=== PATIENT | male | born 1950 | race Two or more races ===

== ENCOUNTER 2023-09-03 10:27 | Emergency (ER) | payer OTHER, MEDICAID ==
[~2023-09-03] VITALS: Ht 180.3 cm; Wt 84.0 kg
[2023-09-03 16:27] VITALS: BP 162/88; PULSE 66; RESP 18; TEMP 98.1; O2SAT 99
== END 2023-09-03 19:03 | disposition home or self-care (01) ==
LOC: EDBD 10:27 → ER 10:27
DX: S30.0XXA Contusion of lower back and pelvis, initial encounter (principal); I10 Essential (primary) hypertension; I25.2 Old myocardial infarction; Z88.0 Allergy status to penicillin; W18.09XA Striking against other object with subsequent fall, initial encounter; Y93.01 Activity, walking, marching and hiking; Y92.090 Kitchen in other non-institutional residence as the place of occurrence of the external cause; Y99.8 Other external cause status
CPT/HCPCS: 72100; 73502; 93005

== ENCOUNTER 2024-10-03 11:15 | Inpatient (IN) | payer OTHER, MEDICAID ==
[~2024-10-03] VITALS: Ht 180.3 cm; Wt 65.8 kg
[~2024-10-03 11:15] MED LIST: AMLO1TAB22 PO; ASPI-325 PO; ATOR40TA52 PO; CHOL20007 PO; CLOP75TA70 PO; FURO20TA3 PO; ISOS10TA5 PO; LUBI24CA7 PO; MET25T PO; SPIR25TA8 PO
--- NOTE | 2024-10-03 11:51 | ED.PDOC ---
General HPI Comments 73Y M with PMHx HTN and CVA presents to ED via EMS for chief complaint hematuria and penile bleeding [id number]. Additional symptoms include confusion, weakness, and decreased mentation. Pt was seen at [facility] 6weeks ago and was placed on indwelling catheter. Pt has been bed bound after the hospitalization. Time Seen by MD: 11:25 Primary Care Provider: UNKNOWN Reviewed notes: Assistant Floor Covering Printer Notes, Medications, Allergies Allergies: Coded Allergies: Penicillins (Verified Allergy, Severe, 09/03/23) Aspirin (Verified Allergy, Mild, 10/11/23) Lisinopril (Verified Allergy, Mild, 10/15/23) Ibuprofen (Verified Allergy, Unknown, 10/11/23) Home Meds Active Scripts Metoprolol Tartrate (Lopressor) 25 Mg Tb, 12.5 MG PO BID for 90 Days, #90 TAB Prov:RAMESH MENDIOLA MD 10/12/23 Clopidogrel Bisulfate (CLOPIDOGREL) 75 Mg Tab, 75 MG PO DAILY for 90 Days, #90 TAB Prov:RAMESH MENDIOLA MD 10/12/23 Aspirin (Aspirin Low Dose) 81 Mg Tab, 81 MG PO DAILY for 90 Days, #90 TAB 3 Refills Prov:RAMESH MENDIOLA MD 10/12/23 Reported Medications Cholecalciferol (VITAMIN D3) 2,000 Unit Tab, 1000 TAB PO DAILY, TAB 10/10/23 Spironolactone (Spironolactone) 25 Mg Tab, 0.5 TAB PO DAILY, #90 TAB 1 Refill 10/10/23 Lubiprostone (Amitiza) 24 Mcg Cap, 1 CAP PO BIDWM, #60 CAP 5 Refills 10/10/23 Isosorbide Mononitrate (Isosorbide Mononitrate) 10 Mg Tab, 20 MG PO DAILY for 30 Days, MG 10/10/23 Furosemide (Furosemide) 20 Mg Tab, 20 MG PO DAILY for 30 Days, MG 10/10/23 Atorvastatin Calcium (ATORVASTATIN CALCIUM) 40 Mg Tab, 1 TAB PO HS, #30 TAB 5 Refills 10/10/23 Amlodipine Besylate (Amlodipine Besylate) 5 Mg Tab, 10 MG PO DAILY for 30 Days, MG 10/10/23 Information Source: Patient Mode of Arrival: EMS Brought in by: EMS Severity: Moderate Timing: Weeks Duration: Since onset Onset: Spontaneous Symptoms: Hematuria History of: Other Location: None Modifying factors: None associated signs and symptoms: Hematuria, Other Past Medical History PAST MEDICAL HISTORY: CAD, CVA, Dementia, HTN, [place] Surgical History: Denies all surgeries Family History Family History: Unknown Social History Smoker: Non-Smoker Alcohol: Denies ETOH Use Drugs: Denies Drug Use Lives In: Assisted Care Constitutional: reports: fatigue, malaise, weakness; denies: chills, diaphoresis, fever, sweats, others EENTM: denies: blurred vision, double vision, ear bleeding, ear discharge, ear drainage, ear pain, ear ringing, eye pain, eye redness, hearing loss, mouth pain, mouth swelling, nasal discharge, nose bleeding, nose congestion, nose pain, photophobia, tearing, throat pain, throat swelling, voice changes, others Respiratory: denies: cough, hemoptysis, orthopnea, SOB at rest, shortness of breath, SOB with excertion, stridor, wheezing, others Cardiovascular: denies: chest pain, dizzy spells, diaphoresis, Dyspnea on exertion, edema, irregular heart beat, left arm pain, lightheadedness, palpitations, PND, syncope, others Gastrointestinal: denies: abdomen distended, abdominal pain, blood streaked bowels, constipated, diarrhea, dysphagia, difficulty swallowing, hematemesis, melena, nausea, poor appetite, poor fluid intake, rectal bleeding, rectal pain, vomiting, others Genitourinary: reports: hematuria; denies: burning, dysuria, flank pain, janet quency, incontinence, penile discharge, penile sore, pain, testicle pain, testicle swelling, urgency, others Neurological: denies: dizziness, fainting, headache, left sided numbness, left sided weakness, numbness, paresthesia, pre-existing deficit, right sided numbness, right sided weakness, seizure, speech problems, tingling, tremors, weakness, others Musculoskeletal: denies: back pain, gout, joint pain, joint swelling, muscle pain, muscle stiffness, neck pain, others Integumetry: denies: bruises, change in color, change in hair/nails, dryness, laceration, lesions, lumps, rash, wounds, others Allergic/Immunocompromised: denies: Difficulty Healing, Frequent Infections, Hi ves, Itching, others Hematologic/Lymphatic: denies: anemia, blood clots, easy bleeding, easy bruising, swollen glands, others Endocrine: denies: excessive hunger, excessive sweating, excessive thirst, excessive urination, flushing, intolerance to cold, intolerance to heat, unexplained weight gain, unexplained weight loss, others Psychiatric: denies: anxiety, bipolar disorder, depression, hopeless, panic disorder, schizophrenia, sleepless, suicidal, others All Other Systems: Reviewed and Negative Physical Exam General Appearance: Moderate Distress, Normal HEENT: Normal ENT Inspection, Pharynx Normal, TMs Normal Neck: Full Range of Motion, Non-Tender, Normal, Normal Inspection Respiratory: Chest Non-Tender, Lungs Clear, No Accessory Muscle Use, No Respiratory Distress, Normal Breath Sounds Cardiovascular: No Edema, No JVD, No Murmur, No Gallop, Normal Peripheral Pulses, Regular Rate/Rhythm Breast Exam: Deferred Gastrointestinal: No Organomegaly, Non Tender, No Pulsatile Mass, Normal Bowel Sounds, Soft Genitalia: Deferred Pelvic: Deferred Rectal: Deferred Extremities: No calf tenderness, Normal capillary refill, Non-tender, No pedal edema Musculoskeletal : Apperance: Normal Neurologic: Disoriented, Motor Weakness Cerebellar Function: NOT DONE Reflexes: NOT DONE Skin: Dry, Normal Color, Warm Peripheral Pulses: 3+ Radial (R), 3+ Radial (L) Lymphatic: No Adenopathy Was a procedure done? Was a procedure done?: No Differential Diagnosis Kidney stone (Female): Musculoskeletal pain, Urinary obstruction, Urolithiasis Kidney stone (Male): Urolithiasis, Urinary tract infection Urinary Problem (Female): N/A X-Ray, Labs, Meds, VS Vital Signs Date Time Temp Pulse Resp B/P (MAP) Pulse Ox O2 Delivery O2 Flow Rate FiO2 10/03/24 12:18 60 10/03/24 12:12 99.0 20 18 145/87 (106) 99 10/03/24 12:10 61 16 98 Room Air* 0 21 10/03/24 12:10 61 16 146/78 (100) 98 10/03/24 11:22 166 Lab Test 10/03/24 14:25 10/03/24 11:50 Range/Units Urine Color Light-brown Yellow Urine Clarity Turbid H Clear Urine pH 6.0 5.0-9.0 Urine Specific [place] 1.015 1.001-1.035 Urine Protein 3+ H Negative Urine Ketones Negative Negative Urine Blood 3+ H Negative /uL Urine Nitrite 2+ H Negative Urine Bilirubin Negative Negative Urine Urobilinogen Normal Negative mg/dL Urine Leukocyte Esterase 3+ Negative /uL Urine RBC 1017 0 - 3 /hpf Urine WBC 228 0 - 3 /hpf Urine WBC Clumps Present None Seen /hpf Urine Squamous Epithelial Cells Few <5 /hpf Urine Bacteria Many H None Seen /hpf Urine Mucus Few None Seen Urine Glucose Normal Normal mg/dL White Blood Count 5.8 4.4-10.8 10^3/uL Red Blood Count 3.34 L 4.5-5.90 10^6/uL Hemoglobin 10.2 L 13.5-17.5 g/dL Hematocrit 30.7 L 41.0-53.0 % Mean Corpuscular Volume 92.1 80.0-100.0 fL Mean Corpuscular Hemoglobin 30.6 28.0-32.0 pg Mean Corpuscular Hemoglobin Concent 33.2 32.0-36.0 g/dL Red Cell Distribution Width 17.9 H 11.8-14.3 % Platelet Count 341 140-450 10^3/uL Mean Platelet Volume 7.3 6.9-10.8 fL Neutrophils (%) (Auto) 71.1 37.0-80.0 % Lymphocytes (%) (Auto) 18.8 10.0-50.0 % Monocytes (%) (Auto) 6.5 0.0-12.0 % Eosinophils (%) (Auto) 2.7 0.0-7.0 % Basophils (%) (Auto) 0.9 0.0-2.0 % Neutrophils # (Auto) 4.1 1.6-8.6 10 ^3/uL Lymphocytes # (Auto) 1.1 0.4-5.4 10 ^3/uL Monocytes # (Auto) 0.4 0-1.3 10 ^3/uL Eosinophils # (Auto) 0.2 0-0.8 10 ^3/uL Basophils # (Auto) 0.1 0-0.2 10 ^3/uL Nucleated Red Blood Cells 0.1 % Sodium Level 143 136-145 mmol/L Potassium Level 4.8 3.5-5.1 mmol/L Chloride Level 112 H 98-107 mmol/L Carbon Dioxide Level 25 20-31 mmol/L Anion Gap 6 5-15 Blood Urea Nitrogen 36 H 9-23 mg/dL Creatinine 2.44 H 0.700-1.30 mg/dL Glomerular Filtration Rate Calc 27 >90 mL/min BUN/Creatinine Ratio 14.8 10.0-20.0 Serum Glucose 82 74-106 mg/dL Calcium Level 9.1 8.7-10.4 mg/dL Troponin I High Sensitivity 18 </=54 ng/L [place] [id number] Ph: [phone] DIAGNOSTIC IMAGING Diagnostic Imaging Report : [id number] Signed PATIENT: SUMAN GARCIA ACCT: [id number] UNIT: [id number] : 1950 LOC: ER ROOM / BED: / AGE / SEX: 73 / M ADM STATUS: REG ER SERVICE 26 ORDERING PHYSICIAN: DANIEL BUNN MD PROCEDURE(s): CXRP - CHEST PORTABLE REASON: sob ORDER NUMBER(s): [id number], ACCESSION NUMBER(s): [id number] CHEST RADIOGRAPH Indication: sob Technique: Single frontal view of the chest was obtained Comparison: XY CHEST PORTABLE on DOS: 10/12/23 FINDINGS: Lines and Tubes: None Lungs: Pulmonary vascular congestion. Pleura: No effusion. No pneumothorax. Cardiomediastinal contours: Unremarkable Bones: No acute osseous abnormality. IMPRESSION: Pulmonary vascular congestion. ATED BY: JAZMINE CARTER MD DICTATED DATE/TIME: 10/03/241220 SIGNED BY: JAZMINE CARTER MD SIGNED DATE/TIME: 10/03/24 1221 CC: Patient answers to name. States that she he has been disoriented. Family informed the paramedics. Vitals stable. Waiting for family. Chest x-ray reviewed does show congestion. He is bed ridden. History of CVA. Possible sepsis from urine. Kidney function elevated. Establish intravenous access. Was given fluids. Was given Bactrim antibiotic. Reviewed his previous visit. Time of 1ST Reevaluation: 11:55 Reevaluation 1ST: Unchanged Patient Education/Counseling: Diagnosis, Treatment Family Education/Counseling: No Family Present Departure 1 Departure Time of Disposition: 17:24 Impression: Primary Impression: Sepsis due to urinary tract infection Additional Impression: Metabolic encephalopathy Disposition: ADMITTED INPATIENT Admit to: Med Surg Condition: Guarded Critical Care Note Critical Care Time?: Yes (45 min-critical care time only) Stability Stability form required: No Heart Score Heart Score: Heart Score Response (Comments) Value History Slightly Suspicious 0 EKG Normal 0 Age >65 2 Risk Factors >3 or Hx ASHD 2 Troponin Normal limit 0 Total 4 I personally scribed for DANIEL BUNN MD ([email or web address]) on 10/03/24 at 11:51. Electronically submitted by Rae Hall ([email or web address]). I personally scribed for DANIEL BNUN MD ([email or web address]) on 10/03/24 at 14:30. Electronically submitted by Rae Hall ([email or web address]). I personally scribed for DANIEL BUNN MD ([email or web address]) on 10/03/24 at 17:20. Electronically submitted by Alice Meadows ([email or web address]). DANIEL BUNN MD Oct 03, 2024 11:51
[2024-10-03 12:03] LABS: Basophils # (auto) 0.1 10 ^3/uL (0-0.2); Basophils % (auto) 0.9 % (0.0-2.0); Eosinophils # (auto) 0.2 10 ^3/uL (0-0.8); Eosinophils % (auto) 2.7 % (0.0-7.0); Hematocrit 30.7 % (41.0-53.0); Hemoglobin 10.2 g/dL (13.5-17.5); Lymphocytes # (auto) 1.1 10 ^3/uL (0.4-5.4); Lymphocytes % (auto) 18.8 % (10.0-50.0); Mean Corpuscular Hemoglobin 30.6 pg (28.0-32.0); Mean Corpuscular Hgb Conc. 33.2 g/dL (32.0-36.0); Mean Corpuscular Volume 92.1 fL (80.0-100.0); Monocytes # (auto) 0.4 10 ^3/uL (0-1.3); Monocytes % (auto) 6.5 % (0.0-12.0); Neutrophils # (auto) 4.1 10 ^3/uL (1.6-8.6); Neutrophils % (auto) 71.1 % (37.0-80.0); Nucleated Red Blood Cells % 0.1 %; Platelet Count (auto) 341 10^3/uL (140-450); Red Blood Cells 3.34 10^6/uL (4.5-5.90); Red Cell Distribution Width 17.9 % (11.8-14.3); White Blood Cell 5.8 10^3/uL (4.4-10.8)
[2024-10-03 12:10] VITALS: PULSE 61; RESP 16; O2SAT 98
[2024-10-03 12:13] LABS: Anion Gap 6 (5-15); Carbon Dioxide 25 mmol/L (20-31); Potassium 4.8 mmol/L (3.5-5.1); Sodium 143 mmol/L (136-145)
[2024-10-03 12:14] LABS: Calcium 9.1 mg/dL (8.7-10.4)
[2024-10-03 12:19] LABS: BUN/Creatinine Ratio 14.8 (10.0-20.0); Glucose 82 mg/dL (74-106)
[2024-10-03 12:22] LABS: Blood Urea Nitrogen 36 mg/dL (9-23); Chloride 112 mmol/L (98-107)
--- NOTE | 2024-10-03 12:23 | DVH ---
CHEST RADIOGRAPH Indication: sob Technique: Single frontal view of the chest was obtained Comparison: XY CHEST PORTABLE on DOS: 10/12/23 FINDINGS: Lines and Tubes: None Lungs: Pulmonary vascular congestion. Pleura: No effusion. No pneumothorax. Cardiomediastinal contours: Unremarkable Bones: No acute osseous abnormality. IMPRESSION: Pulmonary vascular congestion.
[2024-10-03 14:50] LABS: Urine Bacteria MANY /hpf (None Seen); Urine Blood 3+ /uL (Negative); Urine Clarity Turbid (Clear); Urine Color Light-Brown (Yellow); Urine Mucus FEW (None Seen); Urine Protein, UAD 3+ (Negative); Urine Specific Gravity 1.015 (1.001-1.035); Urine Squamous Epithelial Cell FEW /hpf (<5); Urine Urobilinogen Normal (Negative); Urine WBC 228 /hpf (0 - 3); Urine WBC Clumps PRESENT /hpf (None Seen)
[2024-10-03] MEDS: SODIUM CHLORIDE 0.9% 1,000 ML IV ONE (19:13)
--- NOTE | 2024-10-03 19:13 | ECG ---
[facility] Test Date: 2024-10-03 Test Time: 11:19:36 Pat Name: SUMAN GARCIA Department: ED Room: [address] [place] [address] Gender: M Medicine Man: BOBBY : 1950 Requested By: DANIEL BUNN Order Number: [id number] Reading MD: Dionicio Saha Measurements Intervals [place] Rate: 76 P: 0 SC: 0 QRS: 104 QRSD: 164 T: 0 QT: 367 QTc: 413 Interpretive Statements Atrial fibrillation Paired ventricular premature complexes Right bundle branch block Consider left ventricular hypertrophy Repol abnrm, global ischemia, diffuse leads Artifact in lead(s) II,III,aVR,aVL,aVF,V1,V3,V4,V5,V6 Electronically Signed On 10-04-2024 14:14:29 PST by Dionicio Saha Please click the below link to view image of tracing.
[2024-10-03 19:30] VITALS: PULSE 60; RESP 17; O2SAT 97
[2024-10-03] MEDS: SULFAMETH-TRIMETH 80/16MG-ML 15 ML in D5W 5% 500 ML IV ONE (20:42)
--- NOTE | 2024-10-03 21:12 | DVH ---
EXAM: CT HEAD WITHOUT CONTRAST INDICATION: ALOC TECHNIQUE: CT of the head without intravenous contrast. Radiation Dose Information: CT Dose: CTDI volume is 66.65 mGy. Dose-length product is 1313.25 mGy*cm The dose indicators for CT are the volume Computed Tomography (CT) Dose Index (CTDIvol) and the Dose Length Product (DLP), and are measured in units of mGy and mGy-cm, respectively. These indicators are not patient dose, but values generated from the CT scanner acquisition factors. The report includes radiation exposure data for exposures received during this examination. COMPARISON: None FINDINGS: There is no evidence of acute intracranial hemorrhage, extra-axial collection, mass effect, midline s hift, herniation or hydrocephalus. Cortical atrophy with mild periventricular microvascular angiopathy. The ventricles, sulci and cisterns are age appropriate. The crocker-white differentiation is intact. Patchy periventricular and subcortical white matter hypoattenuation is nonspecific but may be related to small vessel ischemic disease. The visualized paranasal sinuses and mastoid air cells are clear. The surrounding soft tissues and osseous structures are unremarkable. IMPRESSION: No acute intracranial hemorrhage. 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 No CT findings of territorial ischemia.
[2024-10-04 04:16] LABS: COVID19 ANTIGEN SOFIA FIA NEGATIVE (NEGATIVE)
[2024-10-04 07:30] VITALS: PULSE 60; RESP 18; O2SAT 95
--- NOTE | 2024-10-04 08:33 | DVHHP2 ---
History of Present Illness Reason for Visit: Hematuria History of Present Illness This 73-year-old male presents in the ED via EMS with a chief complaint of hematuria. The patient is currently alert and oriented, denies chest pain, shortness of breath, abdominal pain, or other acute symptoms. In the emergency department the patient is mildly confused, and is found to have UTI, possible sepsis for which warrant admission. Past medical history of hypertension, CVA, CAD, BPH, IBS, and bed-bound. Past Medical History As stated in HPI Past Surgical History PCI Family History Reviewed, non-contributory to the management of this case. Past Social History The patient lives at home, denies smoking, alcohol or illicit drugs abuse. Review of Systems Constitutional: Yes: Malaise; No: Fever, Chills, Sweats, Weakness, Other Eyes: No: Pain, Vision change, Conjunctivae inflammation, Eyelid inflammation, Other, Redness ENT: No: Ear pain, Ear discharge, Nose pain, Nose discharge, Nose congestion, Mouth pain, Mouth swelling, Throat pain, Throat swelling, Other Respiratory: No: Cough, Dry, Shortness of breath, SOB with excertion, Wheezing, Hemoptysis, Pleuritic Pain, Sputum, Wheezing, Other Cardiovascular: No: Chest Pain, Palpitations, Orthopnea, Paroxysmal Noc. Dyspnea, Edema, Lt Headedness, Other Gastrointestinal: No: Nausea, Vomiting, Abdominal Pain, Diarrhea, Constipation, Melena, Hematochezia, Other Genitourinary: No Dysuria, No Frequency, No Incontinence; Hematuria; No Retention, No Other Musculoskeletal: No: other, neck pain, shoulder pain, arm pain, back pain, hand pain, leg pain, foot pain Skin: No: Rash, Lesions, Jaundice, Bruising, Other Neurological: No: Weakness, Numbness, Incoordination, Change in speech, Confusion, Seizures, Other Allergies: Coded Allergies: Penicillins (Verified Allergy, Severe, 09/03/23) Aspirin (Verified Allergy, Mild, 10/11/23) Lisinopril (Verified Allergy, Mild, 10/15/23) Ibuprofen (Verified Allergy, Unknown, 10/11/23) Exam Vital Signs Vital Signs Date Time Temp Pulse Resp B/P (MAP) Pulse Ox O2 Delivery O2 Flow Rate FiO2 10/04/24 08:00 60 10/04/24 02:00 16 167/82 (110) 99 10/03/24 19:30 97.9 97.9 10/03/24 19:30 Room Air* 0 21 General Appearance: Alert, Cooperative, mild distress HEENT: Atraumatic, PERRLA, EOMI, Mucous membr. moist/pink Respiratory: Clear to auscultation, Normal air movement Cardiovascular: Regular rate, Normal S1, Normal S2 Abdominal: Normal bowel sounds, Soft, No tenderness, No hepatospenomegaly Extremities: No clubbing, No cyanosis, No edema, Normal pulses, No tenderness/swelling Skin: No rashes, No breakdown, No significant lesion Neuro: Other (Right-sided weakness s/p CVA) Psych/Mental Status: Mental status NL Labs/Xrays Labs Test 10/04/24 02:52 10/03/24 21:25 10/03/24 19:35 10/03/24 14:25 Range/Units SARS-CoV-2 Antigen (Rapid) Negative NEGATIVE Troponin I High Sensitivity 23 </=54 ng/L Lactic Acid Level 0.8 0.4-2.0 mmol/L Urine Color Light-brown Yellow Urine Clarity Turbid H Clear Urine pH 6.0 5.0-9.0 Urine Specific [place] 1.015 1.001-1.035 Urine Protein 3+ H Negative Urine Ketones Negative Negative Urine Blood 3+ H Negative /uL Urine Nitrite 2+ H Negative Urine Bilirubin Negative Negative Urine Urobilinogen Normal Negative mg/dL Urine Leukocyte Esterase 3+ Negative /uL Urine RBC 1017 0 - 3 /hpf Urine WBC 228 0 - 3 /hpf Urine WBC Clumps Present None Seen /hpf Urine Squamous Epithelial Cells Few <5 /hpf Urine Bacteria Many H None Seen /hpf Urine Mucus Few None Seen Urine Glucose Normal Normal mg/dL Test 10/03/24 11:50 Range/Units White Blood Count 5.8 4.4-10.8 10^3/uL Red Blood Count 3.34 L 4.5-5.90 10^6/uL Hemoglobin 10.2 L 13.5-17.5 g/dL Hematocrit 30.7 L 41.0-53.0 % Mean Corpuscular Volume 92.1 80.0-100.0 fL Mean Corpuscular Hemoglobin 30.6 28.0-32.0 pg Mean Corpuscular Hemoglobin Concent 33.2 32.0-36.0 g/dL Red Cell Distribution Width 17.9 H 11.8-14.3 % Platelet Count 341 140-450 10^3/uL Mean Platelet Volume 7.3 6.9-10.8 fL Neutrophils (%) (Auto) 71.1 37.0-80.0 % Lymphocytes (%) (Auto) 18.8 10.0-50.0 % Monocytes (%) (Auto) 6.5 0.0-12.0 % Eosinophils (%) (Auto) 2.7 0.0-7.0 % Basophils (%) (Auto) 0.9 0.0-2.0 % Neutrophils # (Auto) 4.1 1.6-8.6 10 ^3/uL Lymphocytes # (Auto) 1.1 0.4-5.4 10 ^3/uL Monocytes # (Auto) 0.4 0-1.3 10 ^3/uL Eosinophils # (Auto) 0.2 0-0.8 10 ^3/uL Basophils # (Auto) 0.1 0-0.2 10 ^3/uL Nucleated Red Blood Cells 0.1 % Sodium Level 143 136-145 mmol/L Potassium Level 4.8 3.5-5.1 mmol/L Chloride Level 112 H 98-107 mmol/L Carbon Dioxide Level 25 20-31 mmol/L Anion Gap 6 5-15 Blood Urea Nitrogen 36 H 9-23 mg/dL Creatinine 2.44 H 0.700-1.30 mg/dL Glomerular Filtration Rate Calc 27 >90 mL/min BUN/Creatinine Ratio 14.8 10.0-20.0 Serum Glucose 82 74-106 mg/dL Calcium Level 9.1 8.7-10.4 mg/dL PROCEDURE(s): HWOCT - HEAD WITHOUT CONTRAST REASON: ALOC ORDER NUMBER(s): [id number], ACCESSION NUMBER(s): [id number] EXAM: CT HEAD WITHOUT CONTRAST INDICATION: ALOC TECHNIQUE: CT of the head without intravenous contrast. Radiation Dose Information: CT Dose: CTDI volume is 66.65 mGy. Dose-length product is 1313.25 mGy*cm The dose indicators for CT are the volume Computed Tomography (CT) Dose Index (CTDIvol) and the Dose Length Product (DLP), and are measured in units of mGy and mGy-cm, respectively. These indicators are not patient dose, but values generated from the CT scanner acquisition factors. The report includes radiation exposure data for exposures received during this examination. COMPARISON: None FINDINGS: There is no evidence of acute intracranial hemorrhage, extra-axial collection, mass effect, midline shift, herniation or hydrocephalus. Cortical atrophy with mild periventricular microvascular angiopathy. The ventricles, sulci and cisterns are age appropriate. The crocker-white differentiation is intact. Patchy periventricular and subcortical white matter hypoattenuation is nonspecific but may be related to small vessel ischemic disease. The visualized paranasal sinuses and mastoid air cells are clear. The surrounding soft tissues and osseous structures are unremarkable. IMPRESSION: No acute intracranial hemorrhage. 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 No CT findings of territorial ischemia. Assessment/Plan Assessment/Plan # rule out sepsis # acute cystitis # hematuria Admit telemetry unit Vanco per pharmacy Blood in urine culture IV fluid Indwelling urinary catheter Tamsulosin # ANALILIA on CKD IV fluid Consider Nephrology consult if does not improve # pulmonary congestion Continue with Lasix # CAD s/p PCI # HFrEF cont with Plavix, statins, BB # hypertension Continue with the spironolactone, Lasix, isosorbide Hydralazine as needed Monitor # right hemiparesis s/p CVA # bed-bound Continue with statins, Plavix # IBS Amitiza # BPH Tamsulosin, finasteride # Vit D deficiency Vitamin-D DVT prophylaxis Medical plan discussed with patient and RN Plan discussed with: Patient Date of Service: Oct 04, 2024 Billing Provider: ESTELA HOWE Common Visit Codes: [id number] INP/OBS CARE (HIGH) ESTELA HOWE Oct 04, 2024 08:33
[2024-10-04] MEDS ORDERED: SODIUM CHLORIDE 0.9% 1,000 ML IV SCH (08:45)
[2024-10-04] MEDS ORDERED: ONDANSETRON HCL 4 MG/2 ML VIAL IV PRN ×2 (08:45→10:00)
[2024-10-04] MEDS: SODIUM CHLORIDE 0.9% 1,000 ML IV SCH (10:00)
[2024-10-04] MEDS ORDERED: ENOXAPARIN SOD 30 MG/0.3 ML SYRINGE SC SCH (10:00)
[2024-10-04] MEDS: ENOXAPARIN SOD 30 MG/0.3 ML SYRINGE SC SCH (10:00)
[2024-10-04] MEDS ORDERED: FIN5T PO (10:15)
[2024-10-04] MEDS ORDERED: TAMS0.4C39 PO (10:15)
[2024-10-04] MEDS ORDERED: VANCOMYCIN PER PHARMACY 0 MG IV SCH (10:15)
[2024-10-04] MEDS: VANCOMYCIN 1GM/250ML KIT 250 ML IV ONE (11:30)
[2024-10-04 21:30] VITALS: PULSE 97; RESP 18; O2SAT 100
[2024-10-04 22:16] VITALS: BP 168/97; PULSE 65; RESP 20; TEMP 97.8; O2SAT 97
[2024-10-04 22:40] VITALS: BP 168/97; PULSE 63; RESP 20; TEMP 97.8; O2SAT 97
[2024-10-04] MEDS: ATORVASTATIN 20 MG TAB PO SCH (23:09)
[2024-10-04] MEDS: METOPROLOL TARTRATE 25 MG TAB PO SCH (23:09)
[2024-10-05 01:00] VITALS: BP 175/80; PULSE 48; RESP 20; TEMP 97.8; O2SAT 99
[2024-10-05] MEDS: hydrALAZINE HCL 20 MG/ML VL IV ONE ×2 (03:04→12:11)
[2024-10-05 05:00] VITALS: BP 143/77; PULSE 54; RESP 20; TEMP 98; O2SAT 99
[2024-10-05 08:00] VITALS: PULSE 64
[2024-10-05 08:24] LABS: Anion Gap 7 (5-15); BUN/Creatinine Ratio 13.9 (10.0-20.0); Bilirubin, Total 0.6 mg/dL (0.2-1.0); Calcium 9.2 mg/dL (8.7-10.4); Carbon Dioxide 23 mmol/L (20-31); Potassium 4.5 mmol/L (3.5-5.1)
[2024-10-05 08:31] LABS: Basophils # (auto) 0.1 10 ^3/uL (0-0.2); Basophils % (auto) 1.5 % (0.0-2.0); Eosinophils # (auto) 0.3 10 ^3/uL (0-0.8); Eosinophils % (auto) 5.6 % (0.0-7.0); Hematocrit 30.6 % (41.0-53.0); Hemoglobin 10.4 g/dL (13.5-17.5); Lymphocytes % (auto) 20.1 % (10.0-50.0); Mean Corpuscular Hemoglobin 31.6 pg (28.0-32.0); Mean Corpuscular Volume 92.8 fL (80.0-100.0); Monocytes # (auto) 0.4 10 ^3/uL (0-1.3); Monocytes % (auto) 7.8 % (0.0-12.0); Neutrophils # (auto) 3.2 10 ^3/uL (1.6-8.6); Nucleated Red Blood Cells % 0.1 %; Platelet Count (auto) 362 10^3/uL (140-450); Red Cell Distribution Width 17.9 % (11.8-14.3); White Blood Cell 4.9 10^3/uL (4.4-10.8)
[2024-10-05 08:35] LABS: Alanine Aminotransferase < 9 U/L (7-40); Albumin 2.8 g/dL (3.2-4.8); Alkaline Phosphatase 133 U/L (46-116); Aspartate Aminotransferase 11 U/L (13-40); Blood Urea Nitrogen 29 mg/dL (9-23); Chloride 115 mmol/L (98-107); Glucose 69 mg/dL (74-106); Sodium 145 mmol/L (136-145); Total Protein 5.5 g/dL (5.7-8.2)
[2024-10-05 09:00] VITALS: BP_SYST 185; BP_SYST 194; BP_DIAS 85; BP_DIAS 88; PULSE 59; RESP 23; O2SAT 99
[2024-10-05] MEDS: FINASTERIDE 5 MG TAB PO SCH (09:58)
[2024-10-05] MEDS: TAMSULOSIN HYDROCHLORIDE 0.4 MG CAP PO SCH (09:59)
[2024-10-05] MEDS: CHOLECALCIFEROL (VITD3) 1,000UNIT=25mCg TAB PO SCH (09:59)
[2024-10-05] MEDS: ASPirin-EC 81 mg tab PO SCH (09:59)
[2024-10-05] MEDS: SPIRONOLACTONE 25 MG TAB PO SCH (10:04)
[2024-10-05] MEDS: FUROSEMIDE 20 MG TAB PO SCH (10:04)
[2024-10-05] MEDS: amLODIPine BESYLATE 5 MG TAB PO SCH (10:05)
[2024-10-05] MEDS: CLOPIDOGREL BISULFATE 75 MG TAB PO SCH (10:05)
[2024-10-05] MEDS: ISOSORBIDE MONONITRATE 20 MG TAB PO SCH (10:06)
--- NOTE | 2024-10-05 11:28 | MEDREC ---
[facility] Intervention Section I [facility] Intervention: Review courses of therapy (PLEASE CONSIDER ADDING COVERAGE FOR GRAM NEGATIVE SEE PRELIMINARY URINE CULTURE) KENRICK MENDIOLA PHARMACIST Oct 05, 2024 11:28
--- NOTE | 2024-10-05 13:07 | DVHPN2 ---
Reviewed: Care Plan, H&P, Labs, Medications, Previous Orders, Radiology Changes from previous H/P or p: No Changes Eyes: No Pain, No Vision change, No Conjunctivae inflammation, No Eyelid inflammation, No Other, No Redness ENT: No Ear pain, No Ear discharge, No Nose pain, No Nose discharge, No Nose congestion, No Mouth pain, No Mouth swelling, No Throat pain, No Throat swelling, No Other Cardiovascular: No Chest Pain, No Palpitations, No Orthopnea, No Paroxysmal Noc. Dyspnea, No Edema, No Lt Headedness, No Other Respiratory: No Cough, No Dry, No Shortness of breath, No SOB with excertion, No Wheezing, No Hemoptysis, No Pleuritic Pain, No Sputum, No Other Gastrointestinal: No Nausea, No Vomiting, No Abdominal Pain, No Diarrhea, No Constipation, No Melena, No Hematochezia, No Other Genitourinary: No Dysuria, No Frequency, No Incontinence; Hematuria; No Retention, No Other Musculoskeletal: No other, No neck pain, No shoulder pain, No arm pain, No back pain, No hand pain, No leg pain, No foot pain Skin: No Rash, No Lesions, No Jaundice, No Bruising, No Other Objective Vitals Vital Signs Date Time Temp Pulse Resp B/P (MAP) Pulse Ox O2 Delivery O2 Flow Rate FiO2 10/05/24 12:11 172/86 10/05/24 10:00 56 10/05/24 09:00 23 99 10/05/24 05:00 98.0 98.0 10/04/24 22:16 Room Air* 0 21 Intake/Output Intake and Output 10/05/24 07:00 Intake Total 300 ml Output Total 3150 ml Balance -2850 ml Intake Oral 200 ml IV Total 100 ml Output Urine Total 3150 ml # Bowel Movements 1 Medications Current Medications Medications Dose Ordered Sig/Yue Route Start Time Stop Time Status Last Admin Dose Admin Sodium Chloride 1,000 ml @ 100 mls/hr Q10H IV 10/04/24 10:00 10/04/24 20:27 100 MLS/HR Ondansetron HCl 4 mg Q4HP PRN IV 10/04/24 10:00 Enoxaparin Sodium 30 mg DAILY SC 10/04/24 10:00 10/04/24 10:00 30 MG Vancomycin HCl 0 ml @ 0 mls/hr UD IV 10/04/24 10:15 Amlodipine Besylate 10 mg DAILY PO 10/05/24 10:00 Aspirin 81 mg DAILY PO 10/05/24 10:00 Clopidogrel Bisulfate 75 mg DAILY PO 10/05/24 10:00 Furosemide 20 mg DAILY PO 10/05/24 10:00 Metoprolol Tartrate 12.5 mg BID PO 10/04/24 22:00 10/04/24 23:09 12.5 MG Spironolactone 12.5 mg DAILY PO 10/05/24 10:00 Atorvastatin Calcium 40 mg HS PO 10/04/24 22:00 10/04/24 23:09 40 MG Cholecalciferol 1,000 unit DAILY PO 10/05/24 10:00 Isosorbide Mononitrate 20 mg DAILY PO 10/05/24 10:00 Patient Own Medication 1 cap BIDWM PO 10/04/24 18:00 Finasteride 5 mg DAILY PO 10/05/24 10:00 Tamsulosin HCl 0.4 mg DAILY PO 10/05/24 10:00 Laboratory Results Laboratory Tests 10/05/24 07:35 Chemistry Test 10/05/24 07:35 Albumin 2.8 g/dL (3.2-4.8) L Calcium Level 9.2 mg/dL (8.7-10.4) Total Protein 5.5 g/dL (5.7-8.2) L LFT Test 10/05/24 07:35 Alanine Aminotransferase (ALT) < 9 U/L (7-40) Alkaline Phosphatase 133 U/L (46-116) H Aspartate Amino Transferase (AST) 11 U/L (13-40) L Total Bilirubin 0.6 mg/dL (0.2-1.0) Urinalysis Test 10/03/24 14:25 Urine Color Light-brown (Yellow) Urine Clarity Turbid (Clear) H Urine pH 6.0 (5.0-9.0) Urine Specific [place] 1.015 (1.001-1.035) Urine Protein 3+ (Negative) H Urine Ketones Negative (Negative) Urine Blood 3+ /uL (Negative) H Urine Nitrite 2+ (Negative) H Urine Bilirubin Negative (Negative) Urine Urobilinogen Normal mg/dL (Negative) Urine Leukocyte Esterase 3+ /uL (Negative) Urine RBC 1017 /hpf (0 - 3) Urine WBC 228 /hpf (0 - 3) Urine WBC Clumps Present /hpf (None Seen) Urine Squamous Epithelial Cells Few /hpf (<5) Urine Bacteria Many /hpf (None Seen) H Urine Mucus Few (None Seen) Urine Glucose Normal mg/dL (Normal) Microbiology Microbiology Date/Time Source Procedure Growth Status 10/03/24 19:35 Blood Blood Culture - Preliminary Resulted 10/03/24 14:35 Urine - [place] Urine Culture - Preliminary Resulted Labs and/or images reviewed: Labs reviewed by me, Image(s) reviewed by me Assessment/Plan Assessment/Plan Sepsis Secondary to urinary tract infection Acute urinary tract infection: Urine cultures growing Gram-negative rods: Start ocephin Bacteremia with Gram-positive cocci in clusters: Start vanco COVID test negative BPH History of coronary artery disease Acute dehydration: IV fluids new line Acute kidney injury BUN 36 creatinine 2.44 improving Moderate Malnutrition Hospice revoked Time Spent 65 minutes Patient is full code Advanced care planning time 20 minutes Condition guarded [facility] Plan discussed with: Patient Date of Service: Oct 05, 2024 Billing Provider: SHUKRI ROCHA MD Common Visit Codes: [id number] CARE 30-74 MIN SHUKRI ROCHA MD Oct 05, 2024 13:07
[2024-10-05] MEDS ORDERED: HYDR25TA88 PO (13:25)
[2024-10-05] MEDS ORDERED: CYAN1TAB11 PO (13:26)
[2024-10-05] MEDS ORDERED: LEVO88TA4 PO (13:26)
[2024-10-05] MEDS: cefTRIAXone 1GM/50ML D5W 50 ML IV ONE (14:37)
[2024-10-05] MEDS: D5W/SOD CHLO 0.9% 1,000 ML IV SCH (14:37)
[2024-10-05] MEDS: VANCOMYCIN 750MG KIT 100 ML IV ONE (15:46)
[2024-10-05 20:00] VITALS: PULSE 75
[2024-10-06] VITALS (11 sets, daily range): BP systolic 133–158; BP diastolic 69–82; PULSE 56–77; RESP 16–18; TEMP 97.4–97.6; O2SAT 97–100
[2024-10-06 07:08] LABS: Basophils # (auto) 0.1 10 ^3/uL (0-0.2); Basophils % (auto) 1.3 % (0.0-2.0); Eosinophils # (auto) 0.3 10 ^3/uL (0-0.8); Eosinophils % (auto) 5.5 % (0.0-7.0); Hematocrit 28.2 % (41.0-53.0); Hemoglobin 9.5 g/dL (13.5-17.5); Lymphocytes # (auto) 1.3 10 ^3/uL (0.4-5.4); Lymphocytes % (auto) 26.7 % (10.0-50.0); Mean Corpuscular Hgb Conc. 33.8 g/dL (32.0-36.0); Mean Corpuscular Volume 94.6 fL (80.0-100.0); Monocytes # (auto) 0.5 10 ^3/uL (0-1.3); Monocytes % (auto) 9.4 % (0.0-12.0); Neutrophils # (auto) 2.8 10 ^3/uL (1.6-8.6); Neutrophils % (auto) 57.1 % (37.0-80.0); Nucleated Red Blood Cells % 0.2 %; Platelet Count (auto) 364 10^3/uL (140-450); Red Blood Cells 2.98 10^6/uL (4.5-5.90); Red Cell Distribution Width 18.1 % (11.8-14.3); White Blood Cell 4.9 10^3/uL (4.4-10.8)
[2024-10-06] MEDS: VANCOMYCIN 500mg/100mL 100 ML IV ONE (11:00)
[2024-10-06] MEDS: cefTRIAXone 1GM/50ML D5W 50 ML IV SCH (11:19)
--- NOTE | 2024-10-06 11:36 | CONS ---
Pharmacy Clinical Information: From Heart Failure Fallout Report on CQM Application, Joshua Valdivia is a 73 year old male with PMH of HTN, CVA, CAD, BPH, IBS, DM, VA, CKD, HFrEF (LVEF 30%). His home medications for heart failure include furosemide, hydralazine, and isosorbide mononitrate. His inpatient medications include furosemide, hydralazine, isosorbide mon onitrate, spironolactone, and metoprolol tartrate. Consider switching to metoprolol succinate since the 2021 HF guidelines cherie mmended sustained-release metoprolol to reduce mortality and hospitalizations. SGLT2i not currently recommended due to UTI. ARB/ARNi not currently recommended due to ANALILIA. ACEi not recommended due to allergy. ORACIO BIANCHI PHARMACIST Oct 06, 2024 11:36
[2024-10-06] MEDS: hydrALAZINE HCL 20 MG/ML VL IV PRN (11:56)
--- NOTE | 2024-10-06 11:58 | DVHPN2 ---
Reviewed: Care Plan, H&P, Labs, Medications, Previous Orders, Radiology Changes from previous H/P or p: No Changes Eyes: No Pain, No Vision change, No Conjunctivae inflammation, No Eyelid inflammation, No Other, No Redness ENT: No Ear pain, No Ear discharge, No Nose pain, No Nose discharge, No Nose congestion, No Mouth pain, No Mouth swelling, No Throat pain, No Throat swelling, No Other Cardiovascular: No Chest Pain, No Palpitations, No Orthopnea, No Paroxysmal Noc. Dyspnea, No Edema, No Lt Headedness, No Other Respiratory: No Cough, No Dry, No Shortness of breath, No SOB with excertion, No Wheezing, No Hemoptysis, No Pleuritic Pain, No Sputum, No Other Gastrointestinal: No Nausea, No Vomiting, No Abdominal Pain, No Diarrhea, No Constipation, No Melena, No Hematochezia, No Other Genitourinary: No Dysuria, No Frequency, No Incontinence; Hematuria; No Retention, No Other Musculoskeletal: No other, No neck pain, No shoulder pain, No arm pain, No back pain, No hand pain, No leg pain, No foot pain Skin: No Rash, No Lesions, No Jaundice, No Bruising, No Other Objective Vitals Vital Signs Date Time Temp Pulse Resp B/P (MAP) Pulse Ox O2 Delivery O2 Flow Rate FiO2 10/06/24 09:00 97.6 64 18 158/69 (98) 100 97.6 10/05/24 20:00 Room Air* 0 21 Intake/Output Intake and Output 10/06/24 07:00 Intake Total 1400 ml Output Total 2000 ml Balance -600 ml Intake Oral 550 ml IV Total 850 ml Output Urine Total 2000 ml Medications Current Medications Medications Dose Ordered Sig/Yue Route Start Time Stop Time Status Last Admin Dose Admin Ondansetron HCl 4 mg Q4HP PRN IV 10/04/24 10:00 Enoxaparin Sodium 30 mg DAILY SC 10/04/24 10:00 10/06/24 11:18 30 MG Vancomycin HCl 0 ml @ 0 mls/hr UD IV 10/04/24 10:15 Amlodipine Besylate 10 mg DAILY PO 10/05/24 10:00 10/05/24 14:39 10 MG Aspirin 81 mg DAILY PO 10/05/24 10:00 10/05/24 14:40 81 MG Clopidogrel Bisulfate 75 mg DAILY PO 10/05/24 10:00 10/05/24 14:40 75 MG Furosemide 20 mg DAILY PO 10/05/24 10:00 10/05/24 14:39 20 MG Metoprolol Tartrate 12.5 mg BID PO 10/04/24 22:00 10/05/24 22:58 12.5 MG Spironolactone 12.5 mg DAILY PO 10/05/24 10:00 10/05/24 14:41 12.5 MG Atorvastatin Calcium 40 mg HS PO 10/04/24 22:00 10/05/24 22:56 40 MG Cholecalciferol 1,000 unit DAILY PO 10/05/24 10:00 10/05/24 14:40 1,000 UNIT Isosorbide Mononitrate 20 mg DAILY PO 10/05/24 10:00 10/05/24 14:39 20 MG Patient Own Medication 1 cap BIDWM PO 10/04/24 18:00 Finasteride 5 mg DAILY PO 10/05/24 10:00 10/05/24 14:40 5 MG Tamsulosin HCl 0.4 mg DAILY PO 10/05/24 10:00 10/05/24 14:40 0.4 MG Ceftriaxone Sodium 50 ml @ 100 mls/hr DAILY@09 IV 10/06/24 09:00 10/06/24 11:19 100 MLS/HR Dextrose/Sodium Chloride 1,000 ml @ 125 mls/hr Q8H IV 10/05/24 13:30 10/06/24 05:32 125 MLS/HR Hydralazine HCl 10 mg Q6HP PRN IV 10/05/24 13:30 Laboratory Results Laboratory Tests 10/05/24 07:35 10/06/24 05:32 Urinalysis Test 10/03/24 14:25 Urine Color Light-brown (Yellow) Urine Clarity Turbid (Clear) H Urine pH 6.0 (5.0-9.0) Urine Specific [place] 1.015 (1.001-1.035) Urine Protein 3+ (Negative) H Urine Ketones Negative (Negative) Urine Blood 3+ /uL (Negative) H Urine Nitrite 2+ (Negative) H Urine Bilirubin Negative (Negative) Urine Urobilinogen Normal mg/dL (Negative) Urine Leukocyte Esterase 3+ /uL (Negative) Urine RBC 1017 /hpf (0 - 3) Urine WBC 228 /hpf (0 - 3) Urine WBC Clumps Present /hpf (None Seen) Urine Squamous Epithelial Cells Few /hpf (<5) Urine Bacteria Many /hpf (None Seen) H Urine Mucus Few (None Seen) Urine Glucose Normal mg/dL (Normal) Microbiology Microbiology Date/Time Source Procedure Growth Status 10/05/24 03:15 Nose MRSA Screen - Final Complete 10/03/24 19:35 Blood Blood Culture - Final Staphylococcus epidermidis Complete 10/03/24 14:35 Urine - [place] Urine Culture - Preliminary Resulted Labs and/or images reviewed: Labs reviewed by me, Image(s) reviewed by me Assessment/Plan Assessment/Plan Sepsis Secondary to acute urinary tract infection Acute urinary tract infection: Urine cultures growing Gram-negative rods: Start rocephin Blood cultures contaminated, stop vancomycin COVID test negative BPH History of coronary artery disease Acute dehydration: IV fluids new line Acute kidney injury BUN 36 creatinine 2.44 improving Moderate Malnutrition Hospice revoked Time Spent 65 minutes Patient is full code Advanced care planning time 20 minutes Condition guarded Patient came from [facility] Patient belongs to [place] Plan discussed with: Patient My Orders Orders - SHUKRI ROCHA MD Procedure Category Date Status Time Ceftriaxone 1gm/50ml PHA 10/06/24 In Process D5w (Rocephin) 09:00 * Lead Simulation Modeling Engineer CONS 10/05/24 Transmitted Consult D5w/Sod Chlo 0.9% PHA 10/05/24 In Process (D5w Ns 0.9%) 13:30 Hydralazine Injection PHA 10/05/24 In Process (Apresoline Inject 13:30 Date of Service: Oct 06, 2024 Billing Provider: SHUKRI ROCHA MD Common Visit Codes: [id number] INP/OBS CARE(HIGH) SHUKRI ROCHA MD Oct 06, 2024 11:58
--- NOTE | 2024-10-06 12:32 | MEDREC ---
[facility] Intervention Section I [facility] Intervention: Review courses of therapy (PLEASE CONSIDER DE-ESCALATION BASED ON CULTURE RESULTS (D/C VANCOMYCIN) ) KENRICK MENDIOLA PHARMACIST Oct 06, 2024 12:32
[2024-10-07] VITALS (8 sets, daily range): BP systolic 142–176; BP diastolic 48–91; PULSE 50–85; RESP 16–19; TEMP 97.3–98.3; O2SAT 96–100
--- NOTE | 2024-10-07 11:11 | DVHPN2 ---
Subjective Seen and examined at bedside. I tried calling the daughter, no answer left a VM. Patient is confused, baseline unknown. Reviewed: Care Plan, H&P, Labs, Medications, Previous Orders, Radiology Changes from previous H/P or p: No Changes Eyes: No Pain, No Vision change, No Conjunctivae inflammation, No Eyelid inflammation, No Other, No Redness ENT: No Ear pain, No Ear discharge, No Nose pain, No Nose discharge, No Nose congestion, No Mouth pain, No Mouth swelling, No Throat pain, No Throat swelling, No Other Cardiovascular: No Chest Pain, No Palpitations, No Orthopnea, No Paroxysmal Noc. Dyspnea, No Edema, No Lt Headedness, No Other Respiratory: No Cough, No Dry, No Shortness of breath, No SOB with excertion, No Wheezing, No Hemoptysis, No Pleuritic Pain, No Sputum, No Other Gastrointestinal: No Nausea, No Vomiting, No Abdominal Pain, No Diarrhea, No Constipation, No Melena, No Hematochezia, No Other Genitourinary: No Dysuria, No Frequency, No Incontinence; Hematuria; No Retention, No Other Musculoskeletal: No other, No neck pain, No shoulder pain, No arm pain, No back pain, No hand pain, No leg pain, No foot pain Skin: No Rash, No Lesions, No Jaundice, No Bruising, No Other Objective Vitals Vital Signs Date Time Temp Pulse Resp B/P (MAP) Pulse Ox O2 Delivery O2 Flow Rate FiO2 10/07/24 09:44 66 176/72 10/07/24 08:54 97.7 16 100 97.7 10/06/24 20:00 Room Air* 0 21 Intake/Output Intake and Output 10/07/24 07:00 Intake Total 2030.0 ml Output Total 1725 ml Balance 305.0 ml Intake Oral 480 ml IV Total 1550.0 ml Output Urine Total 1725 ml Exam Gen: in bed confused Cvs: N S1.S2, RRR Resp: Diminished Abd: Soft Msk: Contracture lower extremity Hand Rug Cleaner: AAO x 2 Medications Current Medications Medications Dose Ordered Sig/Yue Route Start Time Stop Time Status Last Admin Dose Admin Ondansetron HCl 4 mg Q4HP PRN IV 10/04/24 10:00 Enoxaparin Sodium 30 mg DAILY SC 10/04/24 10:00 10/07/24 09:41 30 MG Vancomycin HCl 0 ml @ 0 mls/hr UD IV 10/04/24 10:15 Amlodipine Besylate 10 mg DAILY PO 10/05/24 10:00 10/07/24 09:43 10 MG Aspirin 81 mg DAILY PO 10/05/24 10:00 10/07/24 09:41 81 MG Clopidogrel Bisulfate 75 mg DAILY PO 10/05/24 10:00 10/07/24 09:42 75 MG Furosemide 20 mg DAILY PO 10/05/24 10:00 10/07/24 09:44 20 MG Metoprolol Tartrate 12.5 mg BID PO 10/04/24 22:00 10/07/24 09:44 12.5 MG Spironolactone 12.5 mg DAILY PO 10/05/24 10:00 10/07/24 09:41 12.5 MG Atorvastatin Calcium 40 mg HS PO 10/04/24 22:00 10/06/24 21:11 40 MG Cholecalciferol 1,000 unit DAILY PO 10/05/24 10:00 10/07/24 09:41 1,000 UNIT Isosorbide Mononitrate 20 mg DAILY PO 10/05/24 10:00 10/06/24 16:06 20 MG Patient Own Medication 1 cap BIDWM PO 10/04/24 18:00 10/07/24 08:00 1 CAP Finasteride 5 mg DAILY PO 10/05/24 10:00 10/07/24 09:42 5 MG Tamsulosin HCl 0.4 mg DAILY PO 10/05/24 10:00 10/07/24 09:41 0.4 MG Ceftriaxone Sodium 50 ml @ 100 mls/hr DAILY@09 IV 10/06/24 09:00 10/07/24 09:26 100 MLS/HR Dextrose/Sodium Chloride 1,000 ml @ 125 mls/hr Q8H IV 10/05/24 13:30 10/07/24 04:34 125 MLS/HR Hydralazine HCl 10 mg Q6HP PRN IV 10/05/24 13:30 10/06/24 11:56 10 MG Laboratory Results Laboratory Tests 10/05/24 07:35 10/06/24 05:32 10/07/24 06:26 Urinalysis Test 10/03/24 14:25 Urine Color Light-brown (Yellow) Urine Clarity Turbid (Clear) H Urine pH 6.0 (5.0-9.0) Urine Specific [place] 1.015 (1.001-1.035) Urine Protein 3+ (Negative) H Urine Ketones Negative (Negative) Urine Blood 3+ /uL (Negative) H Urine Nitrite 2+ (Negative) H Urine Bilirubin Negative (Negative) Urine Urobilinogen Normal mg/dL (Negative) Urine Leukocyte Esterase 3+ /uL (Negative) Urine RBC 1017 /hpf (0 - 3) Urine WBC 228 /hpf (0 - 3) Urine WBC Clumps Present /hpf (None Seen) Urine Squamous Epithelial Cells Few /hpf (<5) Urine Bacteria Many /hpf (None Seen) H Urine Mucus Few (None Seen) Urine Glucose Normal mg/dL (Normal) Microbiology Microbiology Date/Time Source Procedure Growth Status 10/05/24 03:15 Nose MRSA Screen - Final Complete 10/03/24 19:35 Blood Blood Culture - Final Staphylococcus epidermidis Complete 10/03/24 14:35 Urine - [place] Urine Culture - Final Escherichia coli Complete Assessment/Plan Assessment/Plan # Bacteremia - Repeat Blood Cultures - Vanco # Sepsis ruled out # Metabolic Encephalopathy - UA - Cont Rocephin # Possible Dementia??? - Baseline unknown # Wheelchair / bed bound? - Was on hospice # Severe protein calorie malnutrition - Dietary Cx # DVT Prop- Lovenox Subq Plan discussed with: Patient My Orders Orders - LYN CORDERO MD Procedure Category Date Status Time Dietary Cons For NOURISH 10/07/24 Transmitted Malnutrition 11:03 Complete Blood Count LAB 10/08/24 Verified 04:00 Comprehensive LAB 10/08/24 Verified Metabolic Panel 04:00 Magnesium LAB 10/08/24 Verified 04:00 Pt Request For Service PT 10/07/24 Transmitted 11:04 Blood Culture LEONID 10/07/24 Transmitted 11:04 Discontinue Tele IGLESIA 10/07/24 Transmitted 11:04 Date of Service: Oct 07, 2024 Billing Provider: LYN CORDERO MD Common Visit Codes: [id number] INP/OBS CARE(HIGH) LYN CORDERO MD Oct 07, 2024 11:11
[2024-10-07 13:17] LABS: Folate (Folic Acid) 7.45 ng/mL (>5.38)
--- NOTE | 2024-10-07 15:22 | ECG ---
[facility] Test Date: 2024-10-06 Test Time: 13:17:55 Pat Name: SUMAN GARCIA Department: Room: 0286T Gender: M Ob Tech: michael yang : 1950 Requested By: ESTELA HOWE Order Number: [id number] Reading MD: Karis Hussein Measurements Intervals [place] Rate: 130 P: 0 OR: 0 QRS: 16 QRSD: 144 T: 66 QT: 493 QTc: 725 Interpretive Statements Likely ectopic atrial rhythm Ventricular premature complexes Aberrant conduction of SV complex(es) Consider LVH Artifact in lead(s) III,aVL,aVF,V1,V2,V3,V4,V5,V6 Electronically Signed On 10-07-2024 21:14:59 PST by Karis Hussein Please click the below link to view image of tracing.
--- NOTE | 2024-10-07 15:22 | ECG ---
[facility] Test Date: 2024-10-06 Test Time: 13:13:47 Pat Name: SUMAN GARCIA Department: Room: 0286T Gender: M Wire Transfer Clerk: michael yang : 1950 Requested By: ESTELA HOWE Order Number: [id number] Reading MD: Karis Hussein Measurements Intervals [place] Rate: 59 P: 254 AR: 165 QRS: 57 QRSD: 116 T: 80 QT: 477 QTc: 473 Interpretive Statements Sinus or ectopic atrial rhythm Ventricular trigeminy Probable left ventricular hypertrophy Artifact in lead(s) I,III,aVR,aVL,aVF,V1,V2,V6 Electronically Signed On 10-07-2024 21:13:58 PST by Karis Hussein Please click the below link to view image of tracing.
[2024-10-07] MEDS: VANCOMYCIN 750MG KIT 100 ML IV ONE (16:42)
[2024-10-08] VITALS (8 sets, daily range): BP systolic 112–154; BP diastolic 49–83; PULSE 56–85; RESP 16–20; TEMP 97.3–97.9; O2SAT 67–100
[2024-10-08 07:18] LABS: Basophils # (auto) 0.1 10 ^3/uL (0-0.2); Basophils % (auto) 2.6 % (0.0-2.0); Eosinophils # (auto) 0.2 10 ^3/uL (0-0.8); Eosinophils % (auto) 5.7 % (0.0-7.0); Hematocrit 27.2 % (41.0-53.0); Hemoglobin 9.2 g/dL (13.5-17.5); Lymphocytes # (auto) 1.2 10 ^3/uL (0.4-5.4); Lymphocytes % (auto) 30.7 % (10.0-50.0); Mean Corpuscular Hemoglobin 31.2 pg (28.0-32.0); Mean Corpuscular Hgb Conc. 33.8 g/dL (32.0-36.0); Mean Corpuscular Volume 92.3 fL (80.0-100.0); Monocytes # (auto) 0.3 10 ^3/uL (0-1.3); Monocytes % (auto) 7.7 % (0.0-12.0); Neutrophils # (auto) 2.2 10 ^3/uL (1.6-8.6); Neutrophils % (auto) 53.3 % (37.0-80.0); Platelet Count (auto) 348 10^3/uL (140-450); Red Blood Cells 2.95 10^6/uL (4.5-5.90); Red Cell Distribution Width 17.2 % (11.8-14.3); White Blood Cell 4.1 10^3/uL (4.4-10.8)
[2024-10-08 07:38] LABS: Anion Gap 8 (5-15); BUN/Creatinine Ratio 11.9 (10.0-20.0); Calcium 8.8 mg/dL (8.7-10.4); Carbon Dioxide 21 mmol/L (20-31); Magnesium 1.8 mg/dL (1.6-2.6); Potassium 4.3 mmol/L (3.5-5.1); Sodium 141 mmol/L (136-145)
[2024-10-08 07:39] LABS: Bilirubin, Total 0.4 mg/dL (0.2-1.0)
[2024-10-08 07:41] LABS: Alanine Aminotransferase 9 U/L (7-40); Albumin 2.8 g/dL (3.2-4.8); Alkaline Phosphatase 121 U/L (46-116); Aspartate Aminotransferase 10 U/L (13-40); Blood Urea Nitrogen 24 mg/dL (9-23); Chloride 112 mmol/L (98-107); Glucose 72 mg/dL (74-106); Total Protein 5.5 g/dL (5.7-8.2)
--- NOTE | 2024-10-08 16:28 | DVHPN2 ---
Subjective Seen and examined at bedside. Repeat cultures POSITIVE. Will need BRYAN. Reviewed: Care Plan, H&P, Labs, Medications, Previous Orders, Radiology Changes from previous H/P or p: No Changes Eyes: No Pain, No Vision change, No Conjunctivae inflammation, No Eyelid inflammation, No Other, No Redness ENT: No Ear pain, No Ear discharge, No Nose pain, No Nose discharge, No Nose congestion, No Mouth pain, No Mouth swelling, No Throat pain, No Throat swelling, No Other Cardiovascular: No Chest Pain, No Palpitations, No Orthopnea, No Paroxysmal Noc. Dyspnea, No Edema, No Lt Headedness, No Other Respiratory: No Cough, No Dry, No Shortness of breath, No SOB with excertion, No Wheezing, No Hemoptysis, No Pleuritic Pain, No Sputum, No Other Gastrointestinal: No Nausea, No Vomiting, No Abdominal Pain, No Diarrhea, No Constipation, No Melena, No Hematochezia, No Other Genitourinary: No Dysuria, No Frequency, No Incontinence; Hematuria; No Retention, No Other Musculoskeletal: No other, No neck pain, No shoulder pain, No arm pain, No back pain, No hand pain, No leg pain, No foot pain Skin: No Rash, No Lesions, No Jaundice, No Bruising, No Other Objective Vitals Vital Signs Date Time Temp Pulse Resp B/P (MAP) Pulse Ox O2 Delivery O2 Flow Rate FiO2 10/08/24 13:00 97.4 73 16 147/83 (104) 98 97.4 10/07/24 20:00 Room Air* 0 21 Intake/Output Intake and Output 10/08/24 07:00 Intake Total 1400 ml Output Total 2075 ml Balance -675 ml Intake Oral 1400 ml Output Urine Total 2075 ml Exam Gen: in bed confused Cvs: N S1.S2, RRR Resp: Diminished Abd: Soft Msk: Contracture lower extremity Scrap Bunch Maker: AAO x 2 Medications Current Medications Medications Dose Ordered Sig/Yue Route Start Time Stop Time Status Last Admin Dose Admin Ondansetron HCl 4 mg Q4HP PRN IV 10/04/24 10:00 Enoxaparin Sodium 30 mg DAILY SC 10/04/24 10:00 10/08/24 09:50 30 MG Vancomycin HCl 0 ml @ 0 mls/hr UD IV 10/04/24 10:15 Amlodipine Besylate 10 mg DAILY PO 10/05/24 10:00 10/08/24 09:53 10 MG Aspirin 81 mg DAILY PO 10/05/24 10:00 10/08/24 09:53 81 MG Clopidogrel Bisulfate 75 mg DAILY PO 10/05/24 10:00 10/08/24 09:51 75 MG Furosemide 20 mg DAILY PO 10/05/24 10:00 10/07/24 09:44 20 MG Metoprolol Tartrate 12.5 mg BID PO 10/04/24 22:00 10/07/24 21:06 12.5 MG Spironolactone 12.5 mg DAILY PO 10/05/24 10:00 10/08/24 09:52 12.5 MG Atorvastatin Calcium 40 mg HS PO 10/04/24 22:00 10/07/24 21:06 40 MG Cholecalciferol 1,000 unit DAILY PO 10/05/24 10:00 10/08/24 09:50 1,000 UNIT Isosorbide Mononitrate 20 mg DAILY PO 10/05/24 10:00 10/08/24 09:51 20 MG Patient Own Medication 1 cap BIDWM PO 10/04/24 18:00 10/08/24 08:11 1 CAP Finasteride 5 mg DAILY PO 10/05/24 10:00 10/08/24 09:50 5 MG Tamsulosin HCl 0.4 mg DAILY PO 10/05/24 10:00 10/08/24 09:53 0.4 MG Ceftriaxone Sodium 50 ml @ 100 mls/hr DAILY@09 IV 10/06/24 09:00 10/08/24 08:10 100 MLS/HR Hydralazine HCl 10 mg Q6HP PRN IV 10/05/24 13:30 10/07/24 17:27 10 MG Laboratory Results Laboratory Tests 10/08/24 06:29 Chemistry Test 10/08/24 06:29 Albumin 2.8 g/dL (3.2-4.8) L Calcium Level 8.8 mg/dL (8.7-10.4) Magnesium Level 1.8 mg/dL (1.6-2.6) Total Protein 5.5 g/dL (5.7-8.2) L LFT Test 10/08/24 06:29 Alanine Aminotransferase (ALT) 9 U/L (7-40) Alkaline Phosphatase 121 U/L (46-116) H Aspartate Amino Transferase (AST) 10 U/L (13-40) L Total Bilirubin 0.4 mg/dL (0.2-1.0) Urinalysis Test 10/03/24 14:25 Urine Color Light-brown (Yellow) Urine Clarity Turbid (Clear) H Urine pH 6.0 (5.0-9.0) Urine Specific [place] 1.015 (1.001-1.035) Urine Protein 3+ (Negative) H Urine Ketones Negative (Negative) Urine Blood 3+ /uL (Negative) H Urine Nitrite 2+ (Negative) H Urine Bilirubin Negative (Negative) Urine Urobilinogen Normal mg/dL (Negative) Urine Leukocyte Esterase 3+ /uL (Negative) Urine RBC 1017 /hpf (0 - 3) Urine WBC 228 /hpf (0 - 3) Urine WBC Clumps Present /hpf (None Seen) Urine Squamous Epithelial Cells Few /hpf (<5) Urine Bacteria Many /hpf (None Seen) H Urine Mucus Few (None Seen) Urine Glucose Normal mg/dL (Normal) Microbiology Microbiology Date/Time Source Procedure Growth Status 10/07/24 11:32 Blood Blood Culture - Preliminary Resulted 10/05/24 03:15 Nose MRSA Screen - Final Complete 10/03/24 14:35 Urine - [place] Urine Culture - Final Escherichia coli Complete Assessment/Plan Assessment/Plan # Bacteremia - Repeat Blood Cultures - Vanco - BRYAN # Sepsis ruled out # Metabolic Encephalopathy - UA - Cont Rocephin # Possible Dementia??? - Baseline unknown # Wheelchair / bed bound? - Was on hospice # Severe protein calorie malnutrition - Dietary Cx # DVT Prop- Lovenox Subq Plan discussed with: Patient My Orders Orders - LYN CORDERO MD Procedure Category Date Status Time * Cardiology Consult CONS 10/08/24 Transmitted 13:32 Complete Blood Count LAB 10/09/24 Verified 04:00 Comprehensive LAB 10/09/24 Verified Metabolic Panel 04:00 C-Reactive Protein LAB 10/09/24 Verified 04:00 Erythrocyte LAB 10/09/24 Verified Sedimentation Rate 04:00 Blood Culture LEONID 10/09/24 Verified 04:00 Date of Service: Oct 08, 2024 Billing Provider: LYN CORDERO MD Common Visit Codes: [id number] INP/OBS CARE(HIGH) LYN CORDERO MD Oct 08, 2024 16:28
[2024-10-08] MEDS: VANCOMYCIN 500mg/100mL 100 ML IV ONE (16:41)
--- NOTE | 2024-10-08 16:54 | DVHINCON2 ---
Date Seen: Oct 08, 2024 Referring Physician MD Lois Reason for Consultation BRYAN History of Present Illness This is a 73-year-old male patient who presents to the emergency room with chief complaint of hematuria. At the time of assessment the patient is confused and only alert to self. Patient's daughter at bedside able to answer all questions. Per patient's daughter, she became worried when she noted blood in the patient's Bacon catheter. She reports that the patient was hospitalized in August and sent home with a urinary catheter for retention. He now comes to the emergency room for further evaluation of new onset hematuria. Cardiology is being consulted at this time for transesophageal echocardiogram request given positive blood cultures. Initial twelve lead electrocardiogram reveals ectopic rhythm with PVCs (artifact seen in almost every lead, EKG machine reading "extreme tachycardia"). Significant past medical history includes coronary artery disease status post PTCA x 1 ALIYAH to proximal to mid LAD, ischemic cardiomyopathy, history myocardial infarction x2, hypertension, hyperlipidemia, history of CVA x2 with residual left-sided deficit, type 2 diabetes mellitus, BPH with urinary retention and long-term Bacon catheter, and dementia. 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 Of note, the patient was seen at this facility on 10/10/23 for an acute anterolateral massive ST-elevation myocardial infarction in which he underwent emergent coronary angiography with successful PCI to proximal to mid LAD using a single drug-eluting stent. Past Medical History Past medical history reviewed. No other significant than mentioned above. Past Surgical History Denies Family History: Alzheimer's disease G8 FATHER Hypertension G8 MOTHER G8 FATHER Family History Family history reviewed. Social History Patient has a 63 pack-year history, quit smoking approximately one year ago Patient denies any alcohol use Patient denies any drug use Allergies: Coded Allergies: Penicillins (Verified Allergy, Severe, 09/03/23) Aspirin (Verified Allergy, Mild, 10/11/23) Lisinopril (Verified Allergy, Mild, 10/15/23) Ibuprofen (Verified Allergy, Unknown, 10/11/23) Home Meds Active Scripts Metoprolol Tartrate (Lopressor) 25 Mg Tb, 12.5 MG PO BID for 90 Days, #90 TAB Prov:RAMESH MENDIOLA MD 10/12/23 Clopidogrel Bisulfate (CLOPIDOGREL) 75 Mg Tab, 75 MG PO DAILY for 90 Days, #90 TAB Prov:ALHURANI,RAMESH E MD 10/12/23 Aspirin (Aspirin Low Dose) 81 Mg Tab, 81 MG PO DAILY for 90 Days, #90 TAB 3 Refills Prov:RAMESH MENDIOLA MD 10/12/23 Reported Medications Levothyroxine Sodium (Levothyroxine Sodium) 88 Mcg Tab, 75 MCG PO QAM for 30 Days, MCG 10/05/24 Cyanocobalamin (Vitamin B12) 1,000 Mcg Tab, 1000 MCG PO DAILY, TAB 10/05/24 Hydralazine Hcl (Hydralazine Hcl) 25 Mg Tab, 25 MG PO TID for 30 Days, MG 10/05/24 Tamsulosin Hcl (Tamsulosin Hcl) 0.4 Mg Cap, 1 CAP PO DAILY 10/04/24 Finasteride (Finasteride) 5 Mg Tab, 1 TAB PO DAILY 10/04/24 Cholecalciferol (VITAMIN D3) 2,000 Unit Tab, 1000 TAB PO DAILY, TAB 10/10/23 Spironolactone (Spironolactone) 25 Mg Tab, 0.5 TAB PO DAILY, #90 TAB 1 Refill 10/10/23 Lubiprostone (Amitiza) 24 Mcg Cap, 1 CAP PO BIDWM, #60 CAP 5 Refills 10/10/23 Isosorbide Mononitrate (Isosorbide Mononitrate) 10 Mg Tab, 20 MG PO DAILY for 30 Days, MG 10/10/23 Furosemide (Furosemide) 20 Mg Tab, 20 MG PO DAILY for 30 Days, MG 10/10/23 Atorvastatin Calcium (ATORVASTATIN CALCIUM) 40 Mg Tab, 1 TAB PO HS, #30 TAB 5 Refills 10/10/23 Amlodipine Besylate (Amlodipine Besylate) 5 Mg Tab, 10 MG PO DAILY for 30 Days, MG 10/10/23 Home Meds Home medications reviewed. Review of Systems Constitutional: No symptom reported Ears, Nose, & Throat: No symptom reported Eyes: No symptom reported Neurological: No symptoms reported Pulmonary/Respiratory: No symptoms reported Cardiovascular: No symptom reported Gastrointestinal: No symptom reported Genitourinary: Hematuria Musculoskeletal: No symptom reported Skin: No symptom reported Psychiatric: No symptom reported Endocrine: No symptom reported Hematologic/Lymphatic: No symptom reported Vital Signs Vital Signs Date Time Temp Pulse Resp B/P (MAP) Pulse Ox O2 Delivery O2 Flow Rate FiO2 1/2/25 13:00 97.4 73 16 147/83 (104) 98 97.4 10/08/24 08:00 Room Air* 0 21 Physical Exam General Appearance: Calm, relaxed. Frail Pulmonary/Respiratory: Clear, bilateral breaths sounds. Cardiovascular/Chest: Regular rate and rhythm. Peripheral Pulses: 2+ Radial (R). 2+ Radial (L). 2+ Pedal (R). 2+ Pedal (L) Abdominal Exam: Normal bowel sounds. Ankle Exam: Negative ankle edema Lower extremities: Negative lower extremity edema Neuro/Mental Status: A/OX1, confused Thoughts/Psych: Deferred Appearance: No acute distress. Skin Exam: Normal inspection. Normal color. Warm and dry. Labs/Diagnostic Data Labs Test 10/08/24 06:29 10/07/24 11:32 10/04/24 02:52 10/03/24 21:25 Range/Units White Blood Count 4.1 L 4.4-10.8 10^3/uL Red Blood Count 2.95 L 4.5-5.90 10^6/uL Hemoglobin 9.2 L 13.5-17.5 g/dL Hematocrit 27.2 L 41.0-53.0 % Mean Corpuscular Volume 92.3 80.0-100.0 fL Mean Corpuscular Hemoglobin 31.2 28.0-32.0 pg Mean Corpuscular Hemoglobin Concent 33.8 32.0-36.0 g/dL Red Cell Distribution Width 17.2 H 11.8-14.3 % Platelet Count 348 140-450 10^3/uL Mean Platelet Volume 7.2 6.9-10.8 fL Neutrophils (%) (Auto) 53.3 37.0-80.0 % Lymphocytes (%) (Auto) 30.7 10.0-50.0 % Monocytes (%) (Auto) 7.7 0.0-12.0 % Eosinophils (%) (Auto) 5.7 0.0-7.0 % Basophils (%) (Auto) 2.6 H 0.0-2.0 % Neutrophils # (Auto) 2.2 1.6-8.6 10 ^3/uL Lymphocytes # (Auto) 1.2 0.4-5.4 10 ^3/uL Monocytes # (Auto) 0.3 0-1.3 10 ^3/uL Eosinophils # (Auto) 0.2 0-0.8 10 ^3/uL Basophils # (Auto) 0.1 0-0.2 10 ^3/uL Nucleated Red Blood Cells 0.0 % Sodium Level 141 136-145 mmol/L Potassium Level 4.3 3.5-5.1 mmol/L Chloride Level 112 H 98-107 mmol/L Carbon Dioxide Level 21 20-31 mmol/L Anion Gap 8 5-15 Blood Urea Nitrogen 24 H 9-23 mg/dL Creatinine 2.02 H 0.700-1.30 mg/dL Glomerular Filtration Rate Calc 34 >90 mL/min BUN/Creatinine Ratio 11.9 10.0-20.0 Serum Glucose 72 L 74-106 mg/dL Calcium Level 8.8 8.7-10.4 mg/dL Magnesium Level 1.8 1.6-2.6 mg/dL Total Bilirubin 0.4 0.2-1.0 mg/dL Aspartate Amino Transferase (AST) 10 L 13-40 U/L Alanine Aminotransferase (ALT) 9 7-40 U/L Alkaline Phosphatase 121 H 46-116 U/L Total Protein 5.5 L 5.7-8.2 g/dL Albumin 2.8 L 3.2-4.8 g/dL Random Vancomycin Level 14.6 H 5-10 ug/mL Ammonia 25 11-32 umol/L Vitamin B12 Level 1906 H 211-911 pg/mL Folic Acid 7.45 >5.38 ng/mL Thyroid Stimulating Hormone (TSH) 1.31 0.55-4.78 uIU/mL SARS-CoV-2 Antigen (Rapid) Negative NEGATIVE Troponin I High Sensitivity 23 </=54 ng/L Test 10/03/24 19:35 10/03/24 14:25 Range/Units Lactic Acid Level 0.8 0.4-2.0 mmol/L Urine Color Light-brown Yellow Urine Clarity Turbid H Clear Urine pH 6.0 5.0-9.0 Urine Specific [place] 1.015 1.001-1.035 Urine Protein 3+ H Negative Urine Ketones Negative Negative Urine Blood 3+ H Negative /uL Urine Nitrite 2+ H Negative Urine Bilirubin Negative Negative Urine Urobilinogen Normal Negative mg/dL Urine Leukocyte Esterase 3+ Negative /uL Urine RBC 1017 0 - 3 /hpf Urine WBC 228 0 - 3 /hpf Urine WBC Clumps Present None Seen /hpf Urine Squamous Epithelial Cells Few <5 /hpf Urine Bacteria Many H None Seen /hpf Urine Mucus Few None Seen Urine Glucose Normal Normal mg/dL Microbiology Date/Time Source Procedure Growth Status 10/07/24 11:32 Blood Blood Culture - Preliminary Resulted 10/05/24 03:15 Nose MRSA Screen - Final Complete 10/03/24 14:35 Urine - [place] Urine Culture - Final Escherichia coli Complete Assessment Rule out infective endocarditis Bacteremia CAD with multi vessel disease s/p PTCA x1 ALIYAH to proximal to mid LAD (on Plavix and ASA) Ischemic cardiomyopathy Chronic HFrEF, NYHA class III CVA with residual left-sided deficit Hypertension Hyperlipidemia 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 Srivastava): We will proceed with obtaining a transthoracic echocardiogram to evaluate cardiac function. Previous echocardiogram from 10/11/23 reveals EF 30%, RVSP 60 mmHg and [id number] tricuspid valve regurgitation. We will recommend initiation of guideline directed medical therapy for CHF (avoid GANGA/ARB/ARNI given ANALILIA/CKD, hold SGLT2i given UTI). Continue dual antiplatelet therapy and lipid-lowering agent. Primary care team requesting transesophageal e chocardiogram to rule out infective endocarditis given positive blood cultures. Spoke with patient's daughter who is the decision maker given that the patient is confused from his history of dementia. Educated daughter on plans for BRYAN. Informed consent given to patient's daughter. Patient's daughter is agreeable for the patient to undergo procedure. We will schedule the patient for a transesophageal echocardiogram on 10/09/24 at first availability. Thank you for allowing us to care for this patient. Please call with any questions or concerns. Critical care time spent: 40 minutes This medical document was created using an electronic medical record system with voice recognition software and computerized dictation system. Although this document has been carefully reviewed, there might still be some phonetic and typographical errors. Occasional wrong-word or ``sound-alike substitutions may have occurred due to the inherent limitations of voice recognition software. These areas are purely typographical due to imperfections of the software programs and do not reflect any compromise in the patient's medical care. Ple ase read the chart carefully and recognize, using context, where these substitutions have occurred. Plan discussed with: Patient, Daughter NYHA Physical activity limitations: Class3(Marked) ordinary (activity causes symtoms) Date of Service: Oct 08, 2024 Billing Provider: VANESSA SRIVASTAVA MD Cardiology Common Codes: 94595-KXTXPUG INP/OBS CARE (High) Cardiology Consultation Codes: 25668-[id number] CONSULT <45MIN TED KELLY TIRE ASSEMBLER Oct 08, 2024 16:54
[2024-10-09] VITALS (7 sets, daily range): BP systolic 136–157; BP diastolic 65–76; PULSE 50–91; RESP 16–21; TEMP 97.3–98.6; O2SAT 96–100
[2024-10-09 05:07] LABS: RPR Non Reactive (Non Reactive)
--- NOTE | 2024-10-09 08:13 | DVHSR ---
APPROVED REPORT EXAM: LIMITED Two-dimensional and M-mode echocardiogram with Doppler and color Doppler. Blood Pressure: 112/65 mmHg INDICATION possible endocarditis RISK FACTORS Height: 5'11, Weight: 150 DIMENSIONS LVDd5.0 (3.8-5.7cm)LA (2D)5.1 (1.9-4.0cm)Aortic Root4.3 (2.0-3.7cm) LVDs4.1 (2.5-4.0cm)LA (MM) (1.9-4.0cm)Aortic Cusp Exc1.2 (1.5-2.0cm) EF (%) 35.0 (55-70%)Rt. Atrium5.8 (1.9-4.0cm)Asc. Aorta cm IVSd1.4 (0.7-1.1cm)RV (D) (1.8-2.4cm) PWd1.2 (0.7-1.1cm) Mitral Valve MitralMitral Stenosis E wave0.54m/sMV Mean GR.mmHg A wave0.90m/sMV Peak GR.mmHg E/A ratio0.62D MVAcm2 DECEL [id number] 1/2 Tim[place] Aortic Valve Aortic ValveAortic Stenosis V10.91m/Ponce Mean GR.4mmHg V21.42m/Ponce Peak GR.8mmHg LVOT Diameter2.2 (1.8-2.4cm)Doppler AVA2.43cm2 Pulmonic Valve V20.88m/s Tricuspid Valve TR Velocity2.58m/s [id number] LEFT VENTRICLE Normal left ventricular size. There is zvbz-nn-suyakwxh concentric left ventricular hypertrophy. Ej ection fraction is estimated at 35% based on visual estimate. There is mild global hypokinesis and l ikely akinesis of the inferior and inferolateral appiah. There is impaired relaxation of the left margarette tricle. RIGHT VENTRICLE Right ventricle is mildly dilated in size. Systolic function is preserved. ATRIA There is moderate biatrial enlargement. MITRAL VALVE There is mild mitral annular calcifications. No significant mitral regurgitation. PULMONIC VALVE Not well visualized. TRICUSPID VALVE Normal structure and function. There is trace tricuspid regurgitation. PA systolic pressure is jie mated at 35-40 mm Hg. AORTIC VALVE Trileaflet in morphology. The leaflets appear to be mildly to moderately calcified hemodynamically s ignificant stenosis. No significant regurgitation. GREAT VESSELS The aortic root is moderately dilated and measures 4.3 cm at the sinuses of Valsalva. Proximal ascen ding aorta is not well visualized. PERICARDIAL EFFUSION There is trace pericardial effusion. IVC is of normal size and collapses normally with inspiration. Conclusion Normal left ventricular size with an ejection fraction of 35%. Regional wall motion abnormalities as described above. Uuza-ek-brzysgyl concentric left ventricular hypertrophy with impaired relaxation of the left ventric le. Right ventricle is mildly dilated in size with preserved systolic function. Moderate biatrial enlargement. Calcified aortic valve with no significant stenosis. No hemodynamically significant valvular disease. PA systolic pressure is estimated at 35-40 mmHg. Mildly dilated aortic root.
[2024-10-09 11:31] LABS: Basophils # (auto) 0.1 10 ^3/uL (0-0.2); Basophils % (auto) 1.9 % (0.0-2.0); Eosinophils # (auto) 0.2 10 ^3/uL (0-0.8); Eosinophils % (auto) 6.2 % (0.0-7.0); Hematocrit 27.1 % (41.0-53.0); Hemoglobin 9.3 g/dL (13.5-17.5); Lymphocytes # (auto) 1.4 10 ^3/uL (0.4-5.4); Lymphocytes % (auto) 34.4 % (10.0-50.0); Mean Corpuscular Hemoglobin 32.5 pg (28.0-32.0); Mean Corpuscular Hgb Conc. 34.2 g/dL (32.0-36.0); Mean Corpuscular Volume 95.2 fL (80.0-100.0); Monocytes # (auto) 0.3 10 ^3/uL (0-1.3); Monocytes % (auto) 6.9 % (0.0-12.0); Neutrophils % (auto) 50.6 % (37.0-80.0); Nucleated Red Blood Cells % 0.1 %; Platelet Count (auto) 386 10^3/uL (140-450); Red Blood Cells 2.84 10^6/uL (4.5-5.90); Red Cell Distribution Width 16.9 % (11.8-14.3)
[2024-10-09 11:35] LABS: Alanine Aminotransferase 11 U/L (7-40); Anion Gap 7 (5-15); BUN/Creatinine Ratio 14.5 (10.0-20.0); Calcium 8.9 mg/dL (8.7-10.4); Carbon Dioxide 22 mmol/L (20-31); Potassium 4.8 mmol/L (3.5-5.1); Sodium 139 mmol/L (136-145)
[2024-10-09 11:36] LABS: Aspartate Aminotransferase 14 U/L (13-40)
[2024-10-09 11:37] LABS: Bilirubin, Total 0.5 mg/dL (0.2-1.0); Total Protein 5.7 g/dL (5.7-8.2)
[2024-10-09 11:39] LABS: INR 1.08 (0.9-1.15); Partial Thromboplastin Time 32.4 SEC (24.5-34.5); Prothrombin Time 11.4 sec (9.3-11.8)
[2024-10-09 11:40] LABS: Alkaline Phosphatase 127 U/L (46-116); Blood Urea Nitrogen 33 mg/dL (9-23); Chloride 110 mmol/L (98-107); Glucose 70 mg/dL (74-106)
[2024-10-09 12:00] LABS: CRP High Sensitivity 1.05 mg/dL (<1.0)
[2024-10-09 13:05] LABS: Erythrocyte Sedimentation Rate 35 mm/hr (0-20)
[2024-10-09] MEDS: VANCOMYCIN 500mg/100mL 100 ML IV SCH (17:32)
--- NOTE | 2024-10-09 19:18 | DVHPN2 ---
Subjective Confused; did not share any complaints Reviewed: Care Plan, H&P, Labs, Medications, Previous Orders, Radiology, Other (Consultations) Changes from previous H/P or p: No Changes Genitourinary: Hematuria Objective Vitals Vital Signs Date Time Temp Pulse Resp B/P (MAP) Pulse Ox O2 Delivery O2 Flow Rate FiO2 10/09/24 17:24 97.3 66 21 136/76 (96) 97.3 10/09/24 08:32 97 10/09/24 08:00 Room Air* 0 21 Intake/Output Intake and Output 10/09/24 07:00 Intake Total 650 ml Output Total 1500 ml Balance -850 ml Intake Oral 650 ml Output Urine Total 1500 ml # Bowel Movements 1 General Appearance: Other (Confused) HEENT: Atraumatic Lungs: Clear to auscultation, Normal air movement Cardiovascular: Regular rate, Normal S1, Normal S2 Abdomen: Normal bowel sounds, Soft, No tenderness Genitourinary: Other (Bacon's catheter) Neuro: Normal speech, Cranial nerves 3-12 NL Psych/Mental Status: Other (Confused) Medications Current Medications Medications Dose Ordered Sig/Yue Route Start Time Stop Time Status Last Admin Dose Admin Ondansetron HCl 4 mg Q4HP PRN IV 10/04/24 10:00 Enoxaparin Sodium 30 mg DAILY SC 10/04/24 10:00 10/09/24 10:59 30 MG Vancomycin HCl 0 ml @ 0 mls/hr UD IV 10/04/24 10:15 Amlodipine Besylate 10 mg DAILY PO 10/05/24 10:00 10/09/24 12:29 10 MG Aspirin 81 mg DAILY PO 10/05/24 10:00 10/09/24 12:29 81 MG Clopidogrel Bisulfate 75 mg DAILY PO 10/05/24 10:00 10/09/24 12:30 75 MG Furosemide 20 mg DAILY PO 10/05/24 10:00 10/07/24 09:44 20 MG Metoprolol Tartrate 12.5 mg BID PO 10/04/24 22:00 10/08/24 21:02 12.5 MG Spironolactone 12.5 mg DAILY PO 10/05/24 10:00 10/09/24 12:30 12.5 MG Atorvastatin Calcium 40 mg HS PO 10/04/24 22:00 10/08/24 21:03 40 MG Cholecalciferol 1,000 unit DAILY PO 10/05/24 10:00 10/08/24 09:50 1,000 UNIT Isosorbide Mononitrate 20 mg DAILY PO 10/05/24 10:00 10/09/24 12:28 20 MG Patient Own Medication 1 cap BIDWM PO 10/04/24 18:00 10/09/24 18:24 1 CAP Finasteride 5 mg DAILY PO 10/05/24 10:00 10/08/24 09:50 5 MG Tamsulosin HCl 0.4 mg DAILY PO 10/05/24 10:00 10/09/24 12:29 0.4 MG Ceftriaxone Sodium 50 ml @ 100 mls/hr DAILY@09 IV 10/06/24 09:00 10/09/24 10:51 100 MLS/HR Hydralazine HCl 10 mg Q6HP PRN IV 10/05/24 13:30 10/07/24 17:27 10 MG Vancomycin HCl 100 ml @ 200 mls/hr DAILY@1700 IV 10/09/24 17:00 10/09/24 17:32 200 MLS/HR Laboratory Results Laboratory Tests 10/09/24 10:40 Chemistry Test 10/09/24 10:40 Albumin 3.0 g/dL (3.2-4.8) L Calcium Level 8.9 mg/dL (8.7-10.4) Total Protein 5.7 g/dL (5.7-8.2) Coagulation Test 10/09/24 10:40 Prothrombin Time 11.4 sec (9.3-11.8) Prothrombin Time INR 1.08 (0.9-1.15) Activated Partial Thromboplast Time 32.4 SEC (24.5-34.5) LFT Test 10/09/24 10:40 Alanine Aminotransferase (ALT) 11 U/L (7-40) Alkaline Phosphatase 127 U/L (46-116) H Aspartate Amino Transferase (AST) 14 U/L (13-40) Total Bilirubin 0.5 mg/dL (0.2-1.0) Urinalysis Test 10/03/24 14:25 Urine Color Light-brown (Yellow) Urine Clarity Turbid (Clear) H Urine pH 6.0 (5.0-9.0) Urine Specific [place] 1.015 (1.001-1.035) Urine Protein 3+ (Negative) H Urine Ketones Negative (Negative) Urine Blood 3+ /uL (Negative) H Urine Nitrite 2+ (Negative) H Urine Bilirubin Negative (Negative) Urine Urobilinogen Normal mg/dL (Negative) Urine Leukocyte Esterase 3+ /uL (Negative) Urine RBC 1017 /hpf (0 - 3) Urine WBC 228 /hpf (0 - 3) Urine WBC Clumps Present /hpf (None Seen) Urine Squamous Epithelial Cells Few /hpf (<5) Urine Bacteria Many /hpf (None Seen) H Urine Mucus Few (None Seen) Urine Glucose Normal mg/dL (Normal) Microbiology Microbiology Date/Time Source Procedure Growth Status 10/07/24 11:32 Blood Blood Culture - Preliminary Resulted 10/05/24 03:15 Nose MRSA Screen - Final Complete 10/03/24 14:35 Urine - [place] Urine Culture - Final Escherichia coli Complete Labs and/or images reviewed: Labs reviewed by me, Image(s) reviewed by me Assessment/Plan Assessment/Plan Covering Dr. Abreu: #Sepsis due to suspected infective endocarditis in the setting of Staphylococcus epidermidis bacteremia; the patient could not tolerate BRYAN; continue IV antibiotics; cardiology is following; continue monitoring #Staphylococcus epidermidis bacteremia; continue IV antibiotics; repeat blood cultures are negative so far; continue monitoring #ANALILIA on possible CKD; most likely vasomotor nephropathy in the setting sepsis; avoid nephrotoxic agents; continue monitoring #CAD with multi vessel disease s/p PTCA x1 ALIYAH to proximal to mid LAD; continue aspirin and statin along with clopidogrel; telemetry; cardiology is following (on Plavix and ASA) #Ischemic cardiomyopathy; not in exacerbation; cardiology is following; continue monitoring #Chronic HFrEF, NYHA class III; not in exacerbation; continue medical management; cardiology is following; continue monitoring #CVA with residual left-sided deficit; continue aspirin and statin; no new neurological deficits; continue monitoring #Hypertensive heart disease with systolic heart failure; continue antihypertensive medications as indicated; continue monitoring #Hyperlipidemia; continue statin; continue monitoring #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 Late Entry. This medical document was created using an electronic medical record system with computerized dictation system. Although this document has been carefully reviewed, there might still be some phonetic and typographical errors. These areas are purely typographical due to imperfections of the software programs, and do not reflect any compromise in the patient's medical care. Plan discussed with: Patient (As much as the patient could understand), Other (Nurse) My Orders Orders - RAMESH MENDIOLA MD Procedure Category Date Status Time Mechanical Soft Diet DIET 10/09/24 Transmitted Dinner Date of Service: Oct 09, 2024 Billing Provider: RAMESH MENDIOLA MD Common Visit Codes: [id number] INP/OBS CARE(HIGH) Secondary Visit Codes: [id number] CHNG SMOKING >10MIN (18 minutes), 88659- ADVANCED CARE PLAN 30 MINUTES (20 minutes) RAMESH MENDIOLA MD Oct 09, 2024 19:18
[2024-10-10] VITALS (8 sets, daily range): BP systolic 124–151; BP diastolic 55–75; PULSE 51–60; RESP 17–18; TEMP 97.4–98.9; O2SAT 96–100
[2024-10-10 06:15] LABS: Basophils # (auto) 0.1 10 ^3/uL (0-0.2); Basophils % (auto) 2.2 % (0.0-2.0); Eosinophils # (auto) 0.3 10 ^3/uL (0-0.8); Eosinophils % (auto) 7.5 % (0.0-7.0); Hematocrit 25.5 % (41.0-53.0); Hemoglobin 8.7 g/dL (13.5-17.5); Lymphocytes # (auto) 1.3 10 ^3/uL (0.4-5.4); Lymphocytes % (auto) 34.4 % (10.0-50.0); Mean Corpuscular Hgb Conc. 34.1 g/dL (32.0-36.0); Monocytes # (auto) 0.3 10 ^3/uL (0-1.3); Monocytes % (auto) 7.2 % (0.0-12.0); Neutrophils # (auto) 1.8 10 ^3/uL (1.6-8.6); Neutrophils % (auto) 48.7 % (37.0-80.0); Nucleated Red Blood Cells % 0.2 %; Platelet Count (auto) 371 10^3/uL (140-450); Red Blood Cells 2.81 10^6/uL (4.5-5.90); Red Cell Distribution Width 17.1 % (11.8-14.3); White Blood Cell 3.7 10^3/uL (4.4-10.8)
[2024-10-10 06:31] LABS: Alanine Aminotransferase 11 U/L (7-40); Alkaline Phosphatase 111 U/L (46-116); Anion Gap 6 (5-15); BUN/Creatinine Ratio 14.9 (10.0-20.0); Bilirubin, Total 0.3 mg/dL (0.2-1.0); Carbon Dioxide 23 mmol/L (20-31); Potassium 4.6 mmol/L (3.5-5.1); Sodium 137 mmol/L (136-145)
[2024-10-10 06:33] LABS: Albumin 2.8 g/dL (3.2-4.8); Aspartate Aminotransferase 13 U/L (13-40); Blood Urea Nitrogen 33 mg/dL (9-23); Chloride 108 mmol/L (98-107); Glucose 70 mg/dL (74-106); Total Protein 5.4 g/dL (5.7-8.2)
[2024-10-10] MEDS: MAGNESIUM SULFATE 1GM/100ML 100 ML IV ONE (12:11)
--- NOTE | 2024-10-10 20:48 | DVHPN2 ---
Subjective Confused; did not share any complaints Reviewed: Care Plan, H&P, Labs, Medications, Previous Orders, Radiology, Other (Consultations) Changes from previous H/P or p: No Changes Objective Vitals Vital Signs Date Time Temp Pulse Resp B/P (MAP) Pulse Ox O2 Delivery O2 Flow Rate FiO2 10/10/24 16:55 98.9 54 18 137/64 (88) 96 98.9 10/10/24 08:00 Room Air* 0 21 Intake/Output Intake and Output 10/10/24 07:00 Intake Total 1400 ml Output Total 450 ml Balance 950 ml Intake Oral 1350 ml IV Total 50 ml Output Urine Total 450 ml # Bowel Movements 1 General Appearance: Other (Confused) HEENT: Atraumatic Lungs: Clear to auscultation, Normal air movement Cardiovascular: Regular rate, Normal S1, Normal S2 Abdomen: Normal bowel sounds, Soft, No tenderness Genitourinary: Other (Bacon's catheter) Neuro: Normal speech, Cranial nerves 3-12 NL Psych/Mental Status: Other (Confused) Medications Current Medications Medications Dose Ordered Sig/Yue Route Start Time Stop Time Status Last Admin Dose Admin Ondansetron HCl 4 mg Q4HP PRN IV 10/04/24 10:00 Enoxaparin Sodium 30 mg DAILY SC 10/04/24 10:00 10/10/24 10:19 30 MG Vancomycin HCl 0 ml @ 0 mls/hr UD IV 10/04/24 10:15 Amlodipine Besylate 10 mg DAILY PO 10/05/24 10:00 10/10/24 10:22 10 MG Aspirin 81 mg DAILY PO 10/05/24 10:00 10/10/24 10:21 81 MG Clopidogrel Bisulfate 75 mg DAILY PO 10/05/24 10:00 10/10/24 10:23 75 MG Furosemide 20 mg DAILY PO 10/05/24 10:00 10/10/24 10:23 20 MG Metoprolol Tartrate 12.5 mg BID PO 10/04/24 22:00 10/10/24 12:11 12.5 MG Spironolactone 12.5 mg DAILY PO 10/05/24 10:00 10/10/24 10:21 12.5 MG Atorvastatin Calcium 40 mg HS PO 10/04/24 22:00 10/09/24 21:10 40 MG Cholecalciferol 1,000 unit DAILY PO 10/05/24 10:00 10/10/24 10:22 1,000 UNIT Isosorbide Mononitrate 20 mg DAILY PO 10/05/24 10:00 10/10/24 10:21 20 MG Patient Own Medication 1 cap BIDWM PO 10/04/24 18:00 10/10/24 17:41 1 CAP Finasteride 5 mg DAILY PO 10/05/24 10:00 10/10/24 10:23 5 MG Tamsulosin HCl 0.4 mg DAILY PO 10/05/24 10:00 10/10/24 10:23 0.4 MG Ceftriaxone Sodium 50 ml @ 100 mls/hr DAILY@09 IV 10/06/24 09:00 10/10/24 07:56 100 MLS/HR Hydralazine HCl 10 mg Q6HP PRN IV 10/05/24 13:30 10/07/24 17:27 10 MG Vancomycin HCl 100 ml @ 200 mls/hr DAILY@1700 IV 10/09/24 17:00 10/10/24 17:00 200 MLS/HR Laboratory Results Laboratory Tests 10/10/24 05:39 Chemistry Test 10/10/24 05:39 Albumin 2.8 g/dL (3.2-4.8) L Calcium Level 9.0 mg/dL (8.7-10.4) Total Protein 5.4 g/dL (5.7-8.2) L LFT Test 10/10/24 05:39 Alanine Aminotransferase (ALT) 11 U/L (7-40) Alkaline Phosphatase 111 U/L (46-116) Aspartate Amino Transferase (AST) 13 U/L (13-40) Total Bilirubin 0.3 mg/dL (0.2-1.0) Urinalysis Test 10/03/24 14:25 Urine Color Light-brown (Yellow) Urine Clarity Turbid (Clear) H Urine pH 6.0 (5.0-9.0) Urine Specific [place] 1.015 (1.001-1.035) Urine Protein 3+ (Negative) H Urine Ketones Negative (Negative) Urine Blood 3+ /uL (Negative) H Urine Nitrite 2+ (Negative) H Urine Bilirubin Negative (Negative) Urine Urobilinogen Normal mg/dL (Negative) Urine Leukocyte Esterase 3+ /uL (Negative) Urine RBC 1017 /hpf (0 - 3) Urine WBC 228 /hpf (0 - 3) Urine WBC Clumps Present /hpf (None Seen) Urine Squamous Epithelial Cells Few /hpf (<5) Urine Bacteria Many /hpf (None Seen) H Urine Mucus Few (None Seen) Urine Glucose Normal mg/dL (Normal) Microbiology Microbiology Date/Time Source Procedure Growth Status 10/09/24 07:50 Blood Blood Culture - Preliminary NO GROWTH AFTER 24 HOURS OF INCUBATION. Resulted 10/05/24 03:15 Nose MRSA Screen - Final Complete 10/03/24 14:35 Urine - [place] Urine Culture - Final Escherichia coli Complete Labs and/or images reviewed: Labs reviewed by me, Image(s) reviewed by me Assessment/Plan Assessment/Plan Covering Dr. Abreu: #Sepsis due to suspected infective endocarditis in the setting of Staphylococcus epidermidis bacteremia, and E coli UTI; the patient could not tolerate BRYAN; continue IV antibiotics; elevated ESR; cardiology is following; continue monitoring #Staphylococcus epidermidis bacteremia; continue IV antibiotics; repeat blood cultures are negative so far; continue monitoring #E coli UTI; continue IV ceftriaxone; reviewed urine culture; continue monitoring #ANALILIA on possible CKD; most likely vasomotor nephropathy in the setting sepsis; avoid nephrotoxic agents; continue monitoring #CAD with multi vessel disease s/p PTCA x1 ALIYAH to proximal to mid LAD; continue aspirin and statin along with clopidogrel; telemetry; cardiology is following (on Plavix and ASA) #Ischemic cardiomyopathy; not in exacerbation; cardiology is following; continue monitoring #Chronic HFrEF, NYHA class III; not in exacerbation; continue medical management; cardiology is following; continue monitoring #CVA with residual left-sided deficit; continue aspirin and statin; no new neurological deficits; continue monitoring #Hypertensive heart disease with systolic heart failure; continue antihypertensive medications as indicated; continue monitoring #Hyperlipidemia; continue statin; continue monitoring #Moderate to severe tricuspid valve regurgitation; reviewed echocardiogram; continue monitoring #Type II diabetes mellitus, insulin dependent; continue insulin sliding scale with hypoglycemia protocol; continue monitoring #Acute toxic/metabolic encephalopathy on the setting of dementia; reviewed head CT; active issues; continue monitoring #Tobacco use disorder; counseled on cessation for 18 minutes; continue monitoring #Severe protein calorie malnutrition; dietitian is following; continue monitoring #DVT prophylaxis; continue prophylactic dose of enoxaparin; continue monitoring #Normocytic anemia; most likely inflammatory due to multiple comorbidities; no signs/symptoms of active bleeding; continue monitoring #Leukopenia; unclear etiology; could be related to sepsis; continue monitoring # BPH with urinary retention status post Bacon's catheter; continue finasteride and tamsulosin; continue monitoring Late Entry. This medical document was created using an electronic medical record system with computerized dictation system. Although this document has been carefully reviewed, there might still be some phonetic and typographical errors. These areas are purely typographical due to imperfections of the software programs, and do not reflect any compromise in the patient's medical care. Plan discussed with: Patient (As much as he could understand), Other (Nurse) My Orders Orders - RAMESH MENDIOLA MD Procedure Category Date Status Time Basic Metabolic Panel LAB 10/11/24 Verified 04:00 Date of Service: Oct 10, 2024 Billing Provider: RAMESH MENDIOLA MD Common Visit Codes: [id number] INP/OBS CARE(HIGH) RAMESH MENDIOLA MD Oct 10, 2024 20:48
[2024-10-11] VITALS (8 sets, daily range): BP systolic 85–155; BP diastolic 63–88; PULSE 48–66; RESP 17–18; TEMP 97.4–98.5; O2SAT 94–100
--- NOTE | 2024-10-11 11:06 | DVHPN2 ---
Consult Progress Note Date Seen: Oct 11, 2024 Objective vital signs Vital Sign Date Time Temp Pulse Resp B/P (MAP) Pulse Ox O2 Delivery O2 Flow Rate FiO2 10/11/24 10:08 121/76 10/11/24 10:00 54 10/11/24 09:00 98.0 17 94 98.0 10/11/24 08:00 Room Air* 0 21 Total Intake and Output 10/10/24 10/10/24 10/11/24 15:00 23:00 07:00 Intake Total 50 ml 600 ml 800 ml Output Total 1000 ml 1050 ml Balance 50 ml -400 ml -250 ml medications Current Medications Medications Dose Ordered Sig/Yue Route Start Time Stop Time Status Last Admin Dose Admin Ondansetron HCl 4 mg Q4HP PRN IV 10/04/24 10:00 Enoxaparin Sodium 30 mg DAILY SC 10/04/24 10:00 10/11/24 10:06 30 MG Vancomycin HCl 0 ml @ 0 mls/hr UD IV 10/04/24 10:15 Amlodipine Besylate 10 mg DAILY PO 10/05/24 10:00 10/10/24 10:22 10 MG Aspirin 81 mg DAILY PO 10/05/24 10:00 10/11/24 10:05 81 MG Clopidogrel Bisulfate 75 mg DAILY PO 10/05/24 10:00 10/11/24 10:05 75 MG Furosemide 20 mg DAILY PO 10/05/24 10:00 10/11/24 10:08 20 MG Metoprolol Tartrate 12.5 mg BID PO 10/04/24 22:00 10/10/24 23:00 12.5 MG Spironolactone 12.5 mg DAILY PO 10/05/24 10:00 10/11/24 10:04 12.5 MG Atorvastatin Calcium 40 mg HS PO 10/04/24 22:00 10/09/24 21:10 40 MG Cholecalciferol 1,000 unit DAILY PO 10/05/24 10:00 10/11/24 10:05 1,000 UNIT Isosorbide Mononitrate 20 mg DAILY PO 10/05/24 10:00 10/10/24 10:21 20 MG Patient Own Medication 1 cap BIDWM PO 10/04/24 18:00 10/11/24 09:00 1 CAP Finasteride 5 mg DAILY PO 10/05/24 10:00 10/11/24 10:05 5 MG Tamsulosin HCl 0.4 mg DAILY PO 10/05/24 10:00 10/11/24 10:05 0.4 MG Ceftriaxone Sodium 50 ml @ 100 mls/hr DAILY@09 IV 10/06/24 09:00 10/11/24 09:50 100 MLS/HR Hydralazine HCl 10 mg Q6HP PRN IV 10/05/24 13:30 10/07/24 17:27 10 MG Vancomycin HCl 100 ml @ 200 mls/hr DAILY@1700 IV 10/09/24 17:00 10/10/24 17:00 200 MLS/HR laboratory and microbiology Laboratory Tests 10/10/24 05:39 Test 10/10/24 05:39 Range/Units Serum Glucose 70 L 74-106 mg/dL Problem List/Assessment/Plan Problem List/Assessment/Plan Sepsis rule out infective endocarditis CAD with multi vessel disease s/p PTCA x1 ALIYAH to proximal to mid LAD (on Plavix and ASA) Ischemic cardiomyopathy with LVEF of 30% Chronic compensated HFrEF, NYHA class III CVA with residual left-sided deficit Pulmonary hypertension, severe Tricuspid valve regurgitation, severe Hypertension Hyperlipidemia IDDM Dementia Tobacco use Plan/Recommendation (Dr. Cruz) The patient was initially scheduled for a transthoracic echocardiogram to rule out infective endocarditis was brought down to the Route Service Manager on 10/09/2024, unfortunately BRYAN attempt was unsuccessful given the patient's refusal and uncooperative behavior. Becerra Criteria for Infective Endocarditis is rejected. Given echocardiogram from 10/11/23 revealing an EF 30%, RVSP 60 mmHg, and [id number] tricuspid valve regurgitation we recommend continuation of guideline directed medical therapy for CHF as renal function permits. Continue dual-antiplatelet therapy and lipid-lowering agent. Follow-up with primary library attendant within 1-2 weeks post-discharge. There is no further cardiac work- up indicated at this time. Please call if in need to reconsult. Thank you for allowing us to care for this patient. This medical document was created using an electronic medical record system with voice recognition software and computerized dictation system. Although this document has been carefully reviewed, there might still be some phonetic and typographical errors. Occasional wrong-word or ``sound-alike substitutions may have occurred due to the inherent limitations of voice recognition software. These areas are purely typographical due to imperfections of the software programs and do not reflect any compromise in the patient's medical care. Please read the chart carefully and recognize, using context, where these substitutions have occurred. Plan discussed with: Other Dietary Evaluation Review Comments: Encourage and monitor PO intakes to meet minmium 75% of his needs Expected Outcomes/Goals: avoid weightloss Date of Service: Oct 11, 2024 Billing Provider: JOEY CRUZ MD Cardiology Common Codes: [id number] [facility] Oct 11, 2024 11:06
[2024-10-11 13:28] LABS: Potassium 4.4 mmol/L (3.5-5.1); Sodium 138 mmol/L (136-145)
[2024-10-11 13:29] LABS: Anion Gap 6 (5-15); Carbon Dioxide 24 mmol/L (20-31)
[2024-10-11 13:30] LABS: Calcium 8.8 mg/dL (8.7-10.4)
[2024-10-11 13:34] LABS: BUN/Creatinine Ratio 15.2 (10.0-20.0)
[2024-10-11 13:47] LABS: Basophils # (auto) 0.1 10 ^3/uL (0-0.2); Basophils % (auto) 3.8 % (0.0-2.0); Blood Urea Nitrogen 32 mg/dL (9-23); Chloride 108 mmol/L (98-107); Eosinophils # (auto) 0.2 10 ^3/uL (0-0.8); Eosinophils % (auto) 5.3 % (0.0-7.0); Glucose 107 mg/dL (74-106); Hematocrit 26.5 % (41.0-53.0); Hemoglobin 9.1 g/dL (13.5-17.5); Lymphocytes % (auto) 31.2 % (10.0-50.0); Mean Corpuscular Hemoglobin 32.2 pg (28.0-32.0); Mean Corpuscular Hgb Conc. 34.4 g/dL (32.0-36.0); Mean Corpuscular Volume 93.8 fL (80.0-100.0); Monocytes # (auto) 0.2 10 ^3/uL (0-1.3); Monocytes % (auto) 5.7 % (0.0-12.0); Neutrophils # (auto) 1.7 10 ^3/uL (1.6-8.6); Platelet Count (auto) 420 10^3/uL (140-450); Red Blood Cells 2.82 10^6/uL (4.5-5.90); Red Cell Distribution Width 17.5 % (11.8-14.3); White Blood Cell 3.1 10^3/uL (4.4-10.8)
--- NOTE | 2024-10-11 16:57 | DVHPN2 ---
Subjective Confused; did not share any complaints Reviewed: Care Plan, H&P, Labs, Medications, Previous Orders, Radiology, Other (Consultations) Changes from previous H/P or p: No Changes Objective Vitals Vital Signs Date Time Temp Pulse Resp B/P (MAP) Pulse Ox O2 Delivery O2 Flow Rate FiO2 10/11/24 13:00 98.2 66 17 151/88 (109) 98 98.2 10/11/24 08:00 Room Air* 0 21 Intake/Output Intake and Output 10/11/24 06:59 Intake Total 1450 ml Output Total 2050 ml Balance -600 ml Intake Oral 1400 ml IV Total 50 ml Output Urine Total 2050 ml General Appearance: Other (Confused) HEENT: Atraumatic Lungs: Clear to auscultation, Normal air movement Cardiovascular: Regular rate, Normal S1, Normal S2 Abdomen: Normal bowel sounds, Soft, No tenderness Genitourinary: Other (Bacon's catheter) Neuro: Normal speech, Cranial nerves 3-12 NL Psych/Mental Status: Other (Confused) Medications Current Medications Medications Dose Ordered Sig/Yue Route Start Time Stop Time Status Last Admin Dose Admin Ondansetron HCl 4 mg Q4HP PRN IV 10/04/24 10:00 Enoxaparin Sodium 30 mg DAILY SC 10/04/24 10:00 10/11/24 10:06 30 MG Vancomycin HCl 0 ml @ 0 mls/hr UD IV 10/04/24 10:15 Amlodipine Besylate 10 mg DAILY PO 10/05/24 10:00 10/10/24 10:22 10 MG Aspirin 81 mg DAILY PO 10/05/24 10:00 10/11/24 10:05 81 MG Clopidogrel Bisulfate 75 mg DAILY PO 10/05/24 10:00 10/11/24 10:05 75 MG Furosemide 20 mg DAILY PO 10/05/24 10:00 10/11/24 10:08 20 MG Metoprolol Tartrate 12.5 mg BID PO 10/04/24 22:00 10/10/24 23:00 12.5 MG Spironolactone 12.5 mg DAILY PO 10/05/24 10:00 10/11/24 10:04 12.5 MG Atorvastatin Calcium 40 mg HS PO 10/04/24 22:00 10/09/24 21:10 40 MG Cholecalciferol 1,000 unit DAILY PO 10/05/24 10:00 10/11/24 10:05 1,000 UNIT Isosorbide Mononitrate 20 mg DAILY PO 10/05/24 10:00 10/10/24 10:21 20 MG Patient Own Medication 1 cap BIDWM PO 10/04/24 18:00 10/11/24 09:00 1 CAP Finasteride 5 mg DAILY PO 10/05/24 10:00 10/11/24 10:05 5 MG Tamsulosin HCl 0.4 mg DAILY PO 10/05/24 10:00 10/11/24 10:05 0.4 MG Ceftriaxone Sodium 50 ml @ 100 mls/hr DAILY@09 IV 10/06/24 09:00 10/11/24 09:50 100 MLS/HR Hydralazine HCl 10 mg Q6HP PRN IV 10/05/24 13:30 10/07/24 17:27 10 MG Vancomycin HCl 100 ml @ 200 mls/hr DAILY@1700 IV 10/09/24 17:00 10/10/24 17:00 200 MLS/HR Laboratory Results Laboratory Tests 10/11/24 13:05 Chemistry Test 10/11/24 13:05 Calcium Level 8.8 mg/dL (8.7-10.4) Urinalysis Test 10/03/24 14:25 Urine Color Light-brown (Yellow) Urine Clarity Turbid (Clear) H Urine pH 6.0 (5.0-9.0) Urine Specific [place] 1.015 (1.001-1.035) Urine Protein 3+ (Negative) H Urine Ketones Negative (Negative) Urine Blood 3+ /uL (Negative) H Urine Nitrite 2+ (Negative) H Urine Bilirubin Negative (Negative) Urine Urobilinogen Normal mg/dL (Negative) Urine Leukocyte Esterase 3+ /uL (Negative) Urine RBC 1017 /hpf (0 - 3) Urine WBC 228 /hpf (0 - 3) Urine WBC Clumps Present /hpf (None Seen) Urine Squamous Epithelial Cells Few /hpf (<5) Urine Bacteria Many /hpf (None Seen) H Urine Mucus Few (None Seen) Urine Glucose Normal mg/dL (Normal) Microbiology Microbiology Date/Time Source Procedure Growth Status 10/09/24 07:50 Blood Blood Culture - Preliminary NO GROWTH AFTER 48 HOURS OF INCUBATION. Resulted 10/05/24 03:15 Nose MRSA Screen - Final Complete 10/03/24 14:35 Urine - [place] Urine Culture - Final Escherichia coli Complete Labs and/or images reviewed: Labs reviewed by me, Image(s) reviewed by me Assessment/Plan Assessment/Plan Covering Dr. Abreu: #Sepsis due to suspected infective endocarditis in the setting of Staphylococcus epidermidis and Staphylococcus capitis subspecies urealitycus bacteremia, and E coli UTI; the patient could not tolerate BRYAN (cardiology signed off); continue IV antibiotics; elevated ESR; cardiology is following; continue monitoring #Staphylococcus epidermidis and Staphylococcus capitis subspecies urealitycus bacteremia; continue IV antibiotics; repeat blood cultures are negative so far; continue monitoring #E coli UTI; continue IV ceftriaxone; reviewed urine culture; continue monitoring #ANALILIA on possible CKD; most likely vasomotor nephropathy in the setting sepsis; avoid nephrotoxic agents; continue monitoring #CAD with multi vessel disease s/p PTCA x1 ALIYAH to proximal to mid LAD; continue aspirin and statin along with clopidogrel; telemetry; cardiology is following (on Plavix and ASA) #Ischemic cardiomyopathy; not in exacerbation; cardiology is following; continue monitoring #Chronic HFrEF, NYHA class III; not in exacerbation; continue medical management; cardiology is following; continue monitoring #CVA with residual left-sided deficit; continue aspirin and statin; no new neurological deficits; continue monitoring #Hypertensive heart disease with systolic heart failure; continue antihypertensive medications as indicated; continue monitoring #Hyperlipidemia; continue statin; continue monitoring #Moderate to severe tricuspid valve regurgitation; reviewed echocardiogram; continue monitoring #Type II diabetes mellitus, insulin dependent; continue insulin sliding scale with hypoglycemia protocol; continue monitoring #Acute toxic/metabolic encephalopathy on the setting of dementia; reviewed head CT; active issues; continue monitoring #Tobacco use disorder; counseled on cessation for 18 minutes; continue monitoring #Severe protein calorie malnutrition; dietitian is following; continue monitoring #DVT prophylaxis; continue prophylactic dose of enoxaparin; continue monitoring #Normocytic anemia; most likely inflammatory due to multiple comorbidities; no signs/symptoms of active bleeding; continue monitoring #Leukopenia; unclear etiology; could be related to sepsis; continue monitoring #BPH with urinary retention status post Bacon's catheter; continue finasteride and tamsulosin; continue monitoring Consulted Supervisor Compounding And Finishing for discharge planning. Late Entry. This medical document was created using an electronic medical record system with computerized dictation system. Although this document has been carefully reviewed, there might still be some phonetic and typographical errors. These areas are purely typographical due to imperfections of the software programs, and do not reflect any compromise in the patient's medical care. Plan discussed with: Patient (As much as he could understand), Other (Nurse) Date of Service: Oct 11, 2024 Billing Provider: RAMESH MENDIOLA MD Common Visit Codes: [id number] INP/OBS CARE(HIGH) RAMESH MENDIOLA MD Oct 11, 2024 16:57
[2024-10-12] VITALS (8 sets, daily range): BP systolic 113–161; BP diastolic 52–78; PULSE 49–75; RESP 16–20; TEMP 97.6–98.6; O2SAT 94–100
[2024-10-12 06:59] LABS: Alanine Aminotransferase 13 U/L (7-40); Anion Gap 8 (5-15); BUN/Creatinine Ratio 18.6 (10.0-20.0); Carbon Dioxide 22 mmol/L (20-31); Sodium 139 mmol/L (136-145)
[2024-10-12 07:01] LABS: Aspartate Aminotransferase 18 U/L (13-40)
[2024-10-12 07:05] LABS: Alkaline Phosphatase 117 U/L (46-116); Blood Urea Nitrogen 41 mg/dL (9-23); Calcium 8.6 mg/dL (8.7-10.4); Chloride 109 mmol/L (98-107); Glucose 68 mg/dL (74-106); Potassium 5.2 mmol/L (3.5-5.1)
[2024-10-12 07:06] LABS: Albumin 2.6 g/dL (3.2-4.8); Bilirubin, Total 0.2 mg/dL (0.2-1.0)
[2024-10-12 07:48] LABS: Basophils # (auto) 0.1 10 ^3/uL (0-0.2); Basophils % (auto) 1.2 % (0.0-2.0); Eosinophils # (auto) 0.1 10 ^3/uL (0-0.8); Hematocrit 24.7 % (41.0-53.0); Hemoglobin 8.4 g/dL (13.5-17.5); Lymphocytes # (auto) 1.8 10 ^3/uL (0.4-5.4); Lymphocytes % (auto) 39.6 % (10.0-50.0); Mean Corpuscular Hemoglobin 31.3 pg (28.0-32.0); Mean Corpuscular Hgb Conc. 33.9 g/dL (32.0-36.0); Mean Corpuscular Volume 92.3 fL (80.0-100.0); Monocytes # (auto) 0.4 10 ^3/uL (0-1.3); Monocytes % (auto) 8.5 % (0.0-12.0); Neutrophils # (auto) 2.1 10 ^3/uL (1.6-8.6); Neutrophils % (auto) 47.7 % (37.0-80.0); Nucleated Red Blood Cells % 0.2 %; Platelet Count (auto) 391 10^3/uL (140-450); Red Blood Cells 2.68 10^6/uL (4.5-5.90); White Blood Cell 4.4 10^3/uL (4.4-10.8)
--- NOTE | 2024-10-12 09:35 | DVHPN2 ---
Reviewed: Care Plan, H&P, Labs, Medications, Previous Orders, Radiology, Other (Consultations) Changes from previous H/P or p: No Changes Objective Vitals Vital Signs Date Time Temp Pulse Resp B/P (MAP) Pulse Ox O2 Delivery O2 Flow Rate FiO2 10/12/24 05:00 98.5 53 17 142/71 (94) 100 98.5 10/11/24 20:00 Room Air* 0 21 Intake/Output Intake and Output 10/12/24 07:00 Intake Total 1500 ml Output Total 1950 ml Balance -450 ml Intake Oral 950 ml IV Total 50 ml Tube Feeding 500 ml Output Urine Total 1950 ml # Bowel Movements 1 General Appearance: Other (Confused) HEENT: Atraumatic Lungs: Clear to auscultation, Normal air movement Cardiovascular: Regular rate, Normal S1, Normal S2 Abdomen: Normal bowel sounds, Soft, No tenderness Genitourinary: Other (Bacon's catheter) Neuro: Normal speech, Cranial nerves 3-12 NL Psych/Mental Status: Other (Confused) Medications Current Medications Medications Dose Ordered Sig/Yue Route Start Time Stop Time Status Last Admin Dose Admin Ondansetron HCl 4 mg Q4HP PRN IV 10/04/24 10:00 Enoxaparin Sodium 30 mg DAILY SC 10/04/24 10:00 10/11/24 10:06 30 MG Vancomycin HCl 0 ml @ 0 mls/hr UD IV 10/04/24 10:15 Amlodipine Besylate 10 mg DAILY PO 10/05/24 10:00 10/10/24 10:22 10 MG Aspirin 81 mg DAILY PO 10/05/24 10:00 10/11/24 10:05 81 MG Clopidogrel Bisulfate 75 mg DAILY PO 10/05/24 10:00 10/11/24 10:05 75 MG Furosemide 20 mg DAILY PO 10/05/24 10:00 10/11/24 10:08 20 MG Metoprolol Tartrate 12.5 mg BID PO 10/04/24 22:00 10/10/24 23:00 12.5 MG Spironolactone 12.5 mg DAILY PO 10/05/24 10:00 10/11/24 10:04 12.5 MG Atorvastatin Calcium 40 mg HS PO 10/04/24 22:00 10/09/24 21:10 40 MG Cholecalciferol 1,000 unit DAILY PO 10/05/24 10:00 10/11/24 10:05 1,000 UNIT Isosorbide Mononitrate 20 mg DAILY PO 10/05/24 10:00 10/10/24 10:21 20 MG Patient Own Medication 1 cap BIDWM PO 10/04/24 18:00 10/11/24 18:20 1 CAP Finasteride 5 mg DAILY PO 10/05/24 10:00 10/11/24 10:05 5 MG Tamsulosin HCl 0.4 mg DAILY PO 10/05/24 10:00 10/11/24 10:05 0.4 MG Ceftriaxone Sodium 50 ml @ 100 mls/hr DAILY@09 IV 10/06/24 09:00 10/11/24 09:50 100 MLS/HR Hydralazine HCl 10 mg Q6HP PRN IV 10/05/24 13:30 10/07/24 17:27 10 MG Vancomycin HCl 100 ml @ 200 mls/hr DAILY@1700 IV 10/09/24 17:00 10/11/24 17:00 200 MLS/HR Laboratory Results Laboratory Tests 10/12/24 05:00 Chemistry Test 10/11/24 13:05 10/12/24 05:00 Calcium Level 8.8 mg/dL (8.7-10.4) 8.6 mg/dL (8.7-10.4) L Albumin 2.6 g/dL (3.2-4.8) L Total Protein 5.0 g/dL (5.7-8.2) L LFT Test 10/12/24 05:00 Alanine Aminotransferase (ALT) 13 U/L (7-40) Alkaline Phosphatase 117 U/L (46-116) H Aspartate Amino Transferase (AST) 18 U/L (13-40) Total Bilirubin 0.2 mg/dL (0.2-1.0) Urinalysis Test 10/03/24 14:25 Urine Color Light-brown (Yellow) Urine Clarity Turbid (Clear) H Urine pH 6.0 (5.0-9.0) Urine Specific [place] 1.015 (1.001-1.035) Urine Protein 3+ (Negative) H Urine Ketones Negative (Negative) Urine Blood 3+ /uL (Negative) H Urine Nitrite 2+ (Negative) H Urine Bilirubin Negative (Negative) Urine Urobilinogen Normal mg/dL (Negative) Urine Leukocyte Esterase 3+ /uL (Negative) Urine RBC 1017 /hpf (0 - 3) Urine WBC 228 /hpf (0 - 3) Urine WBC Clumps Present /hpf (None Seen) Urine Squamous Epithelial Cells Few /hpf (<5) Urine Bacteria Many /hpf (None Seen) H Urine Mucus Few (None Seen) Urine Glucose Normal mg/dL (Normal) Microbiology Microbiology Date/Time Source Procedure Growth Status 10/09/24 07:50 Blood Blood Culture - Preliminary NO GROWTH AFTER 72 HOURS OF INCUBATION. Resulted 10/05/24 03:15 Nose MRSA Screen - Final Complete 10/03/24 14:35 Urine - [place] Urine Culture - Final Escherichia coli Complete Labs and/or images reviewed: Labs reviewed by me, Image(s) reviewed by me Assessment/Plan Assessment/Plan #Sepsis due to suspected infective endocarditis in the setting of Staphylococcus epidermidis and Staphylococcus capitis subspecies urealitycus bacteremia, and E coli UTI; the patient could not tolerate BRYAN (cardiology signed off); continue IV antibiotics; elevated ESR; cardiology is following; continue monitoring #Staphylococcus epidermidis and Staphylococcus capitis subspecies urealitycus bacteremia; continue IV antibiotics; repeat blood cultures are negative so far; continue monitoring #E coli UTI; continue IV ceftriaxone; reviewed urine culture; continue monitoring #ANALILIA on possible CKD; most likely vasomotor nephropathy in the setting sepsis; avoid nephrotoxic agents; continue monitoring #CAD with multi vessel disease s/p PTCA x1 ALIYAH to proximal to mid LAD; continue aspirin and statin along with clopidogrel; telemetry; cardiology is following (on Plavix and ASA) #Ischemic cardiomyopathy; not in exacerbation; cardiology is following; continue monitoring #Chronic HFrEF, NYHA class III; not in exacerbation; continue medical management; cardiology is following; continue monitoring #CVA with residual left-sided deficit; continue aspirin and statin; no new neurological deficits; continue monitoring #Hypertensive heart disease with systolic heart failure; continue antihypertensive medications as indicated; continue monitoring #Hyperlipidemia; continue statin; continue monitoring #Moderate to severe tricuspid valve regurgitation; reviewed echocardiogram; continue monitoring #Type II diabetes mellitus, insulin dependent; continue insulin sliding scale with hypoglycemia protocol; continue monitoring #Acute toxic/metabolic encephalopathy on the setting of dementia; reviewed head CT; active issues; continue monitoring #Tobacco use disorder; counseled on cessation for 22 minutes; continue monitoring #Severe protein calorie malnutrition; dietitian is following; continue monitoring #DVT prophylaxis; continue prophylactic dose of enoxaparin; continue monitoring #Normocytic anemia; most likely inflammatory due to multiple comorbidities; no signs/symptoms of active bleeding; continue monitoring #Leukopenia; unclear etiology; could be related to sepsis; continue monitoring #BPH with urinary retention status post Bacon's catheter; continue finasteride and tamsulosin; continue monitoring Patient came from [facility] Patient belongs to [place] Patient was not on hospice since February 2024 per patient's daughter Marcio [phone] Plan discussed with: Patient Date of Service: Oct 12, 2024 Billing Provider: SHUKRI ROCHA MD Common Visit Codes: [id number] INP/OBS CARE(HIGH) SHUKRI ROCHA MD Oct 12, 2024 09:35
--- NOTE | 2024-10-12 10:07 | CONS ---
Pharmacy Clinical Information: CQM HF. Patient is currently on metoprolol tartrate (non-EBBB), however, pat ients HR seems to be on the lower side and there have been several instances where the BB was held due to low HR. Consider switching to succinate once patient's HR is stable. BRETT PEDERSON PHARMACIST Oct 12, 2024 10:07
[2024-10-13] VITALS (7 sets, daily range): BP systolic 143–153; BP diastolic 50–81; PULSE 42–69; RESP 14–19; TEMP 97.5–98.4; O2SAT 95–100
--- NOTE | 2024-10-13 11:08 | DVHPN2 ---
Reviewed: Care Plan, H&P, Labs, Medications, Previous Orders, Radiology, Other (Consultations) Changes from previous H/P or p: No Changes Objective Vitals Vital Signs Date Time Temp Pulse Resp B/P (MAP) Pulse Ox O2 Delivery O2 Flow Rate FiO2 10/13/24 10:22 60 144/81 10/13/24 08:38 98.4 16 97 98.4 10/12/24 20:00 Room Air* 0 21 Intake/Output Intake and Output 10/13/24 07:00 Intake Total 300 ml Output Total 1100 ml Balance -800 ml Intake Oral 150 ml IV Total 150 ml Output Urine Total 1100 ml General Appearance: Other (Confused) HEENT: Atraumatic Lungs: Clear to auscultation, Normal air movement Cardiovascular: Regular rate, Normal S1, Normal S2 Abdomen: Normal bowel sounds, Soft, No tenderness Genitourinary: Other (Bacon's catheter) Neuro: Normal speech, Cranial nerves 3-12 NL Psych/Mental Status: Other (Confused) Medications Current Medications Medications Dose Ordered Sig/Yue Route Start Time Stop Time Status Last Admin Dose Admin Ondansetron HCl 4 mg Q4HP PRN IV 10/04/24 10:00 Enoxaparin Sodium 30 mg DAILY SC 10/04/24 10:00 10/13/24 10:23 30 MG Vancomycin HCl 0 ml @ 0 mls/hr UD IV 10/04/24 10:15 Amlodipine Besylate 10 mg DAILY PO 10/05/24 10:00 10/13/24 10:20 10 MG Aspirin 81 mg DAILY PO 10/05/24 10:00 10/13/24 10:21 81 MG Clopidogrel Bisulfate 75 mg DAILY PO 10/05/24 10:00 10/13/24 10:22 75 MG Furosemide 20 mg DAILY PO 10/05/24 10:00 10/13/24 10:22 20 MG Metoprolol Tartrate 12.5 mg BID PO 10/04/24 22:00 10/13/24 10:22 12.5 MG Spironolactone 12.5 mg DAILY PO 10/05/24 10:00 10/13/24 10:19 12.5 MG Atorvastatin Calcium 40 mg HS PO 10/04/24 22:00 10/12/24 21:43 40 MG Cholecalciferol 1,000 unit DAILY PO 10/05/24 10:00 10/13/24 10:21 1,000 UNIT Isosorbide Mononitrate 20 mg DAILY PO 10/05/24 10:00 10/13/24 10:20 20 MG Patient Own Medication 1 cap BIDWM PO 10/04/24 18:00 10/11/24 18:20 1 CAP Finasteride 5 mg DAILY PO 10/05/24 10:00 10/13/24 10:21 5 MG Tamsulosin HCl 0.4 mg DAILY PO 10/05/24 10:00 10/13/24 10:20 0.4 MG Ceftriaxone Sodium 50 ml @ 100 mls/hr DAILY@09 IV 10/06/24 09:00 10/13/24 07:53 100 MLS/HR Hydralazine HCl 10 mg Q6HP PRN IV 10/05/24 13:30 10/12/24 20:55 10 MG Vancomycin HCl 100 ml @ 200 mls/hr DAILY@1700 IV 10/09/24 17:00 10/12/24 17:29 200 MLS/HR Laboratory Results Laboratory Tests 10/12/24 05:00 Urinalysis Test 10/03/24 14:25 Urine Color Light-brown (Yellow) Urine Clarity Turbid (Clear) H Urine pH 6.0 (5.0-9.0) Urine Specific [place] 1.015 (1.001-1.035) Urine Protein 3+ (Negative) H Urine Ketones Negative (Negative) Urine Blood 3+ /uL (Negative) H Urine Nitrite 2+ (Negative) H Urine Bilirubin Negative (Negative) Urine Urobilinogen Normal mg/dL (Negative) Urine Leukocyte Esterase 3+ /uL (Negative) Urine RBC 1017 /hpf (0 - 3) Urine WBC 228 /hpf (0 - 3) Urine WBC Clumps Present /hpf (None Seen) Urine Squamous Epithelial Cells Few /hpf (<5) Urine Bacteria Many /hpf (None Seen) H Urine Mucus Few (None Seen) Urine Glucose Normal mg/dL (Normal) Microbiology Microbiology Date/Time Source Procedure Growth Status 10/09/24 07:50 Blood Blood Culture - Preliminary NO GROWTH AFTER 72 HOURS OF INCUBATION. Resulted 10/05/24 03:15 Nose MRSA Screen - Final Complete 10/03/24 14:35 Urine - [place] Urine Culture - Final Escherichia coli Complete Labs and/or images reviewed: Labs reviewed by me, Image(s) reviewed by me Assessment/Plan Assessment/Plan #Sepsis due to suspected infective endocarditis in the setting of Staphylococcus epidermidis and Staphylococcus capitis subspecies urealitycus bacteremia, and E coli UTI; the patient could not tolerate BRYAN (cardiology signed off); continue IV antibiotics; elevated ESR; cardiology is following; continue monitoring #Staphylococcus epidermidis and Staphylococcus capitis subspecies urealitycus bacteremia; continue IV antibiotics; repeat blood cultures are negative so far; continue monitoring #E coli UTI; continue IV ceftriaxone; reviewed urine culture; continue monitoring #ANALILIA on possible CKD; most likely vasomotor nephropathy in the setting sepsis; avoid nephrotoxic agents; continue monitoring #CAD with multi vessel disease s/p PTCA x1 ALIYAH to proximal to mid LAD; continue aspirin and statin along with clopidogrel; telemetry; cardiology is following (on Plavix and ASA) #Ischemic cardiomyopathy; not in exacerbation; cardiology is following; continue monitoring #Chronic HFrEF, NYHA class III; not in exacerbation; continue medical management; cardiology is following; continue monitoring #CVA with residual left-sided deficit; continue aspirin and statin; no new neurological deficits; continue monitoring #Hypertensive heart disease with systolic heart failure; continue antihypertensive medications as indicated; continue monitoring #Hyperlipidemia; continue statin; continue monitoring #Moderate to severe tricuspid valve regurgitation; reviewed echocardiogram; continue monitoring #Type II diabetes mellitus, insulin dependent; continue insulin sliding scale with hypoglycemia protocol; continue monitoring #Acute toxic/metabolic encephalopathy on the setting of dementia; reviewed head CT; active issues; continue monitoring #Tobacco use disorder; counseled on cessation for 22 minutes; continue monitoring #Severe protein calorie malnutrition; dietitian is following; continue monitoring #DVT prophylaxis; continue prophylactic dose of enoxaparin; continue monitoring #Normocytic anemia; most likely inflammatory due to multiple comorbidities; no signs/symptoms of active bleeding; continue monitoring #Leukopenia; unclear etiology; could be related to sepsis; continue monitoring #BPH with urinary retention status post Bacon's catheter; continue finasteride and tamsulosin; continue monitoring Patient came from [facility] Patient belongs to [place] Patient was not on hospice since February 2024 per patient's daughter Marcio [phone] Spoke With the patient's daughter Marcio on the phone and she is requesting patient to be discharged on p.o. antibiotics back to [facility] living facility MARCEL corea at bedside Plan discussed with: Patient Date of Service: Oct 13, 2024 Billing Provider: SHUKRI ROCHA MD Common Visit Codes: [id number] INP/OBS CARE(HIGH) SHUKRI ROCHA MD Oct 13, 2024 11:08
--- NOTE | 2024-10-13 11:13 | DVHDS2 ---
Discharge Summary Date of Admission Oct 04, 2024 at 09:55 Date of Discharge: Oct 13, 2024 Admitting Diagnosis Altered mental status and confusion Wounds: None Labs/Diagnostic Data: Laboratory Results Test 10/12/24 05:00 10/10/24 16:26 10/09/24 10:40 10/08/24 06:29 White Blood Count 4.4 10^3/uL (4.4-10.8) Red Blood Count 2.68 10^6/uL (4.5-5.90) Hemoglobin 8.4 g/dL (13.5-17.5) Hematocrit 24.7 % (41.0-53.0) Mean Corpuscular Volume 92.3 fL (80.0-100.0) Mean Corpuscular Hemoglobin 31.3 pg (28.0-32.0) Mean Corpuscular Hemoglobin Concent 33.9 g/dL (32.0-36.0) Red Cell Distribution Width 17.0 % (11.8-14.3) Platelet Count 391 10^3/uL (140-450) Mean Platelet Volume 7.1 fL (6.9-10.8) Neutrophils (%) (Auto) 47.7 % (37.0-80.0) Lymphocytes (%) (Auto) 39.6 % (10.0-50.0) Monocytes (%) (Auto) 8.5 % (0.0-12.0) Eosinophils (%) (Auto) 3.0 % (0.0-7.0) Basophils (%) (Auto) 1.2 % (0.0-2.0) Neutrophils # (Auto) 2.1 10 ^3/uL (1.6-8.6) Lymphocytes # (Auto) 1.8 10 ^3/uL (0.4-5.4) Monocytes # (Auto) 0.4 10 ^3/uL (0-1.3) Eosinophils # (Auto) 0.1 10 ^3/uL (0-0.8) Basophils # (Auto) 0.1 10 ^3/uL (0-0.2) Nucleated Red Blood Cells 0.2 % Sodium Level 139 mmol/L (136-145) Potassium Level 5.2 mmol/L (3.5-5.1) Chloride Level 109 mmol/L (98-107) Carbon Dioxide Level 22 mmol/L (20-31) Anion Gap 8 (5-15) Blood Urea Nitrogen 41 mg/dL (9-23) Creatinine 2.20 mg/dL (0.700-1.30) Glomerular Filtration Rate Calc 30 mL/min (>90) BUN/Creatinine Ratio 18.6 (10.0-20.0) Serum Glucose 68 mg/dL (74-106) Calcium Level 8.6 mg/dL (8.7-10.4) Total Bilirubin 0.2 mg/dL (0.2-1.0) Aspartate Amino Transferase (AST) 18 U/L (13-40) Alanine Aminotransferase (ALT) 13 U/L (7-40) Alkaline Phosphatase 117 U/L (46-116) Total Protein 5.0 g/dL (5.7-8.2) Albumin 2.6 g/dL (3.2-4.8) Vancomycin Level Trough 15.4 ug/mL (5-10) Erythrocyte Sedimentation Rate 35 mm/hr (0-20) Prothrombin Time 11.4 sec (9.3-11.8) Prothrombin Time INR 1.08 (0.9-1.15) Activated Partial Thromboplast Time 32.4 SEC (24.5-34.5) C-Reactive Protein High Sensitivity 1.05 mg/dL (<1.0) Random Vancomycin Level 15.1 ug/mL (5-10) Magnesium Level 1.8 mg/dL (1.6-2.6) Test 10/07/24 11:32 10/04/24 02:52 10/03/24 21:25 10/03/24 19:35 Ammonia 25 umol/L (11-32) Vitamin B12 Level 1906 pg/mL (211-911) Folic Acid 7.45 ng/mL (>5.38) Thyroid Stimulating Hormone (TSH) 1.31 uIU/mL (0.55-4.78) Rapid Plasma Reagin Non reactive (Non Reactive) SARS-CoV-2 Antigen (Rapid) Negative (NEGATIVE) Troponin I High Sensitivity 23 ng/L (</=54) Lactic Acid Level 0.8 mmol/L (0.4-2.0) Test 10/03/24 14:25 Urine Color Light-brown (Yellow) Urine Clarity Turbid (Clear) Urine pH 6.0 (5.0-9.0) Urine Specific [place] 1.015 (1.001-1.035) Urine Protein 3+ (Negative) Urine Ketones Negative (Negative) Urine Blood 3+ /uL (Negative) Urine Nitrite 2+ (Negative) Urine Bilirubin Negative (Negative) Urine Urobilinogen Normal mg/dL (Negative) Urine Leukocyte Esterase 3+ /uL (Negative) Urine RBC 1017 /hpf (0 - 3) Urine WBC 228 /hpf (0 - 3) Urine WBC Clumps Present /hpf (None Seen) Urine Squamous Epithelial Cells Few /hpf (<5) Urine Bacteria Many /hpf (None Seen) Urine Mucus Few (None Seen) Urine Glucose Normal mg/dL (Normal) Other Laboratory Tests 10/12/24 05:00 Brief Hx & Hospital Course: 83-year-old male brought in from assisted living facility for generalized weakness and confusion found to have sepsis secondary to bacteremia due to Staph epidermidis and Staph capitis treated with vancomycin. Patient could not tolerate BRYAN rule out endocarditis and Cardiology signed off patient also had E coli UTI treated with the ceftriaxone. History of coronary artery disease with multivessel disease status post PTCA severe ischemic cardiomyopathy chronic systolic congestive heart failure CVA with left hemiplegia hypertensive heart disease hypercholesterolemia type 2 diabetes dementia chronic BPH with a Bacon catheter. The patient marginally improved is alert and awake at the time of discharge spoke to patient's daughter and patient being discharged back to [facility]. Per patient's daughter he was not on hospice prior to come into the hospital. Medications transmitted to the [place] pharmacy for clindamycin and Levaquin p.o. . he will follow up with the [place] . General condition and prognosis very poor Consults/Reason for consult None Operations or Procedures CT head Condition at Discharge: Poor Final Diagnosis/Problems List #Sepsis due to suspected infective endocarditis in the setting of Staphylococcus epidermidis and Staphylococcus capitis subspecies urealitycus bacteremia, and E coli UTI; the patient could not tolerate BRYAN (cardiology signed off); continue IV antibiotics; elevated ESR; cardiology is following; continue monitoring #Staphylococcus epidermidis and Staphylococcus capitis subspecies urealitycus bacteremia; continue IV antibiotics; repeat blood cultures are negative so far; continue monitoring #E coli UTI; continue IV ceftriaxone; reviewed urine culture; continue monitoring #ANALILIA on possible CKD; most likely vasomotor nephropathy in the setting sepsis; avoid nephrotoxic agents; continue monitoring #CAD with multi vessel disease s/p PTCA x1 ALIYAH to proximal to mid LAD; continue aspirin and statin along with clopidogrel; telemetry; cardiology is following (on Plavix and ASA) #Ischemic cardiomyopathy; not in exacerbation; cardiology is following; continue monitoring #Chronic HFrEF, NYHA class III; not in exacerbation; continue medical management; cardiology is following; continue monitoring #CVA with residual left-sided deficit; continue aspirin and statin; no new neurological deficits; continue monitoring #Hypertensive heart disease with systolic heart failure; continue antihypertensive medications as indicated; continue monitoring #Hyperlipidemia; continue statin; continue monitoring #Moderate to severe tricuspid valve regurgitation; reviewed echocardiogram; continue monitoring #Type II diabetes mellitus, insulin dependent; continue insulin sliding scale with hypoglycemia protocol; continue monitoring #Acute toxic/metabolic encephalopathy on the setting of dementia; reviewed head CT; active issues; continue monitoring #Tobacco use disorder; counseled on cessation for 22 minutes; continue monitoring #Severe protein calorie malnutrition; dietitian is following; continue monitoring #DVT prophylaxis; continue prophylactic dose of enoxaparin; continue monitoring #Normocytic anemia; most likely inflammatory due to multiple comorbidities; no signs/symptoms of active bleeding; continue monitoring #Leukopenia; unclear etiology; could be related to sepsis; continue monitoring #BPH with urinary retention status post Bacon's catheter; continue finasteride and tamsulosin; continue monitoring Discharge Disposition: Assisted Living Facility Discharge Instruct/Medications Diet: Cardiac 2g Na,low cholest Activity: Light activity Follow Up/Referral: Resume all previous home medications Follow up with your [facility] Medications: Levaquin Clindamycin Transmitted to [place] pharmacy Reviewed all previous home medications 39 (Time Taken for discharge summary 39 minutes) Discharge Statement: "Patient was advised to return to the ER or call 911 if any headaches, dizziness, shortness of breath, chest pain, abdominal pain, bleeding, fevers, or worsening of medical condition. Patient was counseled about treatment plan, medications, possible side effects, patientverbalized understanding. All questions were answered to the best of my ability. This discharge took greater then 30 minutes in planning, reviewing documentation, counseling the patient, and discussing with other team members." ASSESSMENT ASSESSMENT Hospital Course Marginal improvement Assessment #Sepsis due to suspected infective endocarditis in the setting of Staphylococcus epidermidis and Staphylococcus capitis subspecies urealitycus bacteremia, and E coli UTI; the patient could not tolerate BRYAN (cardiology signed off); continue IV antibiotics; elevated ESR; cardiology is following; continue monitoring #Staphylococcus epidermidis and Staphylococcus capitis subspecies urealitycus bacteremia; continue IV antibiotics; repeat blood cultures are negative so far; continue monitoring #E coli UTI; continue IV ceftriaxone; reviewed urine culture; continue monitoring #ANALILIA on possible CKD; most likely vasomotor nephropathy in the setting sepsis; avoid nephrotoxic agents; continue monitoring #CAD with multi vessel disease s/p PTCA x1 ALIYAH to proximal to mid LAD; continue aspirin and statin along with clopidogrel; telemetry; cardiology is following (on Plavix and ASA) #Ischemic cardiomyopathy; not in exacerbation; cardiology is following; continue monitoring #Chronic HFrEF, NYHA class III; not in exacerbation; continue medical management; cardiology is following; continue monitoring #CVA with residual left-sided deficit; continue aspirin and statin; no new neurological deficits; continue monitoring #Hypertensive heart disease with systolic heart failure; continue antihypertensive medications as indicated; continue monitoring #Hyperlipidemia; continue statin; continue monitoring #Moderate to severe tricuspid valve regurgitation; reviewed echocardiogram; continue monitoring #Type II diabetes mellitus, insulin dependent; continue insulin sliding scale with hypoglycemia protocol; continue monitoring #Acute toxic/metabolic encephalopathy on the setting of dementia; reviewed head CT; active issues; continue monitoring #Tobacco use disorder; counseled on cessation for 22 minutes; continue monitoring #Severe protein calorie malnutrition; dietitian is following; continue monitoring #DVT prophylaxis; continue prophylactic dose of enoxaparin; continue monitoring #Normocytic anemia; most likely inflammatory due to multiple comorbidities; no signs/symptoms of active bleeding; continue monitoring #Leukopenia; unclear etiology; could be related to sepsis; continue monitoring #BPH with urinary retention status post Bacon's catheter; continue finasteride and tamsulosin; continue monitoring Date of Service: Oct 13, 2024 Billing Provider: SHUKRI ROCHA MD Common Visit Codes: [id number] DISCH DAY >30min SHUKRI ROCHA MD Oct 13, 2024 11:13
[2024-10-13] MEDS ORDERED: CLIN1CAP70 PO (11:16)
[2024-10-13] MEDS ORDERED: LEVO500T91 PO (11:16)
--- NOTE | 2024-10-14 06:59 | ECG ---
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
--- NOTE | 2024-10-14 15:05 | ECG ---
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
== END 2024-10-13 18:20 | disposition home or self-care (01) | DRG 871 ==
LOC: EDBD 11:15 → ER 11:15 → TELE 10-04 08:31 → UNDOADMIN 10-04 08:31 → TELE 10-04 09:55 → TELE-WESTW 10-04 22:22 → WEST WING 10-07 11:16 → TELE-WESTW 10-07 17:01
PROVIDERS: ADMIT Internal Medicine; ATTEND Family Medicine
DX: A41.51 Sepsis due to Escherichia coli [E. coli] (principal); E43 Unspecified severe protein-calorie malnutrition; G92.8 Other toxic encephalopathy; I33.0 Acute and subacute infective endocarditis; N17.0 Acute kidney failure with tubular necrosis; N30.01 Acute cystitis with hematuria; I13.0 Hypertensive heart and chronic kidney disease with heart failure and stage 1 through stage 4 chronic kidney disease, or unspecified chronic kidney disease; I69.354 Hemiplegia and hemiparesis following cerebral infarction affecting left non-dominant side; I50.22 Chronic systolic (congestive) heart failure; E55.9 Vitamin D deficiency, unspecified; E86.0 Dehydration; I25.10 Atherosclerotic heart disease of native coronary artery without angina pectoris; K58.9 Irritable bowel syndrome, unspecified; N18.9 Chronic kidney disease, unspecified; I25.5 Ischemic cardiomyopathy; N40.1 Benign prostatic hyperplasia with lower urinary tract symptoms; R33.8 Other retention of urine; Z20.822 Contact with and (suspected) exposure to COVID-19; I36.1 Nonrheumatic tricuspid (valve) insufficiency; F03.90 Unspecified dementia, unspecified severity, without behavioral disturbance, psychotic disturbance, mood disturbance, and anxiety; E78.00 Pure hypercholesterolemia, unspecified; D64.9 Anemia, unspecified; A41.2 Sepsis due to unspecified staphylococcus; E11.22 Type 2 diabetes mellitus with diabetic chronic kidney disease; Z74.01 Bed confinement status; Z98.61 Coronary angioplasty status; Z88.0 Allergy status to penicillin; Z88.6 Allergy status to analgesic agent; I25.2 Old myocardial infarction; Z82.0 Family history of epilepsy and other diseases of the nervous system; Z82.49 Family history of ischemic heart disease and other diseases of the circulatory system; Z79.4 Long term (current) use of insulin; Z68.20 Body mass index [BMI] 20.0-20.9, adult
CPT/HCPCS: 36415; 70450; 71045; 80048; 80053; 80202; 81001; 82140; 82565; 82607; 82746; 83605; 83735; 84443; 84484; 85025; 85610; 85652; 85730; 86141; 86592; 87040; 87077; 87081; 87086; 87088; 87186; 87426; 93005; 93306; 97110; 97116; 97162; 97530; 99291; G0378; J3490; J7042

== ENCOUNTER 2024-12-07 10:03 | Inpatient (IN) | payer OTHER, MEDICAID ==
[~2024-12-07] VITALS: Ht 190.5 cm; Wt 64.0 kg
[~2024-12-07 10:03] MED LIST changes: +CLIN1CAP70 PO; +CYAN1TAB11 PO; +FIN5T PO; +HYDR25TA88 PO; +LEVO500T91 PO; +LEVO88TA4 PO; +TAMS0.4C39 PO
--- NOTE | 2024-12-07 10:14 | ECG ---
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
--- NOTE | 2024-12-07 10:26 | ED.PDOC ---
Altered Mental Status HPI Comments 74 year old male brought in by EMS presents to the ED with a chief complaint of ALOC onset today (12/07/24). Per EMS, patient is from a boarding care, was eating breakfast when they noticed patient was altered, RT side was shaking. EMS states upon their arrival, BS 115, BP 108 systolic, HR 96. Patient is bedridden due to CVA with LT sided deficits. Patient opens his eyes when name is called. PMHx [place], CVA, HTN, dementia, CAD. No other symptoms or modifying factors present at this time. Chief Complaint: ALOC Time Seen by MD: 10:00 Primary Care Provider: UNKNOWN Reviewed Notes: Medications, Allergies Allergies: Coded Allergies: Penicillins (Verified Allergy, Severe, 09/03/23) Aspirin (Verified Allergy, Mild, 10/11/23) Lisinopril (Verified Allergy, Mild, 10/15/23) Ibuprofen (Verified Allergy, Unknown, 10/11/23) Home Meds Active Scripts Levofloxacin Hemihydrate (LEVAQUIN 500 MG) 500 Mg Tab, 1 TAB PO DAILY, #15 TAB Prov:SHUKRI ROCHA MD 10/13/24 Clindamycin Hcl (Clindamycin Hcl) 300 Mg Cap, 1 CAP PO TID, #45 CAP Prov:SHUKRI ROCHA MD 10/13/24 Metoprolol Tartrate (Lopressor) 25 Mg Tb, 12.5 MG PO BID for 90 Days, #90 TAB Prov:RAMESH MENDIOLA MD 10/12/23 Clopidogrel Bisulfate (CLOPIDOGREL) 75 Mg Tab, 75 MG PO DAILY for 90 Days, #90 TAB Prov:RAMESH MENDIOLA MD 10/12/23 Aspirin (Aspirin Low Dose) 81 Mg Tab, 81 MG PO DAILY for 90 Days, #90 TAB 3 Refills Prov:RAMESH MENDIOLA MD 10/12/23 Reported Medications Levothyroxine Sodium (Levothyroxine Sodium) 88 Mcg Tab, 75 MCG PO QAM for 30 Days, MCG 10/05/24 Cyanocobalamin (Vitamin B12) 1,000 Mcg Tab, 1000 MCG PO DAILY, TAB 10/05/24 Hydralazine Hcl (Hydralazine Hcl) 25 Mg Tab, 25 MG PO TID for 30 Days, MG 10/05/24 Tamsulosin Hcl (Tamsulosin Hcl) 0.4 Mg Cap, 1 CAP PO DAILY 10/04/24 Finasteride (Finasteride) 5 Mg Tab, 1 TAB PO DAILY 10/04/24 Cholecalciferol (VITAMIN D3) 2,000 Unit Tab, 1000 TAB PO DAILY, TAB 10/10/23 Spironolactone (Spironolactone) 25 Mg Tab, 0.5 TAB PO DAILY, #90 TAB 1 Refill 10/10/23 Lubiprostone (Amitiza) 24 Mcg Cap, 1 CAP PO BIDWM, #60 CAP 5 Refills 10/10/23 Isosorbide Mononitrate (Isosorbide Mononitrate) 10 Mg Tab, 20 MG PO DAILY for 30 Days, MG 10/10/23 Furosemide (Furosemide) 20 Mg Tab, 20 MG PO DAILY for 30 Days, MG 10/10/23 Atorvastatin Calcium (ATORVASTATIN CALCIUM) 40 Mg Tab, 1 TAB PO HS, #30 TAB 5 Refills 10/10/23 Amlodipine Besylate (Amlodipine Besylate) 5 Mg Tab, 10 MG PO DAILY for 30 Days, MG 10/10/23 Information Source: Patient, Emergency Med Personnel Mode of Arrival: EMS Severity: Moderate Timing: Hours Duration: Since onset Prehospital treatment: None Quality: Decreased Alertness, Change in Behavior Recent: None History of: CVA, Dementia Associated Signs and Symptoms: None Past Medical History PAST MEDICAL HISTORY: CAD, CVA, Dementia, HTN, [place] Surgical History: Denies all surgeries Family History Family History: Unknown Social History Smoker: Non-Smoker Alcohol: Denies ETOH Use Drugs: Denies Drug Use Lives In: Assisted Care Unable to Obtain due to: Altered Mental Status Physical Exam General Appearance: Moderate Distress HEENT: Normal ENT Inspection, Pharynx Normal, TMs Normal Neck: Full Range of Motion, Non-Tender, Normal, Normal Inspection Respiratory: Chest Non-Tender, Lungs Clear, No Accessory Muscle Use, No Respiratory Distress, Normal Breath Sounds Cardiovascular: No Edema, No JVD, No Murmur, No Gallop, Normal Peripheral Pulses, Regular Rate/Rhythm Breast Exam: Deferred Gastrointestinal: No Organomegaly, Non Tender, No Pulsatile Mass, Normal Bowel Sounds, Soft Genitalia: Deferred Pelvic: Deferred Rectal: Deferred Extremities: No calf tenderness, No pedal edema Musculoskeletal : Apperance: Normal Neurologic: Disoriented, Other (Stroke affecting the left upper lower extremity) Cerebellar Function: NOT DONE Reflexes: NOT DONE Skin: Pallor Peripheral Pulses: 3+ Radial (R), 3+ Radial (L) Lymphatic: No Adenopathy Was a procedure done? Was a procedure done?: No Differential Diagnosis (ALOC) Differential Diagnosis: Encephalopathy, Sepsis X-Ray, Labs, Meds, VS Vital Signs Date Time Temp Pulse Resp B/P (MAP) Pulse Ox O2 Delivery O2 Flow Rate FiO2 12/07/24 12:00 68 11 133/70 (91) 100 12/07/24 12:00 72 12/07/24 11:15 78 22 100 Room Air* 0 21 12/07/24 10:23 98.2 64 24 132/73 (92) 98 98.2 12/07/24 10:09 97.8 71 16 102/63 (76) 96 12/07/24 10:06 86 Lab Test 12/07/24 12:16 12/07/24 11:07 12/07/24 10:44 Range/Units Urine Color Light-yellow Yellow Urine Clarity Clear Clear Urine pH 6.5 5.0-9.0 Urine Specific [place] 1.014 1.001-1.035 Urine Protein 2+ H Negative Urine Ketones Negative Negative Urine Blood Negative Negative /uL Urine Nitrite Negative Negative Urine Bilirubin Negative Negative Urine Urobilinogen Normal Negative mg/dL Urine Leukocyte Esterase Negative Negative /uL Urine RBC 10 0 - 3 /hpf Urine Microscopic WBC 4 H 0-3 /HPF Urine Squamous Epithelial Cells Few <5 /hpf Urine Bacteria Few H None Seen /hpf Urine Mucus Few None Seen Urine Glucose Normal Normal mg/dL POC Glucose 124 H 70-106 mg/dl White Blood Count 4.9 4.4-10.8 10^3/uL Red Blood Count 3.72 L 4.5-5.90 10^6/uL Hemoglobin 11.9 L 13.5-17.5 g/dL Hematocrit 36.2 L 41.0-53.0 % Mean Corpuscular Volume 97.2 80.0-100.0 fL Mean Corpuscular Hemoglobin 32.0 28.0-32.0 pg Mean Corpuscular Hemoglobin Concent 33.0 32.0-36.0 g/dL Red Cell Distribution Width 18.2 H 11.8-14.3 % Platelet Count 402 140-450 10^3/uL Mean Platelet Volume 7.3 6.9-10.8 fL Neutrophils (%) (Auto) 65.7 37.0-80.0 % Lymphocytes (%) (Auto) 26.9 10.0-50.0 % Monocytes (%) (Auto) 4.3 0.0-12.0 % Eosinophils (%) (Auto) 1.9 0.0-7.0 % Basophils (%) (Auto) 1.2 0.0-2.0 % Neutrophils # (Auto) 3.2 1.6-8.6 10 ^3/uL Lymphocytes # (Auto) 1.3 0.4-5.4 10 ^3/uL Monocytes # (Auto) 0.2 0-1.3 10 ^3/uL Eosinophils # (Auto) 0.1 0-0.8 10 ^3/uL Basophils # (Auto) 0.1 0-0.2 10 ^3/uL Nucleated Red Blood Cells 0.2 % Sodium Level 146 H 136-145 mmol/L Potassium Level 4.9 3.5-5.1 mmol/L Chloride Level 111 H 98-107 mmol/L Carbon Dioxide Level 25 20-31 mmol/L Anion Gap 10 5-15 Blood Urea Nitrogen 37 H 9-23 mg/dL Creatinine 2.29 H 0.700-1.30 mg/dL Glomerular Filtration Rate Calc 29 >90 mL/min BUN/Creatinine Ratio 16.2 10.0-20.0 Serum Glucose 126 H 74-106 mg/dL Calcium Level 9.6 8.7-10.4 mg/dL Troponin I High Sensitivity 21 </=54 ng/L Current Medications Medications (Trade) Dose Ordered Sig/Yue Route Start Time Stop Time Status Last Admin Levofloxacin/ Dextrose 100 ml @ 100 mls/hr ONCE ONCE IV 12/07/24 10:45 12/07/24 11:44 DC 12/07/24 10:51 Clindamycin Phosphate 50 ml @ 50 mls/hr ONCE ONCE IV 12/07/24 10:45 12/07/24 11:44 DC 12/07/24 13:07 Patient disoriented. Responds to name. He does not answering any questions pain Vitals stable. Possible sepsis from urine. Possible dementia. Possible aspiration pneumonia. Waiting for family. Continue cardiac monitoring. EKG reviewed does not show any acute changes. [address] [address] Ph: [phone] DIAGNOSTIC IMAGING Diagnostic Imaging Report : [id number] Signed PATIENT: SUMAN GARCIA ACCT: [id number] UNIT: [id number] : 1950 LOC: ER ROOM / BED: / AGE / SEX: 74 / M ADM STATUS: REG ER SERVICE 1007 ORDERING PHYSICIAN: DANIEL BUNN MD PROCEDURE(s): CXRP - CHEST PORTABLE REASON: sob ORDER NUMBER(s): [id number], ACCESSION NUMBER(s): [id number] EXAM: XY CHEST PORTABLE HISTORY: sob COMPARISON: XY CHEST PORTABLE on DOS: 10/03/24, XY CHEST PORTABLE on DOS: 10/12/23, XY CHEST XRAY 1 VIEW on DOS: 10/10/23 TECHNIQUE: Portable AP view of the chest was performed. FINDINGS: No pneumothorax, consolidative infiltrates, or pulmonary edema. There is mild elevation of the right hemidiaphragm, new versus prior chest x-ray. The heart is enlarged. There are multiple old left rib fractures. IMPRESSION: Cardiomegaly without evidence of acute intrathoracic process. ATED BY: NADEEM GOOD MD DICTATED DATE/TIME: 12/07/241043 SIGNED BY: NADEEM GOOD MD SIGNED DATE/TIME: 12/07/241043 CC: Time of 1ST Reevaluation: 10:30 Reevaluation 1ST: Unchanged Patient Education/Counseling: Diagnosis, Treatment, Prognosis Family Education/Counseling: No Family Present Additional Information The following tests were ordered, and results were reviewed by me: TROP, CBC, XY CHES, UA, BMP, URINE BACTERIAL CULTURE, EKG Additional Information was gathered from interviewing the following independent historians: EMS I reviewed and agreed with the following test results read by other providers: NICOLE BAKER I discussed treatment and results with medical personnel and: patient Departure 1 Departure Time of Disposition: 10:38 Impression: Primary Impression: Metabolic encephalopathy Additional Impression: Aspiration pneumonia Qualified Codes: J69.0 - Pneumonitis due to inhalation of food and vomit Disposition: ADMITTED INPATIENT Admit to: Med Surg Condition: Guarded Critical Care Note Critical Care Time?: Yes (45 min-critical care time only) Critical care comment: Altered possible aspiration pneumonia. Stability Stability form required: No Heart Score Heart Score: Heart Score Response (Comments) Value History Slightly Suspicious 0 EKG Normal 0 Age >65 2 Risk Factors >3 or Hx ASHD 2 Troponin Normal limit 0 Total 4 I personally scribed for DANIEL BUNN MD ([email or web address]) on 12/07/24 at 10:26. Electronically submitted by Sonia Lux ([email or web address]). I personally scribed for DANIEL BUNN MD ([email or web address]) on 12/07/24 at 11:04. Electronically submitted by Sonia Lux ([email or web address]). DANIEL BUNN MD Dec 07, 2024 10:26
--- NOTE | 2024-12-07 10:47 | DVH ---
EXAM: XY CHEST PORTABLE HISTORY: sob COMPARISON: XY CHEST PORTABLE on DOS: 10/03/24, XY CHEST PORTABLE on DOS: 10/12/23, XY CHEST XRAY 1 VIE W on DOS: 10/10/23 TECHNIQUE: Portable AP view of the chest was performed. FINDINGS: No pneumothorax, consolidative infiltrates, or pulmonary edema. There is mild elevation of the right hemidiaphragm, new versus prior chest x-ray. The heart is enlarged. There are multiple old left rib fractures. IMPRESSION: Cardiomegaly without evidence of acute intrathoracic process.
[2024-12-07] MEDS: levoFLOXacin 500MG 100 ML IV ONE (10:51)
[2024-12-07 11:07] LABS: Potassium 4.9 mmol/L (3.5-5.1)
[2024-12-07 11:08] LABS: Anion Gap 10 (5-15); Carbon Dioxide 25 mmol/L (20-31)
[2024-12-07 11:09] LABS: Calcium 9.6 mg/dL (8.7-10.4)
[2024-12-07 11:10] LABS: Basophils # (auto) 0.1 10 ^3/uL (0-0.2); Basophils % (auto) 1.2 % (0.0-2.0); Eosinophils # (auto) 0.1 10 ^3/uL (0-0.8); Eosinophils % (auto) 1.9 % (0.0-7.0); Hematocrit 36.2 % (41.0-53.0); Hemoglobin 11.9 g/dL (13.5-17.5); Lymphocytes # (auto) 1.3 10 ^3/uL (0.4-5.4); Lymphocytes % (auto) 26.9 % (10.0-50.0); Mean Corpuscular Volume 97.2 fL (80.0-100.0); Monocytes # (auto) 0.2 10 ^3/uL (0-1.3); Monocytes % (auto) 4.3 % (0.0-12.0); Neutrophils # (auto) 3.2 10 ^3/uL (1.6-8.6); Neutrophils % (auto) 65.7 % (37.0-80.0); Nucleated Red Blood Cells % 0.2 %; Platelet Count (auto) 402 10^3/uL (140-450); Red Blood Cells 3.72 10^6/uL (4.5-5.90); Red Cell Distribution Width 18.2 % (11.8-14.3); White Blood Cell 4.9 10^3/uL (4.4-10.8)
[2024-12-07 11:12] LABS: Chloride 111 mmol/L (98-107); Sodium 146 mmol/L (136-145)
[2024-12-07 11:13] LABS: BUN/Creatinine Ratio 16.2 (10.0-20.0)
[2024-12-07 11:15] VITALS: PULSE 78; RESP 22; O2SAT 100
[2024-12-07 11:22] LABS: Blood Urea Nitrogen 37 mg/dL (9-23); Glucose 126 mg/dL (74-106)
[2024-12-07 12:46] LABS: Urine Bacteria FEW /hpf (None Seen); Urine Blood Negative /uL (Negative); Urine Clarity Clear (Clear); Urine Color Light-Yellow (Yellow); Urine Mucus FEW (None Seen); Urine Protein, UAD 2+ (Negative); Urine Specific Gravity 1.014 (1.001-1.035); Urine Squamous Epithelial Cell FEW /hpf (<5); Urine Urobilinogen Normal (Negative); Urine WBC 4 /HPF (0-3); Urine pH 6.5 (5.0-9.0)
[2024-12-07] MEDS: CLINDAMYCIN 300MG IV 50 ML IV ONE (13:07)
[2024-12-07] MEDS ORDERED: DOCUSATE SOD 100 MG CAP PO PRN (16:00)
[2024-12-07] MEDS ORDERED: HYDROcodone-ACET 5/325MG TAB PO PRN (16:00)
[2024-12-07] MEDS ORDERED: ONDANSETRON HCL 4 MG/2 ML VIAL IV PRN (16:00)
[2024-12-07] MEDS ORDERED: ACETAMINOPHEN 325 MG TAB PO PRN (16:00)
--- NOTE | 2024-12-07 17:49 | DVHHP2 ---
History of Present Illness Reason for Visit: Metabolic encephalopathy History of Present Illness The patient is a 74-year-old male with past medical history of dementia, hypertension, [place], CVA, and Coronary artery disease who presented to [facility] ED for evaluation of altered level of consciousness. As reported by EMS, patient was eating breakfast when the notice change in mental status, became altered, right hand was shaking, generalized weakness, getting worse that prompted this visit. Patient was seen and evaluated in the ED, laboratory data shows WBC 4.9, hemoglobin 11.9, hematocrit 36.2, platelets 402, sodium 146, potassium 4.9, BUN 37, creatinine 2.29, GFR 29, glucose 126, troponin 21, blood pressure 133/70, heart rate 72, temperature 98.2 F, O2 saturation 99% on room air. Chest x-ray revealing cardiomegaly without evidence of acute intrathoracic process. Please see medication orders section in the computer. On my assessment, patient denied chest pain, no headache, no dizziness, no diaphoresis, no abdominal pain, no diarrhea, no nausea, no vomiting, no fever, no chills. Patient was admitted for further evaluation and medical management. Past Medical History CAD, CVA, Dementia, HTN, [place] Past Surgical History Denies all surgeries Family History Reviewed, noncontributory to the management of this case. Past Social History The patient lives at assisted living facility, denies smoking, alcohol or illicit drugs abuse. Review of Systems Constitutional: Yes: Weakness; No: Fever, Chills, Sweats, Malaise, Other Eyes: No: Pain, Vision change, Conjunctivae inflammation, Eyelid inflammation, Other, Redness ENT: No: Ear pain, Ear discharge, Nose pain, Nose discharge, Nose congestion, Mouth pain, Mouth swelling, Throat pain, Throat swelling, Other Respiratory: No: Cough, Dry, Shortness of breath, SOB with excertion, Wheezing, Hemoptysis, Pleuritic Pain, Sputum, Wheezing, Other Cardiovascular: No: Chest Pain, Palpitations, Orthopnea, Paroxysmal Noc. Dyspnea, Edema, Lt Headedness, Other Gastrointestinal: No: Nausea, Vomiting, Abdominal Pain, Diarrhea, Constipation, Melena, Hematochezia, Other Genitourinary: No Dysuria, No Frequency, No Incontinence, No Hematuria, No Retention, No Other Musculoskeletal: No: other, neck pain, shoulder pain, arm pain, back pain, hand pain, leg pain, foot pain Skin: No: Rash, Lesions, Jaundice, Bruising, Other Neurological: Other (Altered level of consciousness); No: Weakness, Numbness, Incoordination, Change in speech, Confusion, Seizures Allergies: Coded Allergies: Penicillins (Verified Allergy, Severe, 09/03/23) Aspirin (Verified Allergy, Mild, 10/11/23) Lisinopril (Verified Allergy, Mild, 10/15/23) Ibuprofen (Verified Allergy, Unknown, 10/11/23) Medications Current Medications Medications Dose Ordered Sig/Yue Route Start Time Stop Time Status Last Admin Dose Admin Atorvastatin Calcium 20 mg HS PO 12/07/24 22:00 Clopidogrel Bisulfate 75 mg DAILY PO 12/08/24 10:00 Levothyroxine Sodium 88 mcg QAM@0600 PO 12/08/24 06:00 Metoprolol Tartrate 25 mg BID PO 12/07/24 22:00 Amlodipine Besylate 5 mg DAILY PO 12/08/24 10:00 Sodium Chloride 10 ml Q8HR IV 12/07/24 22:00 Acetaminophen/ Hydrocodone Bitart 1 tab Q4HP PRN PO 12/07/24 16:00 Ondansetron HCl 4 mg Q4HP PRN IV 12/07/24 16:00 Docusate Sodium 100 mg BIDPRN PRN PO 12/07/24 16:00 Acetaminophen 650 mg Q6HP PRN PO 12/07/24 16:00 Exam Vital Signs Vital Signs Date Time Temp Pulse Resp B/P (MAP) Pulse Ox O2 Delivery O2 Flow Rate FiO2 12/07/24 12:00 68 11 133/70 (91) 100 12/07/24 11:15 Room Air* 0 21 12/07/24 10:23 98.2 98.2 General Appearance: Alert, Oriented X3, Cooperative, No acute distress HEENT: Atraumatic, PERRLA, EOMI, Mucous membr. moist/pink Respiratory: Clear to auscultation, Normal air movement Cardiovascular: Regular rate, Normal S1, Normal S2, No murmurs Abdominal: Normal bowel sounds, Soft, No tenderness, No hepatospenomegaly, No masses Extremities: No clubbing, No cyanosis, No edema, Normal pulses, No tenderness/swelling Skin: No rashes, No breakdown, No significant lesion Neuro: Normal speech, Normal tone, Sensation intact, Cranial nerves 3-12 NL, Reflexes 2+, Other (Generalized weakness) Psych/Mental Status: Mental status NL, Mood NL Labs/Xrays Labs Test 12/07/24 12:16 12/07/24 11:07 12/07/24 10:44 Range/Units Urine Color Light-yellow Yellow Urine Clarity Clear Clear Urine pH 6.5 5.0-9.0 Urine Specific [place] 1.014 1.001-1.035 Urine Protein 2+ H Negative Urine Ketones Negative Negative Urine Blood Negative Negative /uL Urine Nitrite Negative Negative Urine Bilirubin Negative Negative Urine Urobilinogen Normal Negative mg/dL Urine Leukocyte Esterase Negative Negative /uL Urine RBC 10 0 - 3 /hpf Urine Microscopic WBC 4 H 0-3 /HPF Urine Squamous Epithelial Cells Few <5 /hpf Urine Bacteria Few H None Seen /hpf Urine Mucus Few None Seen Urine Glucose Normal Normal mg/dL POC Glucose 124 H 70-106 mg/dl White Blood Count 4.9 4.4-10.8 10^3/uL Red Blood Count 3.72 L 4.5-5.90 10^6/uL Hemoglobin 11.9 L 13.5-17.5 g/dL Hematocrit 36.2 L 41.0-53.0 % Mean Corpuscular Volume 97.2 80.0-100.0 fL Mean Corpuscular Hemoglobin 32.0 28.0-32.0 pg Mean Corpuscular Hemoglobin Concent 33.0 32.0-36.0 g/dL Red Cell Distribution Width 18.2 H 11.8-14.3 % Platelet Count 402 140-450 10^3/uL Mean Platelet Volume 7.3 6.9-10.8 fL Neutrophils (%) (Auto) 65.7 37.0-80.0 % Lymphocytes (%) (Auto) 26.9 10.0-50.0 % Monocytes (%) (Auto) 4.3 0.0-12.0 % Eosinophils (%) (Auto) 1.9 0.0-7.0 % Basophils (%) (Auto) 1.2 0.0-2.0 % Neutrophils # (Auto) 3.2 1.6-8.6 10 ^3/uL Lymphocytes # (Auto) 1.3 0.4-5.4 10 ^3/uL Monocytes # (Auto) 0.2 0-1.3 10 ^3/uL Eosinophils # (Auto) 0.1 0-0.8 10 ^3/uL Basophils # (Auto) 0.1 0-0.2 10 ^3/uL Nucleated Red Blood Cells 0.2 % Sodium Level 146 H 136-145 mmol/L Potassium Level 4.9 3.5-5.1 mmol/L Chloride Level 111 H 98-107 mmol/L Carbon Dioxide Level 25 20-31 mmol/L Anion Gap 10 5-15 Blood Urea Nitrogen 37 H 9-23 mg/dL Creatinine 2.29 H 0.700-1.30 mg/dL Glomerular Filtration Rate Calc 29 >90 mL/min BUN/Creatinine Ratio 16.2 10.0-20.0 Serum Glucose 126 H 74-106 mg/dL Calcium Level 9.6 8.7-10.4 mg/dL Troponin I High Sensitivity 21 </=54 ng/L PATIENT: SUMAN GARCIA ACCT: [id number] UNIT: [id number] : 1950 LOC: ER ROOM / BED: / AGE / SEX: 74 / M ADM STATUS: REG ER SERVICE 1007 ORDERING PHYSICIAN: DANIEL BUNN MD PROCEDURE(s): CXRP - CHEST PORTABLE REASON: sob ORDER NUMBER(s): [id number], ACCESSION NUMBER(s): [id number] EXAM: XY CHEST PORTABLE HISTORY: sob COMPARISON: XY CHEST PORTABLE on DOS: 10/03/24, XY CHEST PORTABLE on DOS: 10/12/23, XY CHEST XRAY 1 VIEW on DOS: 10/10/23 TECHNIQUE: Portable AP view of the chest was performed. FINDINGS: No pneumothorax, consolidative infiltrates, or pulmonary edema. There is mild elevation of the right hemidiaphragm, new versus prior chest x-ray. The heart is enlarged. There are multiple old left rib fractures. IMPRESSION: Cardiomegaly without evidence of acute intrathoracic process. Assessment/Plan Assessment/Plan Metabolic encephalopathy Hypernatremia Generalized weakness Acute on chronic renal failure Plan 1. Admit to telemetry unit 2. Breathing treatment 3. Pain control management 4. Management of fluids and electrolytes 5. Consultation for hospitalist 6. Diagnostic tests chest x-ray 7. DVT prophylaxis-on Plavix 8. Repeat labs CBC, CMP in a.m. 9. Continue with current medical management 10. Treatment plan discussed with patient and RN. Patient verbalized understanding. Plan discussed with: Patient, Other (RN) My Orders Orders - ARIAN MONTERO DNP Procedure Category Date Status Time Atorvastatin (Lipitor) PHA 12/07/24 In Process 22:00 Clopidogrel Bisulfate PHA 12/08/24 In Process (Plavix) 10:00 Levothyroxine Tablet PHA 12/08/24 In Process (Synthroid Tablet) 06:00 Metoprolol Tartrate PHA 12/07/24 In Process Tablet (Lopressor Ta 22:00 Amlodipine Tablet PHA 12/08/24 In Process (Norvasc Tablet) 10:00 *[facility] CONS 12/07/24 Transmitted -[place] 15:50 Allergies IGLESIA 12/07/24 In Process 15:50 Code Status CODE 12/07/24 Transmitted 15:50 Sodium Chloride Lock PHA 12/07/24 In Process (Saline Lock Ns) 22:00 Oxygen Per Hour RT 12/07/24 Transmitted 15:50 Hydrocodone-Acet PHA 12/07/24 In Process 5/325mg Tab ([place] 16:00 Ondansetron Hcl PHA 12/07/24 In Process (Zofran) 16:00 Docusate Sodium PHA 12/07/24 In Process Capsule ([place] 16:00 Complete Blood Count LAB 12/08/24 Verified 04:00 Comprehensive LAB 12/08/24 Verified Metabolic Panel 04:00 Cardiac DIET 12/07/24 Transmitted Diet-2gna,Lofat,Lochol Dinner Condition: Serious IGLESIA 12/07/24 In Process 15:50 Acetaminophen Tablet PHA 12/07/24 In Process (Tylenol Tablet) 16:00 Bedrest With Bathroom IGLESIA 12/07/24 In Process Privileg 15:50 Sequential IGLESIA 12/07/24 In Process Compression Device Problem List: (1) Metabolic encephalopathy (2) Hypernatremia (3) Generalized weakness (4) Acute on chronic renal failure Date of Service: Dec 07, 2024 Billing Provider: ARIAN MONTERO DNP Common Visit Codes: 39792-[id number] INP/OBS CARE (HIGH) ARIAN MONTERO DNP Dec 07, 2024 17:49
[2024-12-07] MEDS ORDERED: NITROGLYCERIN 0.4 MG SL TAB SL PRN (18:00)
[2024-12-07] MEDS ORDERED: MORPHINE SULFATE INJ 2 MG/ml SYRG IV PRN (18:00)
[2024-12-07 21:00] VITALS: BP 163/67; PULSE 61; RESP 16; TEMP 98; O2SAT 100
[2024-12-07] MEDS: SODIUM CHLOR 0.9% PF (SALINE LOCK) 10ML VIAL/SYR IV SCH (21:36)
[2024-12-07] MEDS: METOPROLOL TARTRATE 25 MG TAB PO SCH (21:43)
[2024-12-07] MEDS: ATORVASTATIN 20 MG TAB PO SCH (21:43)
[2024-12-07 22:20] VITALS: BP 163/67; PULSE 61; RESP 16; TEMP 98; O2SAT 100
[2024-12-07 23:00] VITALS: BP 148/68
[2024-12-07 23:07] VITALS: BP 163/67; PULSE 61; RESP 16; TEMP 98; O2SAT 100
[2024-12-08] VITALS (8 sets, daily range): BP systolic 139–188; BP diastolic 64–91; PULSE 49–63; RESP 17–18; TEMP 97.4–98.7; O2SAT 95–100
[2024-12-08] MEDS ORDERED: LIDO1PAD55 (00:29)
[2024-12-08] MEDS: LEVOTHYROXINE SODIUM 88 MCG TAB PO SCH (05:54)
[2024-12-08 05:59] LABS: Basophils # (auto) 0.1 10 ^3/uL (0-0.2); Basophils % (auto) 1.4 % (0.0-2.0); Eosinophils # (auto) 0.2 10 ^3/uL (0-0.8); Eosinophils % (auto) 3.8 % (0.0-7.0); Hematocrit 34.5 % (41.0-53.0); Hemoglobin 10.9 g/dL (13.5-17.5); Lymphocytes # (auto) 1.4 10 ^3/uL (0.4-5.4); Lymphocytes % (auto) 32.5 % (10.0-50.0); Mean Corpuscular Hemoglobin 31.7 pg (28.0-32.0); Mean Corpuscular Hgb Conc. 31.6 g/dL (32.0-36.0); Mean Corpuscular Volume 100.4 fL (80.0-100.0); Monocytes # (auto) 0.3 10 ^3/uL (0-1.3); Monocytes % (auto) 6.4 % (0.0-12.0); Neutrophils # (auto) 2.5 10 ^3/uL (1.6-8.6); Neutrophils % (auto) 55.9 % (37.0-80.0); Nucleated Red Blood Cells % 0.3 %; Platelet Count (auto) 261 10^3/uL (140-450); Red Blood Cells 3.44 10^6/uL (4.5-5.90); Red Cell Distribution Width 18.2 % (11.8-14.3); White Blood Cell 4.4 10^3/uL (4.4-10.8)
[2024-12-08 06:19] LABS: Albumin 3.6 g/dL (3.2-4.8); Alkaline Phosphatase 115 U/L (46-116); Anion Gap 10 (5-15); Aspartate Aminotransferase 21 U/L (13-40); BUN/Creatinine Ratio 14.4 (10.0-20.0); Bilirubin, Total 0.5 mg/dL (0.2-1.0); Calcium 9.6 mg/dL (8.7-10.4); Carbon Dioxide 21 mmol/L (20-31); Potassium 4.5 mmol/L (3.5-5.1); Sodium 143 mmol/L (136-145); Total Protein 6.8 g/dL (5.7-8.2)
[2024-12-08 06:38] LABS: Alanine Aminotransferase < 9 U/L (7-40); Blood Urea Nitrogen 29 mg/dL (9-23); Chloride 112 mmol/L (98-107); Glucose 68 mg/dL (74-106)
[2024-12-08] MEDS: amLODIPine BESYLATE 5 MG TAB PO SCH (08:36)
[2024-12-08] MEDS: CLOPIDOGREL BISULFATE 75 MG TAB PO SCH (08:38)
[2024-12-08] MEDS: cloNIDine HCL 0.1 MG TAB PO PRN (14:21)
--- NOTE | 2024-12-08 14:32 | DVHPN2 ---
Reviewed: Care Plan, H&P, Labs, Medications, Previous Orders, Radiology Changes from previous H/P or p: No Changes Eyes: No Pain, No Vision change, No Conjunctivae inflammation, No Eyelid inflammation, No Other, No Redness ENT: No Ear pain, No Ear discharge, No Nose pain, No Nose discharge, No Nose congestion, No Mouth pain, No Mouth swelling, No Throat pain, No Throat swelling, No Other Cardiovascular: No Chest Pain, No Palpitations, No Orthopnea, No Paroxysmal Noc. Dyspnea, No Edema, No Lt Headedness, No Other Respiratory: No Cough, No Dry, No Shortness of breath, No SOB with excertion, No Wheezing, No Hemoptysis, No Pleuritic Pain, No Sputum, No Other Gastrointestinal: No Nausea, No Vomiting, No Abdominal Pain, No Diarrhea, No Constipation, No Melena, No Hematochezia, No Other Genitourinary: No Dysuria, No Frequency, No Incontinence, No Hematuria, No Retention, No Other Musculoskeletal: No other, No neck pain, No shoulder pain, No arm pain, No back pain, No hand pain, No leg pain, No foot pain Skin: No Rash, No Lesions, No Jaundice, No Bruising, No Other Objective Vitals Vital Signs Date Time Temp Pulse Resp B/P (MAP) Pulse Ox O2 Delivery O2 Flow Rate FiO2 12/08/24 14:21 188/77 12/08/24 08:37 60 12/08/24 08:00 Room Air* 0 21 12/08/24 05:00 98.0 17 96 98.0 Intake/Output Intake and Output 12/08/24 07:00 Intake Total 150 ml Output Total 700 ml Balance -550 ml Intake Oral 0 ml IV Total 150 ml Output Urine Total 700 ml Medications Current Medications Medications Dose Ordered Sig/Yue Route Start Time Stop Time Status Last Admin Dose Admin Atorvastatin Calcium 20 mg HS PO 12/07/24 22:00 12/07/24 21:43 20 MG Clopidogrel Bisulfate 75 mg DAILY PO 12/08/24 10:00 12/08/24 08:38 75 MG Levothyroxine Sodium 88 mcg QAM@0600 PO 12/08/24 06:00 12/08/24 05:54 88 MCG Metoprolol Tartrate 25 mg BID PO 12/07/24 22:00 12/08/24 08:37 25 MG Amlodipine Besylate 5 mg DAILY PO 12/08/24 10:00 12/08/24 08:36 5 MG Sodium Chloride 10 ml Q8HR IV 12/07/24 22:00 12/08/24 14:23 10 ML Acetaminophen/ Hydrocodone Bitart 1 tab Q4HP PRN PO 12/07/24 16:00 Ondansetron HCl 4 mg Q4HP PRN IV 12/07/24 16:00 Docusate Sodium 100 mg BIDPRN PRN PO 12/07/24 16:00 Acetaminophen 650 mg Q6HP PRN PO 12/07/24 16:00 Nitroglycerin 0.4 mg Q5MINP PRN SL 12/07/24 18:00 Morphine Sulfate 2 mg Q30M PRN IV 12/07/24 18:00 Clonidine HCl 0.2 mg Q6HP PRN PO 12/08/24 13:30 12/08/24 14:21 0.2 MG Laboratory Results Laboratory Tests 12/08/24 05:34 Chemistry Test 12/08/24 05:34 Albumin 3.6 g/dL (3.2-4.8) Calcium Level 9.6 mg/dL (8.7-10.4) Total Protein 6.8 g/dL (5.7-8.2) LFT Test 12/08/24 05:34 Alanine Aminotransferase (ALT) < 9 U/L (7-40) Alkaline Phosphatase 115 U/L (46-116) Aspartate Amino Transferase (AST) 21 U/L (13-40) Total Bilirubin 0.5 mg/dL (0.2-1.0) Urinalysis Test 12/07/24 12:16 Urine Color Light-yellow (Yellow) Urine Clarity Clear (Clear) Urine pH 6.5 (5.0-9.0) Urine Specific [place] 1.014 (1.001-1.035) Urine Protein 2+ (Negative) H Urine Ketones Negative (Negative) Urine Blood Negative /uL (Negative) Urine Nitrite Negative (Negative) Urine Bilirubin Negative (Negative) Urine Urobilinogen Normal mg/dL (Negative) Urine Leukocyte Esterase Negative /uL (Negative) Urine RBC 10 /hpf (0 - 3) Urine Microscopic WBC 4 /HPF (0-3) H Urine Squamous Epithelial Cells Few /hpf (<5) Urine Bacteria Few /hpf (None Seen) H Urine Mucus Few (None Seen) Urine Glucose Normal mg/dL (Normal) Microbiology Microbiology Date/Time Source Procedure Growth Status 12/08/24 00:45 Nose MRSA Screen - Final Complete 12/07/24 12:16 Urine - [place] Urine Culture - Preliminary Resulted Labs and/or images reviewed: Labs reviewed by me, Image(s) reviewed by me Assessment/Plan Assessment/Plan Acute metabolic encephalopathy unknown etiology: CT head urine drug screen blood cultures Yu test COVID test D-dimer Hypotension: Metoprolol amlodipine Hypothyroidism: Synthroid Hypercholesterolemia: Lipitor Coronary artery disease: Plavix History of CVA History of [place] Dementia Patient is hospice revoked Lives in [facility] facility Patient is full code Advanced care planning time 20 mts Time spent 65 mts Plan discussed with: Patient My Orders Orders - SHUKRI ROCHA MD Procedure Category Date Status Time Clonidine Hcl Tablet PHA 12/08/24 In Process (Catapres Tablet) 13:30 Drug Screen LAB 12/08/24 Transmitted 14:27 Blood Alcohol LAB 12/08/24 Transmitted 14:27 Blood Culture LEONID 12/08/24 Transmitted 14:27 Date of Service: Dec 08, 2024 Billing Provider: SHUKRI ROCHA MD Common Visit Codes: 81069-[id number] INP/OBS CARE(HIGH) Secondary Visit Codes: [id number] CARE PLAN 30 MINUTES SHUKRI ROCHA MD Dec 08, 2024 14:32
--- NOTE | 2024-12-08 20:11 | DVHINCON2 ---
Date of service: Dec 08, 2024 Reason for Consultation mirela History of Present Illness 74 years old male with past medical history congestive heart failure, coronary artery disease, status post PTCA , Chronic kidney disease, BPH, extensive smoking history, dementia, CVA, congestive heart failure reduced ejection fraction, diabetes, presented with chief complaints of altered mental status patient is a poor historian he does not answer any questions on admission found to have atrial fibrillation Past Medical History As per HPI Allergies: Coded Allergies: Penicillins (Verified Allergy, Severe, 09/03/23) Aspirin (Verified Allergy, Mild, 10/11/23) Lisinopril (Verified Allergy, Mild, 10/15/23) Ibuprofen (Verified Allergy, Unknown, 10/11/23) Home Meds Active Scripts Levofloxacin Hemihydrate (LEVAQUIN 500 MG) 500 Mg Tab, 1 TAB PO DAILY, #15 TAB Prov:SHUKRI ROCHA MD 10/13/24 Clopidogrel Bisulfate (CLOPIDOGREL) 75 Mg Tab, 75 MG PO DAILY for 90 Days, #90 TAB Prov:RAMESH MENDIOLA MD 10/12/23 Reported Medications Lidocaine (Lidocaine) 5 % Pad, 1 DAILY 12/08/24 Levothyroxine Sodium (Levothyroxine Sodium) 88 Mcg Tab, 75 MCG PO QAM for 30 Days, MCG 10/05/24 Cyanocobalamin (Vitamin B12) 1,000 Mcg Tab, 1000 MCG PO DAILY, TAB 10/05/24 Hydralazine Hcl (Hydralazine Hcl) 25 Mg Tab, 25 MG PO TID for 30 Days, MG 10/05/24 Cholecalciferol (VITAMIN D3) 2,000 Unit Tab, 1000 TAB PO DAILY, TAB 10/10/23 Isosorbide Mononitrate (Isosorbide Mononitrate) 10 Mg Tab, 20 MG PO DAILY for 30 Days, MG 10/10/23 Atorvastatin Calcium (ATORVASTATIN CALCIUM) 40 Mg Tab, 1 TAB PO HS, #30 TAB 5 Refills 10/10/23 Amlodipine Besylate (Amlodipine Besylate) 5 Mg Tab, 10 MG PO DAILY for 30 Days, MG 10/10/23 Current Medications Current Medications Medications (Trade) Dose Ordered Sig/Yue Route PRN Reason Start Time Stop Time Status Last Admin Lorazepam (Ativan Inj) 1 mg ONCE PRN IV MRI 12/08/24 21:15 Hydralazine HCl (Apresoline Injection) 10 mg Q6HR IV 12/09/24 12:00 12/09/24 14:29 DC Empaglifozin (Jardiance) 10 mg DAILY PO 12/10/24 10:00 Family History: Alzheimer's disease G8 FATHER Hypertension G8 MOTHER G8 FATHER Review of Systems Unable to obtain H&P Exam Vital Signs/I&O Vital Sign Date Time Temp Pulse Resp B/P (MAP) Pulse Ox O2 Delivery O2 Flow Rate FiO2 12/09/24 16:31 98.0 58 18 145/69 (94) 99 98.0 12/09/24 08:00 Room Air* 0 21 Intake and Output 12/08/24 12/09/24 19:00 07:00 Intake Total 550 ml 230 ml Output Total 850 ml 400 ml Balance -300 ml -170 ml Intake Oral 550 ml 230 ml Output Urine Total 850 ml 400 ml Physical Exam General-not in any distress HEENT-normocephalic, Respiratory-fair air entry bilateral, no rhonchi, no wheeze [id number] heard, +murmur Abdominal-soft, nontender, nondistended Musculoskeletal-no pedal edema, no calf tenderness Labs/Diagnostic Data Labs/Diagnostic Data Laboratory Tests Test 12/08/24 15:08 12/08/24 05:34 12/07/24 12:16 12/07/24 11:07 Range/Units Plasma/Serum Blood Alcohol 4.5 <10 mg/dL White Blood Count 4.4 4.4-10.8 10^3/uL Red Blood Count 3.44 L 4.5-5.90 10^6/uL Hemoglobin 10.9 L 13.5-17.5 g/dL Hematocrit 34.5 L 41.0-53.0 % Mean Corpuscular Volume 100.4 H 80.0-100.0 fL Mean Corpuscular Hemoglobin 31.7 28.0-32.0 pg Mean Corpuscular Hemoglobin Concent 31.6 L 32.0-36.0 g/dL Red Cell Distribution Width 18.2 H 11.8-14.3 % Platelet Count 261 140-450 10^3/uL Mean Platelet Volume 7.1 6.9-10.8 fL Neutrophils (%) (Auto) 55.9 37.0-80.0 % Lymphocytes (%) (Auto) 32.5 10.0-50.0 % Monocytes (%) (Auto) 6.4 0.0-12.0 % Eosinophils (%) (Auto) 3.8 0.0-7.0 % Basophils (%) (Auto) 1.4 0.0-2.0 % Neutrophils # (Auto) 2.5 1.6-8.6 10 ^3/uL Lymphocytes # (Auto) 1.4 0.4-5.4 10 ^3/uL Monocytes # (Auto) 0.3 0-1.3 10 ^3/uL Eosinophils # (Auto) 0.2 0-0.8 10 ^3/uL Basophils # (Auto) 0.1 0-0.2 10 ^3/uL Nucleated Red Blood Cells 0.3 % Sodium Level 143 136-145 mmol/L Potassium Level 4.5 3.5-5.1 mmol/L Chloride Level 112 H 98-107 mmol/L Carbon Dioxide Level 21 20-31 mmol/L Anion Gap 10 5-15 Blood Urea Nitrogen 29 H 9-23 mg/dL Creatinine 2.01 H 0.700-1.30 mg/dL Glomerular Filtration Rate Calc 34 >90 mL/min BUN/Creatinine Ratio 14.4 10.0-20.0 Serum Glucose 68 L 74-106 mg/dL Calcium Level 9.6 8.7-10.4 mg/dL Total Bilirubin 0.5 0.2-1.0 mg/dL Aspartate Amino Transferase (AST) 21 13-40 U/L Alanine Aminotransferase (ALT) < 9 7-40 U/L Alkaline Phosphatase 115 46-116 U/L Total Protein 6.8 5.7-8.2 g/dL Albumin 3.6 3.2-4.8 g/dL Urine Color Light-yellow Yellow Urine Clarity Clear Clear Urine pH 6.5 5.0-9.0 Urine Specific [place] 1.014 1.001-1.035 Urine Protein 2+ H Negative Urine Ketones Negative Negative Urine Blood Negative Negative /uL Urine Nitrite Negative Negative Urine Bilirubin Negative Negative Urine Urobilinogen Normal Negative mg/dL Urine Leukocyte Esterase Negative Negative /uL Urine RBC 10 0 - 3 /hpf Urine Microscopic WBC 4 H 0-3 /HPF Urine Squamous Epithelial Cells Few <5 /hpf Urine Bacteria Few H None Seen /hpf Urine Mucus Few None Seen Urine Glucose Normal Normal mg/dL POC Glucose 124 H 70-106 mg/dl Test 12/07/24 10:44 Range/Units White Blood Count 4.9 4.4-10.8 10^3/uL Red Blood Count 3.72 L 4.5-5.90 10^6/uL Hemoglobin 11.9 L 13.5-17.5 g/dL Hematocrit 36.2 L 41.0-53.0 % Mean Corpuscular Volume 97.2 80.0-100.0 fL Mean Corpuscular Hemoglobin 32.0 28.0-32.0 pg Mean Corpuscular Hemoglobin Concent 33.0 32.0-36.0 g/dL Red Cell Distribution Width 18.2 H 11.8-14.3 % Platelet Count 402 140-450 10^3/uL Mean Platelet Volume 7.3 6.9-10.8 fL Neutrophils (%) (Auto) 65.7 37.0-80.0 % Lymphocytes (%) (Auto) 26.9 10.0-50.0 % Monocytes (%) (Auto) 4.3 0.0-12.0 % Eosinophils (%) (Auto) 1.9 0.0-7.0 % Basophils (%) (Auto) 1.2 0.0-2.0 % Neutrophils # (Auto) 3.2 1.6-8.6 10 ^3/uL Lymphocytes # (Auto) 1.3 0.4-5.4 10 ^3/uL Monocytes # (Auto) 0.2 0-1.3 10 ^3/uL Eosinophils # (Auto) 0.1 0-0.8 10 ^3/uL Basophils # (Auto) 0.1 0-0.2 10 ^3/uL Nucleated Red Blood Cells 0.2 % Sodium Level 146 H 136-145 mmol/L Potassium Level 4.9 3.5-5.1 mmol/L Chloride Level 111 H 98-107 mmol/L Carbon Dioxide Level 25 20-31 mmol/L Anion Gap 10 5-15 Blood Urea Nitrogen 37 H 9-23 mg/dL Creatinine 2.29 H 0.700-1.30 mg/dL Glomerular Filtration Rate Calc 29 >90 mL/min BUN/Creatinine Ratio 16.2 10.0-20.0 Serum Glucose 126 H 74-106 mg/dL Calcium Level 9.6 8.7-10.4 mg/dL Troponin I High Sensitivity 21 </=54 ng/L Microbiology Date/Time Source Procedure Growth Status 12/08/24 00:45 Nose MRSA Screen - Final Complete 12/07/24 12:16 Urine - [place] Urine Culture - Final Complete Assessment Acute kidney injury on Chronic kidney disease IIIb hemodynamic mediated Congestive heart failure reduced ejection fraction Encephalopathy Hypertension Atrial fibrillation DNR Recommendations Kidney ultrasound rule out obstruction Conservative management Plan discussed with: Other EMILIA PINEDA MD Dec 08, 2024 20:11
--- NOTE | 2024-12-08 20:49 | DVHINCON2 ---
Date of service: Dec 08, [address] Rocha Reason for Consultation Altered mental status History of Present Illness Mr. Skip Ruiz is a 74 years old gentleman with a history of hypertension, diabetes, dyslipidemia, hypothyroidism, coronary artery disease, heart attack, congestive heart failure, atrial fibrillation failure, stroke, [facility] 12[facility]24 with a chief company of altered mental status, at this time, he is awake, with reasonable social skills, he follows verbal commands, but is only oriented to himself, no family available for the history, the information is obtained from his nurse and chart review Apparently, the patient becomes mentally altered in the morning on 12/09/2024 in that he was sitting, staring forward, with tremors/shaking in the right extremities He had 2 strokes previously with a detailed history, ER note mentioned in the stroke with left-sided deficit. The patient was was said to be bed-bound after the stroke Home medication, aspirin 81 mg daily, Lipitor 40 mg daily The [facility] documentation mentioned history of AFib, but he was not on anticoagulation treatment [phone], no answer, Plasma alcohol, 12/08/2024: 4.5 Urinalysis, 12/07/2024: Four, urine leukocyte esterase: Negative CBC, 12/08/2024: 4.4/10.9/261/100.4 Na, 12/07/2024: 146, 12/08/2024: 143 BUN/CR, 12/07/2024: 37/2.29, 12/08/2024: 29/2.01 Liver function tests, 12/08/2024: Unremarkable TG/HDL/LDL/HDL, 10/10/2023: 63/101/25/51 Vitamin B12, 10/07/2024: 1906 Folic acid, 10/07/2024: 7.45 TSH, 10/07/24: 1.31 EKG, 10/17/2023: AFib. 10/03/2024: AFib Echocardiogram, 10/09/2024: Normal left ventricular size with an ejection fraction of 35%. Regional wall motion abnormalities as described above. [id number] concentric left ventricular hypertrophy with impaired relaxation of the left ventricle. Right ventricle is mildly dilated in size with preserved systolic function. Moderate biatrial enlargement. Calcified aortic valve with no significant stenosis. No hemodynamically significant valvular disease. PA systolic pressure is estimated at 35-40 mmHg. Mildly dilated aortic root. Chest x-ray, 12/07/2024: Cardiomegaly without evidence of acute intrathoracic process CT head, 10/03/2024: No acute intracranial hemorrhage. 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 No CT findings of territorial ischemia (The ventricles, sulci and cisterns are age appropriate) (I question possible hydrocephalus) Past Medical History Hypertension, diabetes, dyslipidemia, hypothyroidism, coronary artery disease, heart attack, congestive heart failure, atrial fibrillation failure, stroke, chronic low back pain Past Surgical History Back surgeries Family History: Alzheimer's disease G8 FATHER Hypertension G8 MOTHER G8 FATHER Family History Hypertension, Alzheimer's disease Social History He was tobacco smoker, no history of alcohol or recreational substance abuse Allergies: Coded Allergies: Penicillins (Verified Allergy, Severe, 09/03/23) Aspirin (Verified Allergy, Mild, 10/11/23) Lisinopril (Verified Allergy, Mild, 10/15/23) Ibuprofen (Verified Allergy, Unknown, 10/11/23) Home Meds Active Scripts Levofloxacin Hemihydrate (LEVAQUIN 500 MG) 500 Mg Tab, 1 TAB PO DAILY, #15 TAB Prov:SHUKRI ROCHA MD 10/13/24 Clopidogrel Bisulfate (CLOPIDOGREL) 75 Mg Tab, 75 MG PO DAILY for 90 Days, #90 TAB Prov:RAMESH MENDIOLA MD 10/12/23 Reported Medications Lidocaine (Lidocaine) 5 % Pad, 1 DAILY 12/08/24 Levothyroxine Sodium (Levothyroxine Sodium) 88 Mcg Tab, 75 MCG PO QAM for 30 Days, MCG 10/05/24 Cyanocobalamin (Vitamin B12) 1,000 Mcg Tab, 1000 MCG PO DAILY, TAB 10/05/24 Hydralazine Hcl (Hydralazine Hcl) 25 Mg Tab, 25 MG PO TID for 30 Days, MG 10/05/24 Cholecalciferol (VITAMIN D3) 2,000 Unit Tab, 1000 TAB PO DAILY, TAB 10/10/23 Isosorbide Mononitrate (Isosorbide Mononitrate) 10 Mg Tab, 20 MG PO DAILY for 30 Days, MG 10/10/23 Atorvastatin Calcium (ATORVASTATIN CALCIUM) 40 Mg Tab, 1 TAB PO HS, #30 TAB 5 Refills 10/10/23 Amlodipine Besylate (Amlodipine Besylate) 5 Mg Tab, 10 MG PO DAILY for 30 Days, MG 10/10/23 Current Medications Current Medications Medications (Trade) Dose Ordered Sig/Yue Route PRN Reason Start Time Stop Time Status Last Admin Atorvastatin Calcium (Lipitor) 20 mg HS PO 12/07/24 22:00 12/07/24 21:43 Clopidogrel Bisulfate (Plavix) 75 mg DAILY PO 12/08/24 10:00 12/08/24 08:38 Levothyroxine Sodium (Synthroid Tablet) 88 mcg QAM@0600 PO 12/08/24 06:00 12/08/24 05:54 Metoprolol Tartrate (Lopressor Tablet) 25 mg BID PO 12/07/24 22:00 12/08/24 08:37 Amlodipine Besylate (Norvasc Tablet) 5 mg DAILY PO 12/08/24 10:00 12/08/24 08:36 Sodium Chloride (Saline Lock Ns) 10 ml Q8HR IV 12/07/24 22:00 12/08/24 14:23 Clonidine HCl (Catapres Tablet) 0.2 mg Q6HP PRN PO SBP>160 12/08/24 13:30 12/08/24 14:21 Review of Systems Unobtainable Vital Signs Vital Signs Date Time Temp Pulse Resp B/P (MAP) Pulse Ox O2 Delivery O2 Flow Rate FiO2 12/08/24 17:00 97.4 53 18 165/73 (103) 98 97.4 12/08/24 08:00 Room Air* 0 21 Physical Exam GENERAL EXAM: General: the patient is well developed and nourished. No acute distress. HEENT: Normocephalic, neck is supple, no carotid bruits. No mass. RESPIRATORY: Normal respiratory effort with symmetrical lung expansion. Lungs clear to auscultation. CARDIOVASCULAR: Regular rate and rhythm with no murmurs. S1, S2. ABDOMEN: Soft, nontender, normal bowel sound NEUROLOGICAL: MENTAL STATUS: HPI SPEECH, LANGUAGE, HIGHER CORTICAL FUNCTION: no aphasia or dysathria. CRANIAL NERVES: #2: Intact visual brand to confrontation #3,4,6: Pupils are equal, round and reactive. EOMs full and conjugate #5: Facial sensation intact in all three divisions bilaterally. Mandibular stren gth intact. #7: Facial muscles symmetrical and strength intact. #8: Hearing grossly normal to voice. #9,10: Uvula and soft palate rise in the midline. Swallow and voice are normal. #11: Trapezius and sternomastoid strength intact bilaterally. #12: Tongue midline. No fasciculations or atrophy. SENSATION: Sensation to touch and pinprick is normal. MOTOR: Normal tone in the upper and lower extremity. Normal muscle bulk. No fasciculations. No abnormal movements or posturing. Muscle strength of the major groups in the upper extremities is 4/5 with the left side weaker. Muscle strength of the major groups in the lower extremities is 4/5. REFLEXES: Deep tendon reflexes are ymmetrical. No pathological reflexes. Labs/Diagnostic Data Labs Test 12/08/24 15:08 12/08/24 05:34 12/07/24 12:16 12/07/24 11:07 Range/Units Plasma/Serum Blood Alcohol 4.5 <10 mg/dL White Blood Count 4.4 4.4-10.8 10^3/uL Red Blood Count 3.44 L 4.5-5.90 10^6/uL Hemoglobin 10.9 L 13.5-17.5 g/dL Hematocrit 34.5 L 41.0-53.0 % Mean Corpuscular Volume 100.4 H 80.0-100.0 fL Mean Corpuscular Hemoglobin 31.7 28.0-32.0 pg Mean Corpuscular Hemoglobin Concent 31.6 L 32.0-36.0 g/dL Red Cell Distribution Width 18.2 H 11.8-14.3 % Platelet Count 261 140-450 10^3/uL Mean Platelet Volume 7.1 6.9-10.8 fL Neutrophils (%) (Auto) 55.9 37.0-80.0 % Lymphocytes (%) (Auto) 32.5 10.0-50.0 % Monocytes (%) (Auto) 6.4 0.0-12.0 % Eosinophils (%) (Auto) 3.8 0.0-7.0 % Basophils (%) (Auto) 1.4 0.0-2.0 % Neutrophils # (Auto) 2.5 1.6-8.6 10 ^3/uL Lymphocytes # (Auto) 1.4 0.4-5.4 10 ^3/uL Monocytes # (Auto) 0.3 0-1.3 10 ^3/uL Eosinophils # (Auto) 0.2 0-0.8 10 ^3/uL Basophils # (Auto) 0.1 0-0.2 10 ^3/uL Nucleated Red Blood Cells 0.3 % Sodium Level 143 136-145 mmol/L Potassium Level 4.5 3.5-5.1 mmol/L Chloride Level 112 H 98-107 mmol/L Carbon Dioxide Level 21 20-31 mmol/L Anion Gap 10 5-15 Blood Urea Nitrogen 29 H 9-23 mg/dL Creatinine 2.01 H 0.700-1.30 mg/dL Glomerular Filtration Rate Calc 34 >90 mL/min BUN/Creatinine Ratio 14.4 10.0-20.0 Serum Glucose 68 L 74-106 mg/dL Calcium Level 9.6 8.7-10.4 mg/dL Total Bilirubin 0.5 0.2-1.0 mg/dL Aspartate Amino Transferase (AST) 21 13-40 U/L Alanine Aminotransferase (ALT) < 9 7-40 U/L Alkaline Phosphatase 115 46-116 U/L Total Protein 6.8 5.7-8.2 g/dL Albumin 3.6 3.2-4.8 g/dL Urine Color Light-yellow Yellow Urine Clarity Clear Clear Urine pH 6.5 5.0-9.0 Urine Specific [place] 1.014 1.001-1.035 Urine Protein 2+ H Negative Urine Ketones Negative Negative Urine Blood Negative Negative /uL Urine Nitrite Negative Negative Urine Bilirubin Negative Negative Urine Urobilinogen Normal Negative mg/dL Urine Leukocyte Esterase Negative Negative /uL Urine RBC 10 0 - 3 /hpf Urine Microscopic WBC 4 H 0-3 /HPF Urine Squamous Epithelial Cells Few <5 /hpf Urine Bacteria Few H None Seen /hpf Urine Mucus Few None Seen Urine Glucose Normal Normal mg/dL POC Glucose 124 H 70-106 mg/dl Test 12/07/24 10:44 Range/Units Troponin I High Sensitivity 21 </=54 ng/L Microbiology Date/Time Source Procedure Growth Status 12/08/24 00:45 Nose MRSA Screen - Final Complete 12/07/24 12:16 Urine - [place] Urine Culture - Preliminary Resulted Assessment Altered mental status Metabolic encephalopathy secondary to dehydration, hypernatremia ? Partial complex seizure Altered mental started with right-sided shaking ? Partial complex seizure History strokes x2 with left-sided weakness Atrial fibrillation not on anticoagulation treatment Reported dementia Plan/Recommendation Monitoring Supportive treatment Telemetry EEG MR head Plavix 75 mg daily Lipitor 20 mg daily Ativan for seizure breakthrough Category evaluation Re: A fib More recommendation per clinical course Progress: Poor This medical document was created using an electronic medical record system with [employer] dictation system. Although this document has been carefully reviewed, there may still be some phonetic and typographical errors. These areas are purely typographical due to imperfections of the software programs, and do not reflect any compromise in the patient's medical care. Plan discussed with: Other ALEXANDRA BASILIO MD Dec 08, 2024 20:49
[2024-12-08] MEDS ORDERED: LORazepam 2MG/ML-1ML VIAL IV PRN (21:15)
[2024-12-09] VITALS (8 sets, daily range): BP systolic 116–165; BP diastolic 55–81; PULSE 47–65; RESP 16–18; TEMP 97.6–98.9; O2SAT 96–100
--- NOTE | 2024-12-09 09:18 | DVH ---
CT HEAD WITHOUT CONTRAST INDICATION: Altered mental status EXAM DATE: 12/09/2024 08:51 AM COMPARISON: CT HEAD WITHOUT CONTRAST on DOS: 10/03/24 RADIATION DOSE: CTDIvol: 68.84 mGy, DLP: 1218.61 mGy*cm PROCEDURE: CT scans of the head were obtained from the vertex to the skull base. Sagittal and coronal reconstructions were provided. All CT scans at this medical facility are performed using dose modulation techniques as appropriate t o a performed exam including the following: Automated exposure control was utilized; adjustment of th e MA and/or KV according to patient size; and use of iterative reconstruction technique. FINDINGS: There is sulcal and ventricular prominence. The brain otherwise shows normal morphology a nd crocker-white matter differentiation, without intracranial hemorrhage, extra-axial fluid collection, mass effect or acute large vessel infarct.The basal cisterns are patent. The skull and visible facial bones are intact. The paranasal sinuses, mastoid air cells and middle ear cavities are well-aerated. The soft tissues of the scalp are unremarkable. IMPRESSION: No acute intracranial abnormality. No significant changes compared to prior CT head.
--- NOTE | 2024-12-09 09:30 | DVHPN2 ---
Progress Note - Dictate Date Seen: Dec 09, 2024 Medical Necessity Reason Pt with a Central, PICC or Fol: Yes The following are medically ne: Bacon Catheter Subjective Mr. Skip Ruiz is a 74 years old gentleman with a history of hypertension, diabetes, dyslipidemia, hypothyroidism, coronary artery disease, heart attack, congestive heart failure, atrial fibrillation failure, stroke, he was [facility] on 12/07/2024 with a chief complaint of altered mental status I have seen and examined the patient was along with his nurse, I have talked to MRI. He was awake, oriented to person, he knows in the hospital, not able to answer questions properly or give history He talks when he wants to He moves the arms and legs on verbal commands, the left-sided feel weaker MR head obtained, report pending, I suspect chronic stroke in the right pontine region and permanent ventricles Plasma alcohol, 12/08/2024: 4.5 Urinalysis, 12/07/2024: Four, urine leukocyte esterase: Negative CBC, 12/08/2024: 4.4/10.9/261/100.4 Na, 12/07/2024: 146, 12/08/2024: 143 BUN/CR, 12/07/2024: 37/2.29, 12/08/2024: 29/2.01 Liver function tests, 12/08/2024: Unremarkable TG/HDL/LDL/HDL, 10/10/2023: 63/101/25/51 Vitamin B12, 10/07/2024: 1906 Folic acid, 10/07/2024: 7.45 TSH, 10/07/24: 1.31 EKG, 10/17/2023: AFib. 10/03/2024: AFib Echocardiogram, 10/09/2024: Normal left ventricular size with an ejection fraction of 35%. Regional wall motion abnormalities as described above. [id number] concentric left ventricular hypertrophy with impaired relaxation of the left ventricle. Right ventricle is mildly dilated in size with preserved systolic function. Moderate biatrial enlargement. Calcified aortic valve with no significant stenosis. No hemodynamically significant valvular disease. PA systolic pressure is estimated at 35-40 mmHg. Mildly dilated aortic root. Chest x-ray, 12/07/2024: Cardiomegaly without evidence of acute intrathoracic process CT head, 10/03/2024: No acute intracranial hemorrhage. 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 No CT findings of territorial ischemia (The ventricles, sulci and cisterns are age appropriate) (I question possible hydrocephalus) CT head, 12/09/2024: No acute intracranial abnormality. No significant changes compared to prior CT head vital signs Vital Sign Date Time Temp Pulse Resp B/P (MAP) Pulse Ox O2 Delivery O2 Flow Rate FiO2 12/09/24 05:00 98.9 47 18 145/68 (93) 97 98.9 12/08/24 20:00 Room Air* 0 21 Total Intake and Output 12/08/24 12/08/24 12/09/24 15:00 23:00 07:00 Intake Total 550 ml 230 ml Output Total 850 ml 400 ml Balance -300 ml -170 ml medications Current Medications Medications Dose Ordered Sig/Yue Route Start Time Stop Time Status Last Admin Dose Admin Atorvastatin Calcium 20 mg HS PO 12/07/24 22:00 12/08/24 21:16 20 MG Clopidogrel Bisulfate 75 mg DAILY PO 12/08/24 10:00 12/08/24 08:38 75 MG Levothyroxine Sodium 88 mcg QAM@0600 PO 12/08/24 06:00 12/09/24 05:25 88 MCG Metoprolol Tartrate 25 mg BID PO 12/07/24 22:00 12/08/24 21:18 25 MG Amlodipine Besylate 5 mg DAILY PO 12/08/24 10:00 12/08/24 08:36 5 MG Sodium Chloride 10 ml Q8HR IV 12/07/24 22:00 12/09/24 05:25 10 ML Acetaminophen/ Hydrocodone Bitart 1 tab Q4HP PRN PO 12/07/24 16:00 Ondansetron HCl 4 mg Q4HP PRN IV 12/07/24 16:00 Docusate Sodium 100 mg BIDPRN PRN PO 12/07/24 16:00 Acetaminophen 650 mg Q6HP PRN PO 12/07/24 16:00 Nitroglycerin 0.4 mg Q5MINP PRN SL 12/07/24 18:00 Morphine Sulfate 2 mg Q30M PRN IV 12/07/24 18:00 Clonidine HCl 0.2 mg Q6HP PRN PO 12/08/24 13:30 12/08/24 14:21 0.2 MG Lorazepam 1 mg ONCE PRN IV 12/08/24 21:15 objective General: the patient is well developed and nourished. No acute distress. MENTAL STATUS: Subjective SPEECH, LANGUAGE, HIGHER CORTICAL FUNCTION: no aphasia or dysathria. CRANIAL NERVES: Intact visual brand to confrontation. Pupils are equal, round and reactive. EOMs full and conjugate. Facial sensation intact in all three divisions bilaterally. Mandibular strength intact. Facial muscles symmetrical and strength intact. SENSATION: Sensation to touch and pinprick is normal. MOTOR: Normal tone in the upper and lower extremity. Normal muscle bulk. No fasciculations. No abnormal movements or posturing. Muscle strength of the major groups in the upper extremities is 4/5 with the left side weaker. Muscle strength of the major groups in the lower extremities is 4/5. REFLEXES: Deep tendon reflexes are symmetrical. No pathological reflexes Coordination: Deferred Gait: Deferred laboratory and microbiology Laboratory Tests 12/08/24 05:34 Test 12/08/24 05:34 Range/Units Serum Glucose 68 L 74-106 mg/dL Problem List Altered mental status Metabolic encephalopathy secondary to dehydration, hypernatremia ? Partial complex seizure Altered mental started with right-sided shaking ? Partial complex seizure History strokes x2 with left-sided weakness Atrial fibrillation not on anticoagulation treatment Reported dementia Assessment/Plan Monitoring Supportive treatment Telemetry EEG MRI head, report pending Plavix 75 mg daily Lipitor 20 mg daily Ativan for seizure breakthrough Category evaluation Re: A fib More recommendation per clinical course This medical document was created using an electronic medical record system with [employer] dictation system. Although this document has been carefully reviewed, there may still be some phonetic and typographical errors. These areas are purely typographical due to imperfections of the software programs, and do not reflect any compromise in the patient's medical care. Prognosis poor Plan discussed with: Other Total Time (mins): 40 ALEXANDRA BASILIO MD Dec 09, 2024 09:30
[2024-12-09] MEDS: hydrALAZINE HCL 20 MG/ML VL IV ONE (10:27)
--- NOTE | 2024-12-09 10:52 | DVH ---
PROCEDURE: MRI BRAIN HEAD WO CONTRAST INDICATION: sz, dementia EXAM DATE: 12/09/2024 09:45 AM COMPARISON: CT brain 12/09/2024 TECHNIQUE: MRI of the brain without intravenous contrast. FINDINGS: Limited by motion. Diffusion weighted images of the brain demonstrate no evidence of acute infarction. There is no evidence of acute intracranial hemorrhage, extra-axial collection, mass effect, midline s hift, herniation or hydrocephalus. Dilation of the lateral ventricles, consider normal pressure hydrocephalus. Advanced white matter disease likely related to chronic microvascular ischemic disease. Scattered areas of blooming artifact with the largest in the right posterior felicitas. The major vascular flow voids are present. Small amount of fluid in the left maxillary sinus. The surrounding soft tissues and osseous structur es are unremarkable. IMPRESSION: 1. Limited by significant motion. No acute ischemia. Advanced white matter disease likely related to chronic microvascular ischemic disease. Dilated lateral ventricles suggesting normal pressure hydroc ephalus. Clinical correlation is recommended. Scattered blooming artifact in both cerebral and cereb ellar hemispheres with involvement of the felicitas. Consider microangiopathy. HS:Y
--- NOTE | 2024-12-09 11:34 | DVHPN2 ---
Reviewed: Care Plan, H&P, Labs, Medications, Previous Orders, Radiology Changes from previous H/P or p: No Changes Eyes: No Pain, No Vision change, No Conjunctivae inflammation, No Eyelid inflammation, No Other, No Redness ENT: No Ear pain, No Ear discharge, No Nose pain, No Nose discharge, No Nose congestion, No Mouth pain, No Mouth swelling, No Throat pain, No Throat swelling, No Other Cardiovascular: No Chest Pain, No Palpitations, No Orthopnea, No Paroxysmal Noc. Dyspnea, No Edema, No Lt Headedness, No Other Respiratory: No Cough, No Dry, No Shortness of breath, No SOB with excertion, No Wheezing, No Hemoptysis, No Pleuritic Pain, No Sputum, No Other Gastrointestinal: No Nausea, No Vomiting, No Abdominal Pain, No Diarrhea, No Constipation, No Melena, No Hematochezia, No Other Genitourinary: No Dysuria, No Frequency, No Incontinence, No Hematuria, No Retention, No Other Musculoskeletal: No other, No neck pain, No shoulder pain, No arm pain, No back pain, No hand pain, No leg pain, No foot pain Skin: No Rash, No Lesions, No Jaundice, No Bruising, No Other Objective Vitals Vital Signs Date Time Temp Pulse Resp B/P (MAP) Pulse Ox O2 Delivery O2 Flow Rate FiO2 12/09/24 10:27 182/74 12/09/24 10:00 46 12/09/24 05:00 98.9 18 97 98.9 12/08/24 20:00 Room Air* 0 21 Intake/Output Intake and Output 12/09/24 07:00 Intake Total 780 ml Output Total 1250 ml Balance -470 ml Intake Oral 780 ml Output Urine Total 1250 ml Medications Current Medications Medications Dose Ordered Sig/Yue Route Start Time Stop Time Status Last Admin Dose Admin Atorvastatin Calcium 20 mg HS PO 12/07/24 22:00 12/08/24 21:16 20 MG Clopidogrel Bisulfate 75 mg DAILY PO 12/08/24 10:00 12/09/24 10:27 75 MG Levothyroxine Sodium 88 mcg QAM@0600 PO 12/08/24 06:00 12/09/24 05:25 88 MCG Metoprolol Tartrate 25 mg BID PO 12/07/24 22:00 12/08/24 21:18 25 MG Amlodipine Besylate 5 mg DAILY PO 12/08/24 10:00 12/08/24 08:36 5 MG Sodium Chloride 10 ml Q8HR IV 12/07/24 22:00 12/09/24 05:25 10 ML Acetaminophen/ Hydrocodone Bitart 1 tab Q4HP PRN PO 12/07/24 16:00 Ondansetron HCl 4 mg Q4HP PRN IV 12/07/24 16:00 Docusate Sodium 100 mg BIDPRN PRN PO 12/07/24 16:00 Acetaminophen 650 mg Q6HP PRN PO 12/07/24 16:00 Nitroglycerin 0.4 mg Q5MINP PRN SL 12/07/24 18:00 Morphine Sulfate 2 mg Q30M PRN IV 12/07/24 18:00 Clonidine HCl 0.2 mg Q6HP PRN PO 12/08/24 13:30 12/08/24 14:21 0.2 MG Lorazepam 1 mg ONCE PRN IV 12/08/24 21:15 Hydralazine HCl 10 mg Q6HR IV 12/09/24 12:00 Laboratory Results Laboratory Tests 12/08/24 05:34 Urinalysis Test 12/07/24 12:16 Urine Color Light-yellow (Yellow) Urine Clarity Clear (Clear) Urine pH 6.5 (5.0-9.0) Urine Specific [place] 1.014 (1.001-1.035) Urine Protein 2+ (Negative) H Urine Ketones Negative (Negative) Urine Blood Negative /uL (Negative) Urine Nitrite Negative (Negative) Urine Bilirubin Negative (Negative) Urine Urobilinogen Normal mg/dL (Negative) Urine Leukocyte Esterase Negative /uL (Negative) Urine RBC 10 /hpf (0 - 3) Urine Microscopic WBC 4 /HPF (0-3) H Urine Squamous Epithelial Cells Few /hpf (<5) Urine Bacteria Few /hpf (None Seen) H Urine Mucus Few (None Seen) Urine Glucose Normal mg/dL (Normal) Microbiology Microbiology Date/Time Source Procedure Growth Status 12/08/24 00:45 Nose MRSA Screen - Final Complete 12/07/24 12:16 Urine - [place] Urine Culture - Final Complete Labs and/or images reviewed: Labs reviewed by me, Image(s) reviewed by me Assessment/Plan Assessment/Plan Acute metabolic encephalopathy unknown etiology: CT head urine drug screen blood cultures Yu test COVID test D-dimer Hypotension: Metoprolol amlodipine Hypothyroidism: Synthroid Hypercholesterolemia: Lipitor Coronary artery disease: Plavix History of CVA History of MT Dementia Bradycardia: Hold amiodarone and metoprolol, hydralazine 10 mg IV q.6 hours p.r.n. Patient is hospice revoked [facility] Patient is full code Advanced care planning time 20 mts MRI brain shows normal pressure hydrocephalus, no acute changes Plan discussed with: Patient My Orders Orders - SHUKRI ROCHA MD Procedure Category Date Status Time Clonidine Hcl Tablet PHA 12/08/24 In Process (Catapres Tablet) 13:30 Drug Screen LAB 12/08/24 Logged 14:27 Blood Culture LEONID 12/08/24 In Process 14:27 * Oil [employer]iner CONS 12/08/24 Transmitted Consult * Neurology Consult CONS 12/08/24 Transmitted 14:32 Apply Barrier Cream IGLESIA 12/08/24 In Process 11:15 * Wound Consult CONS 12/08/24 Transmitted Head Without Contrast CT 12/09/24 Resulted 07:00 Date of Service: Dec 09, 2024 Billing Provider: SHUKRI ROCHA MD Common Visit Codes: [id number] INP/OBS CARE(HIGH) SHUKRI ROCHA MD Dec 09, 2024 11:34
[2024-12-09] MEDS ORDERED: hydrALAZINE HCL 20 MG/ML VL IV SCH (12:00)
--- NOTE | 2024-12-09 15:34 | DVHINCON2 ---
Date Seen: Dec 09, 2024 Referring Physician MD Jamie Reason for Consultation A-fib management History of Present Illness This is a 74-year-old man who presented to the emergency room from a [facility] via EMS with a chief complaint of an altered level of consciousness. The patient is a poor historian likely secondary to underlying dementia. Per records, he was noted to be altered with a associated facial droop prompting to call 911 upon EMS arrival he was found with a blood sugar level of 115 ng/dL, SBP 108 mmHg, and a HR of 96 bpm. He underwent a 12 lead electrocardiogram revealing a sinus rhythm with multiple PVCs. Baseline troponin level is negative. 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 Past Medical History Past medical history reviewed. No other significant than mentioned above. Past Surgical History PTCA x1 ALIYAH of the proximal to mid LAD (10/10/2023) Family History: Alzheimer's disease G8 FATHER Hypertension G8 MOTHER G8 FATHER Family History Family history reviewed. Social History Patient has a 63 pack-year history, quit smoking approximately one year ago. Patient denies any alcohol use. Patient denies any drug use. Allergies: Coded Allergies: Penicillins (Verified Allergy, Severe, 09/03/23) Aspirin (Verified Allergy, Mild, 10/11/23) Lisinopril (Verified Allergy, Mild, 10/15/23) Ibuprofen (Verified Allergy, Unknown, 10/11/23) Home Meds Active Scripts Levofloxacin Hemihydrate (LEVAQUIN 500 MG) 500 Mg Tab, 1 TAB PO DAILY, #15 TAB Prov:SHUKRI ROCHA MD 10/13/24 Clopidogrel Bisulfate (CLOPIDOGREL) 75 Mg Tab, 75 MG PO DAILY for 90 Days, #90 TAB Prov:RAMESH MENDIOLA MD 10/12/23 Reported Medications Lidocaine (Lidocaine) 5 % Pad, 1 DAILY 12/08/24 Levothyroxine Sodium (Levothyroxine Sodium) 88 Mcg Tab, 75 MCG PO QAM for 30 Days, MCG 10/05/24 Cyanocobalamin (Vitamin B12) 1,000 Mcg Tab, 1000 MCG PO DAILY, TAB 10/05/24 Hydralazine Hcl (Hydralazine Hcl) 25 Mg Tab, 25 MG PO TID for 30 Days, MG 10/05/24 Cholecalciferol (VITAMIN D3) 2,000 Unit Tab, 1000 TAB PO DAILY, TAB 10/10/23 Isosorbide Mononitrate (Isosorbide Mononitrate) 10 Mg Tab, 20 MG PO DAILY for 30 Days, MG 10/10/23 Atorvastatin Calcium (ATORVASTATIN CALCIUM) 40 Mg Tab, 1 TAB PO HS, #30 TAB 5 Refills 10/10/23 Amlodipine Besylate (Amlodipine Besylate) 5 Mg Tab, 10 MG PO DAILY for 30 Days, MG 10/10/23 Home Meds Home medications reviewed. Current Medications Current Medications Medications (Trade) Dose Ordered Sig/Yue Route PRN Reason Start Time Stop Time Status Last Admin Lorazepam (Ativan Inj) 1 mg ONCE PRN IV MRI 12/08/24 21:15 Hydralazine HCl (Apresoline Injection) 10 mg Q6HR IV 12/09/24 12:00 12/09/24 14:29 DC Review of Systems Constitutional: No symptom reported Ears, Nose, & Throat: No symptom reported Eyes: No symptom reported Neurological: ALOC with facial droop Pulmonary/Respiratory: No symptom reported Cardiovascular: No symptom reported Gastrointestinal: No symptom reported Genitourinary: No symptom reported Musculoskeletal: No symptom reported Skin: No symptom reported Psychiatric: No symptom reported Endocrine: No symptom reported Hemotologic/Lymphatic: No symptom reported Vital Signs Vital Signs Date Time Temp Pulse Resp B/P (MAP) Pulse Ox O2 Delivery O2 Flow Rate FiO2 12/09/24 14:29 62 116/62 (80) 12/09/24 08:00 Room Air* 0 21 12/09/24 05:00 98.9 18 97 98.9 Physical Exam General Appearance: Cooperative. Well developed. Well nourished. In no acute distress Head Exam: Normal inspection Neck Exam: Normal inspection. Non-tender. Normal alignment Pulmonary/Respiratory: Chest non-tender. Clear bilateral breath sounds Cardiovascular/Chest: Regular rate and rhythm. S1, S2. Sinus rhythm with multi ple PVCs. No murmurs. No JVD. Peripheral Pulses: 2+ Radial (R). 2+ Radial (L). 2+ Pedal (R). 2+ Pedal (L) Abdominal Exam: Normal bowel sounds. Soft. Nontender. No hepatospenomegaly. No masses Ankle Exam: Negative ankle edema Lower extremities: Negative lower extremity edema Neuro/Mental Status: A&O x2. Somewhat disoriented, calm Thoughts/Psych: Normal thought pattern. Appropriate mood and affect. Appearance: In no acute distress Skin Exam: Normal inspection. Normal color. Warm. Dry Labs/Diagnostic Data Labs Test 12/08/24 15:08 12/08/24 05:34 12/07/24 12:16 12/07/24 11:07 Range/Units Plasma/Serum Blood Alcohol 4.5 <10 mg/dL White Blood Count 4.4 4.4-10.8 10^3/uL Red Blood Count 3.44 L 4.5-5.90 10^6/uL Hemoglobin 10.9 L 13.5-17.5 g/dL Hematocrit 34.5 L 41.0-53.0 % Mean Corpuscular Volume 100.4 H 80.0-100.0 fL Mean Corpuscular Hemoglobin 31.7 28.0-32.0 pg Mean Corpuscular Hemoglobin Concent 31.6 L 32.0-36.0 g/dL Red Cell Distribution Width 18.2 H 11.8-14.3 % Platelet Count 261 140-450 10^3/uL Mean Platelet Volume 7.1 6.9-10.8 fL Neutrophils (%) (Auto) 55.9 37.0-80.0 % Lymphocytes (%) (Auto) 32.5 10.0-50.0 % Monocytes (%) (Auto) 6.4 0.0-12.0 % Eosinophils (%) (Auto) 3.8 0.0-7.0 % Basophils (%) (Auto) 1.4 0.0-2.0 % Neutrophils # (Auto) 2.5 1.6-8.6 10 ^3/uL Lymphocytes # (Auto) 1.4 0.4-5.4 10 ^3/uL Monocytes # (Auto) 0.3 0-1.3 10 ^3/uL Eosinophils # (Auto) 0.2 0-0.8 10 ^3/uL Basophils # (Auto) 0.1 0-0.2 10 ^3/uL Nucleated Red Blood Cells 0.3 % Sodium Level 143 136-145 mmol/L Potassium Level 4.5 3.5-5.1 mmol/L Chloride Level 112 H 98-107 mmol/L Carbon Dioxide Level 21 20-31 mmol/L Anion Gap 10 5-15 Blood Urea Nitrogen 29 H 9-23 mg/dL Creatinine 2.01 H 0.700-1.30 mg/dL Glomerular Filtration Rate Calc 34 >90 mL/min BUN/Creatinine Ratio 14.4 10.0-20.0 Serum Glucose 68 L 74-106 mg/dL Calcium Level 9.6 8.7-10.4 mg/dL Total Bilirubin 0.5 0.2-1.0 mg/dL Aspartate Amino Transferase (AST) 21 13-40 U/L Alanine Aminotransferase (ALT) < 9 7-40 U/L Alkaline Phosphatase 115 46-116 U/L Total Protein 6.8 5.7-8.2 g/dL Albumin 3.6 3.2-4.8 g/dL Urine Color Light-yellow Yellow Urine Clarity Clear Clear Urine pH 6.5 5.0-9.0 Urine Specific [place] 1.014 1.001-1.035 Urine Protein 2+ H Negative Urine Ketones Negative Negative Urine Blood Negative Negative /uL Urine Nitrite Negative Negative Urine Bilirubin Negative Negative Urine Urobilinogen Normal Negative mg/dL Urine Leukocyte Esterase Negative Negative /uL Urine RBC 10 0 - 3 /hpf Urine Microscopic WBC 4 H 0-3 /HPF Urine Squamous Epithelial Cells Few <5 /hpf Urine Bacteria Few H None Seen /hpf Urine Mucus Few None Seen Urine Glucose Normal Normal mg/dL POC Glucose 124 H 70-106 mg/dl Test 12/07/24 10:44 Range/Units Troponin I High Sensitivity 21 </=54 ng/L Microbiology Date/Time Source Procedure Growth Status 12/08/24 00:45 Nose MRSA Screen - Final Complete 12/07/24 12:16 Urine - [place] Urine Culture - Final Complete Assessment CAD with multi vessel disease s/p PTCA x1 ALIYAH to proximal to mid LAD (on Plavix) Ischemic cardiomyopathy with LVEF of 30% Chronic compensated HFrEF, NYHA class III CVA with residual left-sided deficit/bedbound status Pulmonary hypertension, severe Tricuspid valve regurgitation, severe Hypertension Hyperlipidemia Thyroid disease Diabetes mellitus Type II Dementia Hx of tobacco use Plan/Recommendation (Dr. Saha) Transthoracic echocardiogram from 10/11/23 revealed an EF 30%, RVSP 60 mmHg, and [id number] tricuspid valve regurgitation. We recommend continuation of guideline directed medical therapy for CHF as renal function permits as well as single-antiplatelet therapy, and lipid-lowering agent given LAD stent. All 12- lead electrocardiograms from this admission and previous admissions were reviewed in [facility] with no evidence of atrial fibrillation. There was a 12-lead ECG on 10/03/24 mistakenly read as atrial fibrillation by machine, accurate rhythm is sinus rhythm with multiple PVCs. The patient is cardiac stable at this time. Follow-up with primary assembler motor vehicle within 1-2 weeks post- discharge. There is no further cardiac work-up indicated at this time. Please call if in need to reconsult. Thank you for allowing us to care for this patient. This medical document was created using an electronic medical record system with voice recognition software and computerized dictation system. Although this document has been carefully reviewed, there might still be some phonetic and typographical errors. Occasional wrong-word or ``sound-alike substitutions may have occurred due to the inherent limitations of voice recognition software. These areas are purely typographical due to imperfections of the software programs and do not reflect any compromise in the patient's medical care. Please read the chart carefully and recognize, using context, where these substitutions have occurred. Plan discussed with: Patient, Other NYHA Physical activity limitations: Class1(None)absent sob, (fatigue,palpitaions w activity) Date of Service: Dec 09, 2024 Billing Provider: AYO SINHA Cardiology Common Codes: [id number] INP/OBS CARE (High) AYO SINHA Dec 09, 2024 15:34
--- NOTE | 2024-12-09 18:18 | DVHPN2 ---
Progress Note Date Seen: Dec 09, 2024 Medical Necessity Reason Pt with a Central, PICC or Fol: Yes The following are medically ne: Bacon Catheter Subjective Patient reports: Other Review of Systems: Deferred Objective vital signs Vital Sign Date Time Temp Pulse Resp B/P (MAP) Pulse Ox O2 Delivery O2 Flow Rate FiO2 12/09/24 16:31 98.0 58 18 145/69 (94) 99 98.0 12/09/24 08:00 Room Air* 0 21 Total Intake and Output 12/08/24 12/08/24 12/09/24 15:00 23:00 07:00 Intake Total 550 ml 230 ml Output Total 850 ml 400 ml Balance -300 ml -170 ml medications Current Medications Medications Dose Ordered Sig/Yue Route Start Time Stop Time Status Last Admin Dose Admin Atorvastatin Calcium 20 mg HS PO 12/07/24 22:00 12/08/24 21:16 Clopidogrel Bisulfate 75 mg DAILY PO 12/08/24 10:00 12/09/24 10:27 Levothyroxine Sodium 88 mcg QAM@0600 PO 12/08/24 06:00 12/09/24 05:25 Metoprolol Tartrate 25 mg BID PO 12/07/24 22:00 12/08/24 21:18 Amlodipine Besylate 5 mg DAILY PO 12/08/24 10:00 12/08/24 08:36 Sodium Chloride 10 ml Q8HR IV 12/07/24 22:00 12/09/24 14:20 Acetaminophen/ Hydrocodone Bitart 1 tab Q4HP PRN PO 12/07/24 16:00 Ondansetron HCl 4 mg Q4HP PRN IV 12/07/24 16:00 Docusate Sodium 100 mg BIDPRN PRN PO 12/07/24 16:00 Acetaminophen 650 mg Q6HP PRN PO 12/07/24 16:00 Nitroglycerin 0.4 mg Q5MINP PRN SL 12/07/24 18:00 Morphine Sulfate 2 mg Q30M PRN IV 12/07/24 18:00 Clonidine HCl 0.2 mg Q6HP PRN PO 12/08/24 13:30 12/08/24 14:21 Lorazepam 1 mg ONCE PRN IV 12/08/24 21:15 Empaglifozin 10 mg DAILY PO 12/10/24 10:00 Examination: NEURO:Abnormal laboratory and microbiology Laboratory Tests 12/08/24 05:34 Test 12/08/24 05:34 Range/Units Serum Glucose 68 L 74-106 mg/dL Microbiology Date/Time Source Procedure Growth Status 12/08/24 15:06 Blood Blood Culture - Preliminary NO GROWTH AFTER 24 HOURS OF INCUBATION. Resulted 12/08/24 00:45 Nose MRSA Screen - Final Complete 12/07/24 12:16 Urine - [place] Urine Culture - Final Complete Problem List/Assessment/Plan Problem List/Assessment/Plan Acute kidney injury on Chronic kidney disease IIIb hemodynamic mediated Congestive heart failure reduced ejection fraction Encephalopathy Hypertension Atrial fibrillation DNR Recommendations Kidney ultrasound rule out obstruction Conservative management slightly better renal function Plan discussed with: Other EMILIA PINEDA MD Dec 09, 2024 18:18
--- NOTE | 2024-12-09 20:20 | DVH ---
INDICATION: mirela TECHNIQUE: Multiple real-time sonographic images of the kidneys and bladder were obtained. COMPARISON: US KIDNEY on DOS: 10/15/23 FINDINGS: The right kidney measures 10.1 cm in length, which is normal in size. There is increased echogenicit y of the right kidney. No hydronephrosis. The left kidney measures 10.1 cm in length, which is normal in size. There is increased echogenicity of the left kidney. No hydronephrosis 3.4 x 3 x 2.8 cm left renal cyst. Limited evaluation of the urinary bladder due to inadequate distention with gunn catheter in place. IMPRESSION: Limited evaluation of the kidneys due to increased cortical echogenicity. Correlate for medical renal disease. 3.4 cm left renal cyst.
--- NOTE | 2024-12-09 21:03 | DVHEEG2 ---
Neurology EEG Procedural Note Procedural Note EXAM DATE: 12/09/24 REFERRING DOCTOR: Dr. Basilio TECHNIQUE: Eighteen channels of EEG, 2 channels of EOG, and 1 channel of EKG were recorded using the [employer] 10/20 system. CLINICAL DATA: The patient was referred for an EEG evaluation for the evidence of seizure disorder. MEDICATIONS: See the chart BACKGROUND ACTIVITY: There was significant amount of electrode artifacts. This record showed diffuse low amplitude theta activity over both hemispheres ACTIVATION: Hyperventilation: Not done Photic Stimulation: No photic convulsive response Sleep: Not seen IMPRESSION: This is a mildly abnormal EEG. This EEG is seen in mild cerebral dysfunction due to metabolic/hypoxic encephalopathy or medication effect, please correlate clinically The EKG channel showed a regular heart rate of 60 per minute. [place] [address] ALEXANDRA BASILIO MD Dec 09, 2024 21:03
[2024-12-10] VITALS (7 sets, daily range): BP systolic 140–169; BP diastolic 65–94; PULSE 53–74; RESP 16–18; TEMP 97.4–97.7; O2SAT 98–100
--- NOTE | 2024-12-10 09:38 | DVHPN2 ---
Reviewed: Care Plan, H&P, Labs, Medications, Previous Orders, Radiology Changes from previous H/P or p: No Changes Eyes: No Pain, No Vision change, No Conjunctivae inflammation, No Eyelid inflammation, No Other, No Redness ENT: No Ear pain, No Ear discharge, No Nose pain, No Nose discharge, No Nose congestion, No Mouth pain, No Mouth swelling, No Throat pain, No Throat swelling, No Other Cardiovascular: No Chest Pain, No Palpitations, No Orthopnea, No Paroxysmal Noc. Dyspnea, No Edema, No Lt Headedness, No Other Respiratory: No Cough, No Dry, No Shortness of breath, No SOB with excertion, No Wheezing, No Hemoptysis, No Pleuritic Pain, No Sputum, No Other Gastrointestinal: No Nausea, No Vomiting, No Abdominal Pain, No Diarrhea, No Constipation, No Melena, No Hematochezia, No Other Genitourinary: No Dysuria, No Frequency, No Incontinence, No Hematuria, No Retention, No Other Musculoskeletal: No other, No neck pain, No shoulder pain, No arm pain, No back pain, No hand pain, No leg pain, No foot pain Skin: No Rash, No Lesions, No Jaundice, No Bruising, No Other Objective Vitals Vital Signs Date Time Temp Pulse Resp B/P (MAP) Pulse Ox O2 Delivery O2 Flow Rate FiO2 12/10/24 05:00 97.4 58 16 140/77 (98) 99 97.4 12/09/24 20:00 Room Air* 0 21 Intake/Output Intake and Output 12/10/24 07:00 Intake Total 800 ml Output Total 850 ml Balance -50 ml Intake Oral 800 ml Output Urine Total 850 ml Medications Current Medications Medications Dose Ordered Sig/Yue Route Start Time Stop Time Status Last Admin Dose Admin Atorvastatin Calcium 20 mg HS PO 12/07/24 22:00 12/09/24 21:35 20 MG Clopidogrel Bisulfate 75 mg DAILY PO 12/08/24 10:00 12/09/24 10:27 75 MG Levothyroxine Sodium 88 mcg QAM@0600 PO 12/08/24 06:00 12/10/24 05:55 88 MCG Metoprolol Tartrate 25 mg BID PO 12/07/24 22:00 12/08/24 21:18 25 MG Amlodipine Besylate 5 mg DAILY PO 12/08/24 10:00 12/08/24 08:36 5 MG Sodium Chloride 10 ml Q8HR IV 12/07/24 22:00 12/10/24 05:55 10 ML Acetaminophen/ Hydrocodone Bitart 1 tab Q4HP PRN PO 12/07/24 16:00 Ondansetron HCl 4 mg Q4HP PRN IV 12/07/24 16:00 Docusate Sodium 100 mg BIDPRN PRN PO 12/07/24 16:00 Acetaminophen 650 mg Q6HP PRN PO 12/07/24 16:00 Nitroglycerin 0.4 mg Q5MINP PRN SL 12/07/24 18:00 Morphine Sulfate 2 mg Q30M PRN IV 12/07/24 18:00 Clonidine HCl 0.2 mg Q6HP PRN PO 12/08/24 13:30 12/08/24 14:21 0.2 MG Lorazepam 1 mg ONCE PRN IV 12/08/24 21:15 Empaglifozin 10 mg DAILY PO 12/10/24 10:00 Laboratory Results Laboratory Tests 12/08/24 05:34 Urinalysis Test 12/07/24 12:16 Urine Color Light-yellow (Yellow) Urine Clarity Clear (Clear) Urine pH 6.5 (5.0-9.0) Urine Specific [place] 1.014 (1.001-1.035) Urine Protein 2+ (Negative) H Urine Ketones Negative (Negative) Urine Blood Negative /uL (Negative) Urine Nitrite Negative (Negative) Urine Bilirubin Negative (Negative) Urine Urobilinogen Normal mg/dL (Negative) Urine Leukocyte Esterase Negative /uL (Negative) Urine RBC 10 /hpf (0 - 3) Urine Microscopic WBC 4 /HPF (0-3) H Urine Squamous Epithelial Cells Few /hpf (<5) Urine Bacteria Few /hpf (None Seen) H Urine Mucus Few (None Seen) Urine Glucose Normal mg/dL (Normal) Microbiology Microbiology Date/Time Source Procedure Growth Status 12/08/24 15:06 Blood Blood Culture - Preliminary NO GROWTH AFTER 24 HOURS OF INCUBATION. Resulted 12/08/24 00:45 Nose MRSA Screen - Final Complete 12/07/24 12:16 Urine - [place] Urine Culture - Final Complete Labs and/or images reviewed: Labs reviewed by me, Image(s) reviewed by me Assessment/Plan Assessment/Plan Acute metabolic encephalopathy unknown etiology: CT head negative, MRI brain shows normal pressure hydrocephalus blood cultures negative, urine cultures neg Hypertension: Metoprolol amlodipine Hypothyroidism: Synthroid Hypercholesterolemia: Lipitor Coronary artery disease: Plavix History of CVA with left hemiplegia History of [place] ANALILIA nephrology following Dementia Bradycardia: Hold amiodarone and metoprolol, hydralazine 10 mg IV q.6 hours p.r.n. Patient is hospice revoked Lives in [facility] facility Patient is full code Advanced care planning time 20 mts MRI brain shows normal pressure hydrocephalus, no acute changes Daughter KINGSLEY Lee [phone] at bedside Plan discussed with: Patient, Daughter My Orders Orders - SHUKRI ROCHA MD Procedure Category Date Status Time Code Status CODE 12/09/24 Transmitted 12:15 Date of Service: Dec 10, 2024 Billing Provider: SHUKRI ROCHA MD Common Visit Codes: 95711-HVB/OBS DISCH DAY >30min Secondary Visit Codes: [id number] CARE PLAN 30 MINUTES SHUKRI ROCHA MD Dec 10, 2024 09:38
[2024-12-10] MEDS: EMPAGLIFLOZIN 10 MG TAB PO SCH (11:15)
[2024-12-10 12:42] LABS: COVID19 ANTIGEN SOFIA FIA NEGATIVE (NEGATIVE)
--- NOTE | 2024-12-10 13:19 | DVHPN2 ---
Progress Note Date Seen: Dec 10, 2024 Medical Necessity Reason Pt with a Central, PICC or Fol: Yes The following are medically ne: Bacon Catheter Subjective Patient reports: Other (Poor historian) Review of Systems: Deferred Objective vital signs Vital Sign Date Time Temp Pulse Resp B/P (MAP) Pulse Ox O2 Delivery O2 Flow Rate FiO2 12/10/24 10:49 144/69 12/10/24 10:48 56 12/10/24 09:50 97.4 18 100 97.4 12/09/24 20:00 Room Air* 0 21 Total Intake and Output 12/09/24 12/09/24 12/10/24 15:00 23:00 07:00 Intake Total 300 ml 500 ml Output Total 450 ml 400 ml Balance -150 ml 100 ml medications Current Medications Medications Dose Ordered Sig/Yue Route Start Time Stop Time Status Last Admin Dose Admin Atorvastatin Calcium 20 mg HS PO 12/07/24 22:00 12/09/24 21:35 20 MG Clopidogrel Bisulfate 75 mg DAILY PO 12/08/24 10:00 12/10/24 11:15 75 MG Levothyroxine Sodium 88 mcg QAM@0600 PO 12/08/24 06:00 12/10/24 05:55 88 MCG Metoprolol Tartrate 25 mg BID PO 12/07/24 22:00 12/08/24 21:18 25 MG Amlodipine Besylate 5 mg DAILY PO 12/08/24 10:00 12/08/24 08:36 5 MG Sodium Chloride 10 ml Q8HR IV 12/07/24 22:00 12/10/24 05:55 10 ML Acetaminophen/ Hydrocodone Bitart 1 tab Q4HP PRN PO 12/07/24 16:00 Ondansetron HCl 4 mg Q4HP PRN IV 12/07/24 16:00 Docusate Sodium 100 mg BIDPRN PRN PO 12/07/24 16:00 Acetaminophen 650 mg Q6HP PRN PO 12/07/24 16:00 Nitroglycerin 0.4 mg Q5MINP PRN SL 12/07/24 18:00 Morphine Sulfate 2 mg Q30M PRN IV 12/07/24 18:00 Clonidine HCl 0.2 mg Q6HP PRN PO 12/08/24 13:30 12/08/24 14:21 0.2 MG Lorazepam 1 mg ONCE PRN IV 12/08/24 21:15 Empaglifozin 10 mg DAILY PO 12/10/24 10:00 12/10/24 11:15 10 MG Examination: NEURO:Abnormal laboratory and microbiology Laboratory Tests 12/08/24 05:34 Test 12/08/24 05:34 Range/Units Serum Glucose 68 L 74-106 mg/dL Microbiology Date/Time Source Procedure Growth Status 12/08/24 15:06 Blood Blood Culture - Preliminary NO GROWTH AFTER 24 HOURS OF INCUBATION. Resulted 12/08/24 00:45 Nose MRSA Screen - Final Complete 12/07/24 12:16 Urine - Bacon Port Urine Culture - Final Complete Problem List/Assessment/Plan Problem List/Assessment/Plan Acute kidney injury on Chronic kidney disease IIIb hemodynamic mediated Congestive heart failure reduced ejection fraction Encephalopathy Hypertension Atrial fibrillation DNR 3.4 cm renal cyst Hospice revoked Recommendations Kidney ultrasound --no hydronephrosis Conservative management slightly better renal function Labs as ordered Plan discussed with: Other My Orders My Orders Orders - EMILIA PINEDA MD Procedure Category Date Status Time Kidney US 12/09/24 Resulted 18:14 Basic Metabolic Panel LAB 12/10/24 Logged 11:16 EMILIA PINEDA MD Dec 10, 2024 13:19
[2024-12-10 14:18] LABS: Chloride 107 mmol/L (98-107); Potassium 4.3 mmol/L (3.5-5.1); Sodium 138 mmol/L (136-145)
[2024-12-10 14:19] LABS: Anion Gap 6 (5-15); Calcium 9.2 mg/dL (8.7-10.4); Carbon Dioxide 25 mmol/L (20-31)
[2024-12-10 14:24] LABS: BUN/Creatinine Ratio 18.2 (10.0-20.0); Glucose 86 mg/dL (74-106)
[2024-12-10 14:42] LABS: Blood Urea Nitrogen 34 mg/dL (9-23)
--- NOTE | 2024-12-10 21:56 | DVHPN2 ---
Progress Note - Dictate Date Seen: Dec 10, 2024 Medical Necessity Reason Pt with a Central, PICC or Fol: Yes The following are medically ne: Bacon Catheter Subjective Mr. Skip Ruiz is a 74 years old gentleman with a history of hypertension, diabetes, dyslipidemia, hypothyroidism, coronary artery disease, heart attack, congestive heart failure, atrial fibrillation failure, stroke, he was brought to a [facility] care facility on 12/07/2024 with a chief complaint of altered mental status I have seen and examined the patient was along with his nurse he was awake, oriented to person, he knows that he was not home. He does not want to talk Cardiology input appreciated [phone], no answer jah Plasma alcohol, 12/08/2024: 4.5 Urinalysis, 12/07/2024: Four, urine leukocyte esterase: Negative CBC, 12/08/2024: 4.4/10.9/261/100.4 Na, 12/07/2024: 146, 12/08/2024: 143 BUN/CR, 12/07/2024: 37/2.29, 12/08/2024: 29/2.01 Liver function tests, 12/08/2024: Unremarkable TG/HDL/LDL/HDL, 10/10/2023: 63/101/25/51 Vitamin B12, 10/07/2024: 1906 Folic acid, 10/07/2024: 7.45 TSH, 10/07/24: 1.31 EKG, 10/17/2023: AFib. 10/03/2024: AFib Echocardiogram, 10/09/2024: Normal left ventricular size with an ejection fraction of 35%. Regional wall motion abnormalities as described above. [id number] concentric left ventricular hypertrophy with impaired relaxation of the left ventricle. Right ventricle is mildly dilated in size with preserved systolic function. Moderate biatrial enlargement. Calcified aortic valve with no significant stenosis. No hemodynamically significant valvular disease. PA systolic pressure is estimated at 35-40 mmHg. Mildly dilated aortic root. Chest x-ray, 12/07/2024: Cardiomegaly without evidence of acute intrathoracic process CT head, 10/03/2024: No acute intracranial hemorrhage. 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 No CT findings of territorial ischemia (The ventricles, sulci and cisterns are age appropriate) (I question possible hydrocephalus) CT head, 12/09/2024: No acute intracranial abnormality. No significant changes compared to prior CT head MR brain, 12/09/2024: Limited by significant motion. No acute ischemia. Advanced white matter disease likely related to chronic microvascular ischemic disease. Dilated lateral ventricles suggesting normal pressure hydrocephalus. Clinical correlation is recommended. Scattered blooming artifact in both cerebral and cerebellar hemispheres with involvement of the felicitas. Consider microangiopathy vital signs Vital Sign Date Time Temp Pulse Resp B/P (MAP) Pulse Ox O2 Delivery O2 Flow Rate FiO2 12/10/24 17:04 97.7 58 16 154/84 (107) 98 97.7 12/10/24 08:00 Room Air* 0 21 Total Intake and Output 12/09/24 12/09/24 12/10/24 15:00 23:00 07:00 Intake Total 300 ml 500 ml Output Total 450 ml 400 ml Balance -150 ml 100 ml medications Current Medications Medications Dose Ordered Sig/Yue Route Start Time Stop Time Status Last Admin Dose Admin Atorvastatin Calcium 20 mg HS PO 12/07/24 22:00 12/09/24 21:35 20 MG Clopidogrel Bisulfate 75 mg DAILY PO 12/08/24 10:00 12/10/24 11:15 75 MG Levothyroxine Sodium 88 mcg QAM@0600 PO 12/08/24 06:00 12/10/24 05:55 88 MCG Metoprolol Tartrate 25 mg BID PO 12/07/24 22:00 12/08/24 21:18 25 MG Amlodipine Besylate 5 mg DAILY PO 12/08/24 10:00 12/08/24 08:36 5 MG Sodium Chloride 10 ml Q8HR IV 12/07/24 22:00 12/10/24 15:00 10 ML Acetaminophen/ Hydrocodone Bitart 1 tab Q4HP PRN PO 12/07/24 16:00 Ondansetron HCl 4 mg Q4HP PRN IV 12/07/24 16:00 Docusate Sodium 100 mg BIDPRN PRN PO 12/07/24 16:00 Acetaminophen 650 mg Q6HP PRN PO 12/07/24 16:00 Nitroglycerin 0.4 mg Q5MINP PRN SL 12/07/24 18:00 Morphine Sulfate 2 mg Q30M PRN IV 12/07/24 18:00 Clonidine HCl 0.2 mg Q6HP PRN PO 12/08/24 13:30 12/10/24 15:00 0.2 MG Lorazepam 1 mg ONCE PRN IV 12/08/24 21:15 Empaglifozin 10 mg DAILY PO 12/10/24 10:00 12/10/24 11:15 10 MG objective General: the patient is well developed and nourished. No acute distress. MENTAL STATUS: Subjective SPEECH, LANGUAGE, HIGHER CORTICAL FUNCTION: no aphasia or dysathria. CRANIAL NERVES: Intact visual brand to confrontation. Pupils are equal, round and reactive. EOMs full and conjugate. Facial sensation intact in all three divisions bilaterally. Mandibular strength intact. Facial muscles symmetrical and strength intact. SENSATION: Sensation to touch and pinprick is normal. MOTOR: Normal tone in the upper and lower extremity. Normal muscle bulk. No fasciculations. No abnormal movements or posturing. Muscle strength of the major groups in the upper extremities is 4/5 with the left side weaker. Muscle strength of the major groups in the lower extremities is 4/5. REFLEXES: Deep tendon reflexes are symmetrical. No pathological reflexes Coordination: Deferred Gait: Deferred laboratory and microbiology Laboratory Tests 12/10/24 13:53 12/08/24 05:34 Test 12/10/24 13:53 Range/Units Serum Glucose 86 74-106 mg/dL Problem List Altered mental status Metabolic encephalopathy secondary to dehydration, hypernatremia ? Partial complex seizure Altered mental started with right-sided shaking ? Partial complex seizure History strokes x2 with left-sided weakness Atrial fibrillation not on anticoagulation treatment Reported dementia ? NPH ? Alzheimer's disease I agree with MRI head report that the patient may have NPH, however I can not totally he has history of dementia, but per my observation, the patient was may have moderate degree of dementia, and he may not be a candidate of [employer] shunt Assessment/Plan Monitoring Supportive treatment Telemetry EEG Plavix 75 mg daily Lipitor 20 mg daily Ativan for seizure breakthrough Cardiology on case Re: A fib More recommendation per clinical course This medical document was created using an electronic medical record system with [employer] system. Although this document has been carefully reviewed, there may still be some phonetic and typographical errors. These areas are purely typographical due to imperfections of the software programs, and do not reflect any compromise in the patient's medical care. Prognosis poor Plan discussed with: Other ALEXANDRA BASILIO MD Dec 10, 2024 21:56
[2024-12-11] VITALS (8 sets, daily range): BP systolic 104–175; BP diastolic 70–90; PULSE 45–66; RESP 16–20; TEMP 95.5–98; O2SAT 98–100
--- NOTE | 2024-12-11 08:55 | DVHPN2 ---
Progress Note Date Seen: Dec 11, 2024 Medical Necessity Reason Pt with a Central, PICC or Fol: Yes The following are medically ne: Bacon Catheter Subjective Patient reports: Other Review of Systems: Deferred Objective vital signs Vital Sign Date Time Temp Pulse Resp B/P (MAP) Pulse Ox O2 Delivery O2 Flow Rate FiO2 12/11/24 05:00 95.5 50 18 157/70 (99) 99 95.5 12/10/24 20:00 Room Air* 0 21 Total Intake and Output 12/10/24 12/10/24 12/11/24 15:00 23:00 07:00 Intake Total 1000 ml 550 ml Output Total 550 ml 450 ml Balance 450 ml 100 ml medications Current Medications Medications Dose Ordered Sig/Yue Route Start Time Stop Time Status Last Admin Dose Admin Atorvastatin Calcium 20 mg HS PO 12/07/24 22:00 12/09/24 21:35 20 MG Clopidogrel Bisulfate 75 mg DAILY PO 12/08/24 10:00 12/10/24 11:15 75 MG Levothyroxine Sodium 88 mcg QAM@0600 PO 12/08/24 06:00 12/10/24 05:55 88 MCG Metoprolol Tartrate 25 mg BID PO 12/07/24 22:00 12/08/24 21:18 25 MG Amlodipine Besylate 5 mg DAILY PO 12/08/24 10:00 12/08/24 08:36 5 MG Sodium Chloride 10 ml Q8HR IV 12/07/24 22:00 12/11/24 06:32 10 ML Acetaminophen/ Hydrocodone Bitart 1 tab Q4HP PRN PO 12/07/24 16:00 Ondansetron HCl 4 mg Q4HP PRN IV 12/07/24 16:00 Docusate Sodium 100 mg BIDPRN PRN PO 12/07/24 16:00 Acetaminophen 650 mg Q6HP PRN PO 12/07/24 16:00 Nitroglycerin 0.4 mg Q5MINP PRN SL 12/07/24 18:00 Morphine Sulfate 2 mg Q30M PRN IV 12/07/24 18:00 Clonidine HCl 0.2 mg Q6HP PRN PO 12/08/24 13:30 12/10/24 15:00 0.2 MG Lorazepam 1 mg ONCE PRN IV 12/08/24 21:15 Empaglifozin 10 mg DAILY PO 12/10/24 10:00 12/10/24 11:15 10 MG Examination: GENERAL:Abnormal, NEURO:Abnormal laboratory and microbiology Laboratory Tests 12/10/24 13:53 12/08/24 05:34 Test 12/10/24 13:53 Range/Units Serum Glucose 86 74-106 mg/dL Microbiology Date/Time Source Procedure Growth Status 12/08/24 15:06 Blood Blood Culture - Preliminary NO GROWTH AFTER 48 HOURS OF INCUBATION. Resulted 12/08/24 00:45 Nose MRSA Screen - Final Complete 12/07/24 12:16 Urine - Bacon Port Urine Culture - Final Complete Problem List/Assessment/Plan Problem List/Assessment/Plan Acute kidney injury on Chronic kidney disease IIIb hemodynamic mediated Congestive heart failure reduced ejection fraction Encephalopathy Hypertension Atrial fibrillation DNR 3.4 cm renal cyst Hospice revoked Recommendations Kidney ultrasound --no hydronephrosis Conservative management slightly better renal function Plan discussed with: Other EMILIA PINEDA MD Dec 11, 2024 08:55
--- NOTE | 2024-12-11 10:06 | DVHPN2 ---
Reviewed: Care Plan, H&P, Labs, Medications, Previous Orders, Radiology Changes from previous H/P or p: No Changes Eyes: No Pain, No Vision change, No Conjunctivae inflammation, No Eyelid inflammation, No Other, No Redness ENT: No Ear pain, No Ear discharge, No Nose pain, No Nose discharge, No Nose congestion, No Mouth pain, No Mouth swelling, No Throat pain, No Throat swelling, No Other Cardiovascular: No Chest Pain, No Palpitations, No Orthopnea, No Paroxysmal Noc. Dyspnea, No Edema, No Lt Headedness, No Other Respiratory: No Cough, No Dry, No Shortness of breath, No SOB with excertion, No Wheezing, No Hemoptysis, No Pleuritic Pain, No Sputum, No Other Gastrointestinal: No Nausea, No Vomiting, No Abdominal Pain, No Diarrhea, No Constipation, No Melena, No Hematochezia, No Other Genitourinary: No Dysuria, No Frequency, No Incontinence, No Hematuria, No Retention, No Other Musculoskeletal: No other, No neck pain, No shoulder pain, No arm pain, No back pain, No hand pain, No leg pain, No foot pain Skin: No Rash, No Lesions, No Jaundice, No Bruising, No Other Objective Vitals Vital Signs Date Time Temp Pulse Resp B/P (MAP) Pulse Ox O2 Delivery O2 Flow Rate FiO2 12/11/24 08:00 Room Air* 0 21 12/11/24 05:00 95.5 50 18 157/70 (99) 99 95.5 Intake/Output Intake and Output 12/11/24 07:00 Intake Total 1550 ml Output Total 1000 ml Balance 550 ml Intake Oral 1550 ml Output Urine Total 1000 ml # Bowel Movements 2 Medications Current Medications Medications Dose Ordered Sig/Yue Route Start Time Stop Time Status Last Admin Dose Admin Atorvastatin Calcium 20 mg HS PO 12/07/24 22:00 12/09/24 21:35 20 MG Clopidogrel Bisulfate 75 mg DAILY PO 12/08/24 10:00 12/10/24 11:15 75 MG Levothyroxine Sodium 88 mcg QAM@0600 PO 12/08/24 06:00 12/10/24 05:55 88 MCG Metoprolol Tartrate 25 mg BID PO 12/07/24 22:00 12/08/24 21:18 25 MG Amlodipine Besylate 5 mg DAILY PO 12/08/24 10:00 12/08/24 08:36 5 MG Sodium Chloride 10 ml Q8HR IV 12/07/24 22:00 12/11/24 06:32 10 ML Acetaminophen/ Hydrocodone Bitart 1 tab Q4HP PRN PO 12/07/24 16:00 Ondansetron HCl 4 mg Q4HP PRN IV 12/07/24 16:00 Docusate Sodium 100 mg BIDPRN PRN PO 12/07/24 16:00 Acetaminophen 650 mg Q6HP PRN PO 12/07/24 16:00 Nitroglycerin 0.4 mg Q5MINP PRN SL 12/07/24 18:00 Morphine Sulfate 2 mg Q30M PRN IV 12/07/24 18:00 Clonidine HCl 0.2 mg Q6HP PRN PO 12/08/24 13:30 12/10/24 15:00 0.2 MG Lorazepam 1 mg ONCE PRN IV 12/08/24 21:15 Empaglifozin 10 mg DAILY PO 12/10/24 10:00 12/10/24 11:15 10 MG Laboratory Results Laboratory Tests 12/08/24 05:34 12/10/24 13:53 Chemistry Test 12/10/24 13:53 Calcium Level 9.2 mg/dL (8.7-10.4) Urinalysis Test 12/07/24 12:16 Urine Color Light-yellow (Yellow) Urine Clarity Clear (Clear) Urine pH 6.5 (5.0-9.0) Urine Specific Robert 1.014 (1.001-1.035) Urine Protein 2+ (Negative) H Urine Ketones Negative (Negative) Urine Blood Negative /uL (Negative) Urine Nitrite Negative (Negative) Urine Bilirubin Negative (Negative) Urine Urobilinogen Normal mg/dL (Negative) Urine Leukocyte Esterase Negative /uL (Negative) Urine RBC 10 /hpf (0 - 3) Urine Microscopic WBC 4 /HPF (0-3) H Urine Squamous Epithelial Cells Few /hpf (<5) Urine Bacteria Few /hpf (None Seen) H Urine Mucus Few (None Seen) Urine Glucose Normal mg/dL (Normal) Microbiology Microbiology Date/Time Source Procedure Growth Status 12/08/24 15:06 Blood Blood Culture - Preliminary NO GROWTH AFTER 48 HOURS OF INCUBATION. Resulted 12/08/24 00:45 Nose MRSA Screen - Final Complete 12/07/24 12:16 Urine - [place] Urine Culture - Final Complete Labs and/or images reviewed: Labs reviewed by me, Image(s) reviewed by me Assessment/Plan Assessment/Plan Acute metabolic encephalopathy unknown etiology: CT head negative, MRI brain shows normal pressure hydrocephalus blood cultures negative, urine cultures neg, EEG shows metabolic encephalopathy, Neurology consult by Dr. Ayala appreciated Hypertension: Metoprolol amlodipine Hypothyroidism: Synthroid, check TSH Hypercholesterolemia: Lipitor Coronary artery disease: Plavix History of CVA with left hemiplegia History of [place] ANALILIA nephrology following Dementia Bradycardia heart rate of 50: Hold amiodarone and metoprolol, hydralazine 10 mg IV q.6 hours p.r.n. Patient is hospice revoked Lives in [facility] facility Patient is full code Advanced care planning time 20 mts MRI brain shows normal pressure hydrocephalus, no acute changes Daughter KINGSLEY Lee [phone] at bedside, requested to be discharged back to board and care on hospice Plan discussed with: Patient My Orders Orders - SHUKRI ROCHA MD Procedure Category Date Status Time Thyroid Stimulating LAB 12/11/24 Verified Hormone 10:03 Date of Service: Dec 11, 2024 Billing Provider: SHUKRI ROCHA MD Common Visit Codes: [id number] INP/OBS CARE(HIGH) SHUKRI ROCHA MD Dec 11, 2024 10:05
--- NOTE | 2024-12-11 10:10 | CONS ---
Pharmacy Clinical Information: From Heart Failure Fallout Report on CQM Application, Joshua Vadlivia is a 74 year old male with PMH of HTN, T2DM, CVA with residual left sided deficit, CAD s/p PCTA , BPH, IBS, DM, TX, CKD, HFrEF (LVEF 30%), dementia, dyslipidemia, and thyroid. His home medications for heart failure include spironolactone, metorpolol tartrate, furosemide, hydralazine, and isosorbide mononitrate. His inpatient medications include empagliflozin and metoprolol tartrate. Per Cardiology, continue GDMT as renal function permits. Consider resuming MRA when renal function stabilizes. Consider switching to metoprolol succinate since the 2021 HF guidelines recommended sustained-release metoprolol to reduce mortality and hospitaliz ations. ARB/ARNi not currently recommended due to ANALILIA. ACEi not recommended due to allergy. Since serum glucose <130 and no HbA1c is available, an additional antihyperglycemic agent is not recommended at this time according to 2024 ADA guidelines for hospitalized patients. ORACIO BIANCHI PHARMACIST Dec 11, 2024 10:10
[2024-12-11 12:29] LABS: Alkaline Phosphatase 104 U/L (46-116); Anion Gap 5 (5-15); Aspartate Aminotransferase 17 U/L (13-40); BUN/Creatinine Ratio 17.8 (10.0-20.0); Carbon Dioxide 23 mmol/L (20-31); Potassium 4.4 mmol/L (3.5-5.1); Sodium 137 mmol/L (136-145); Total Protein 5.9 g/dL (5.7-8.2)
[2024-12-11 12:30] LABS: Alanine Aminotransferase < 9 U/L (7-40); Albumin 3.2 g/dL (3.2-4.8); Bilirubin, Total 0.5 mg/dL (0.2-1.0); Blood Urea Nitrogen 34 mg/dL (9-23); Chloride 109 mmol/L (98-107); Glucose 107 mg/dL (74-106)
--- NOTE | 2024-12-11 22:07 | DVHPN2 ---
Progress Note - Dictate Date Seen: Dec 11, 2024 Medical Necessity Reason Pt with a Central, PICC or Fol: Yes The following are medically ne: Bacon Catheter Subjective Mr. Skip Ruiz is a 74 years old gentleman with a history of hypertension, diabetes, dyslipidemia, hypothyroidism, coronary artery disease, heart attack, congestive heart failure, atrial fibrillation failure, stroke, he was brought to a [facility] care facility on 12/07/2024 with a chief complaint of altered mental status I have seen and examined the patient was along with his nurse he is awake, oriented to person, he does not where he is, he talks, reasonable social skills I have talked to his daughter, his [id number], she relates the patient was has had progressive memory problems for six years, starting with short-term memory difficulty, later the long-term memory has been affected sometimes, he remembers family members he sees on a regular basis, but not other children or family member. For many years, he has progressive gait disturbance, he walks slowly, he dragged his leg, since 08/2024, he has been bed-bound Since 08/2024, the patient was has no control on his bladder and bowel His father had dementia The patient has not had dementia treatment previously Daughter is not interested in more medical treatment on him, he was to be discharged hospice Given the degree of dementia, gait disturbance, incontinence, I agree the patient is not a candidate for NPH treatment Before the family brought him to the hospital, the patient became nonresponsive, eyes looking up, shaking on the right side of his body, along with shortness of breath, he has no history of seizure, and similar events previously. His daughter tried to avoid more medication on him. Plasma alcohol, 12/08/2024: 4.5 Urinalysis, 12/07/2024: Four, urine leukocyte esterase: Negative CBC, 12/08/2024: 4.4/10.9/261/100.4 Na, 12/07/2024: 146, 12/08/2024: 143 BUN/CR, 12/07/2024: 37/2.29, 12/08/2024: 29/2.01 Liver function tests, 12/08/2024: Unremarkable TG/HDL/LDL/HDL, 10/10/2023: 63/101/25/51 Vitamin B12, 10/07/2024: 1906 Folic acid, 10/07/2024: 7.45 TSH, 10/07/24: 1.31 EKG, 10/17/2023: AFib. 10/03/2024: AFib Echocardiogram, 10/09/2024: Normal left ventricular size with an ejection fraction of 35%. Regional wall motion abnormalities as described above. [id number] concentric left ventricular hypertrophy with impaired relaxation of the left ventricle. Right ventricle is mildly dilated in size with preserved systolic function. Moderate biatrial enlargement. Calcified aortic valve with no significant stenosis. No hemodynamically significant valvular disease. PA systolic pressure is estimated at 35-40 mmHg. Mildly dilated aortic root. Chest x-ray, 12/07/2024: Cardiomegaly without evidence of acute intrathoracic process CT head, 10/03/2024: No acute intracranial hemorrhage. 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 No CT findings of territorial ischemia (The ventricles, sulci and cisterns are age appropriate) (I question possible hydrocephalus) CT head, 12/09/2024: No acute intracranial abnormality. No significant changes compared to prior CT head MR brain, 12/09/2024: Limited by significant motion. No acute ischemia. Advanced white matter disease likely related to chronic microvascular ischemic disease. Dilated lateral ventricles suggesting normal pressure hydrocephalus. Clinical correlation is recommended. Scattered blooming artifact in both cerebral and cerebellar hemispheres with involvement of the felicitas. Consider microangiopathy vital signs Vital Sign Date Time Temp Pulse Resp B/P (MAP) Pulse Ox O2 Delivery O2 Flow Rate FiO2 12/11/24 17:00 97.3 58 20 175/76 (109) 99 97.3 12/11/24 08:00 Room Air* 0 21 Total Intake and Output 12/10/24 12/10/24 12/11/24 15:00 23:00 07:00 Intake Total 1000 ml 550 ml Output Total 550 ml 450 ml Balance 450 ml 100 ml medications Current Medications Medications Dose Ordered Sig/Yue Route Start Time Stop Time Status Last Admin Dose Admin Atorvastatin Calcium 20 mg HS PO 12/07/24 22:00 12/09/24 21:35 20 MG Clopidogrel Bisulfate 75 mg DAILY PO 12/08/24 10:00 12/11/24 10:35 75 MG Levothyroxine Sodium 88 mcg QAM@0600 PO 12/08/24 06:00 12/10/24 05:55 88 MCG Metoprolol Tartrate 25 mg BID PO 12/07/24 22:00 12/08/24 21:18 25 MG Amlodipine Besylate 5 mg DAILY PO 12/08/24 10:00 12/11/24 10:34 5 MG Sodium Chloride 10 ml Q8HR IV 12/07/24 22:00 12/11/24 14:00 10 ML Acetaminophen/ Hydrocodone Bitart 1 tab Q4HP PRN PO 12/07/24 16:00 Ondansetron HCl 4 mg Q4HP PRN IV 12/07/24 16:00 Docusate Sodium 100 mg BIDPRN PRN PO 12/07/24 16:00 Acetaminophen 650 mg Q6HP PRN PO 12/07/24 16:00 Nitroglycerin 0.4 mg Q5MINP PRN SL 12/07/24 18:00 Morphine Sulfate 2 mg Q30M PRN IV 12/07/24 18:00 Clonidine HCl 0.2 mg Q6HP PRN PO 12/08/24 13:30 12/10/24 15:00 0.2 MG Lorazepam 1 mg ONCE PRN IV 12/08/24 21:15 Empaglifozin 10 mg DAILY PO 12/10/24 10:00 12/11/24 10:35 10 MG objective General: the patient is well developed and nourished. No acute distress. MENTAL STATUS: Subjective SPEECH, LANGUAGE, HIGHER CORTICAL FUNCTION: no aphasia or dysathria. CRANIAL NERVES: Intact visual brand to confrontation. Pupils are equal, round and reactive. EOMs full and conjugate. Facial sensation intact in all three divisions bilaterally. Mandibular strength intact. Facial muscles symmetrical and strength intact. SENSATION: Sensation to touch and pinprick is normal. MOTOR: Normal tone in the upper and lower extremity. Normal muscle bulk. No fasciculations. No abnormal movements or posturing. Muscle strength of the major groups in the upper extremities is 4/5 with the left side weaker. Muscle strength of the major groups in the lower extremities is 4/5. REFLEXES: Deep tendon reflexes are symmetrical. No pathological reflexes Coordination: Deferred Gait: Deferred laboratory and microbiology Laboratory Tests 12/11/24 10:30 12/08/24 05:34 Test 12/11/24 10:30 Range/Units Serum Glucose 107 H 74-106 mg/dL Problem List Altered mental status Metabolic encephalopathy secondary to dehydration, hypernatremia ? Partial complex seizure Altered mental started with right-sided shaking Quite possible the patient had Partial complex seizure History strokes x2 with left-sided weakness Atrial fibrillation not on anticoagulation treatment Reported dementia NPH Alzheimer's disease I agree with MRI head report that the patient may have NPH, however I can not totally he has history of dementia, but per my observation, the patient was may have moderate degree of dementia, and he may not be a candidate of FORMSTONE FITTER shunt Assessment/Plan Monitoring Supportive treatment Telemetry EEG Plavix 75 mg daily Lipitor 20 mg daily No preventive seizure treatment for now Ativan for seizure breakthrough Cardiology on case Re: A fib More recommendation per clinical course This medical document was created using an electronic medical record system with [employer] dictation system. Although this document has been carefully reviewed, there may still be some phonetic and typographical errors. These areas are purely typographical due to imperfections of the software programs, and do not reflect any compromise in the patient's medical care. Prognosis poor Plan discussed with: Daughter, Other Total Time (mins): 40 ALEXANDRA BASILIO MD Dec 11, 2024 22:07
[2024-12-12 07:51] VITALS: PULSE 51
[2024-12-12 08:16] VITALS: PULSE 60; RESP 17; O2SAT 97
[2024-12-12 09:00] VITALS: BP 155/108; PULSE 60; RESP 17; TEMP 97.7; O2SAT 97
--- NOTE | 2024-12-12 09:26 | DVHDS2 ---
Discharge Summary Date of Admission Dec 07, 2024 at 17:46 Date of Discharge: Dec 12, 2024 Admitting Diagnosis Altered mental status Wounds: None Labs/Diagnostic Data: Laboratory Results Test 12/11/24 10:30 12/10/24 11:40 12/08/24 15:08 12/08/24 05:34 Sodium Level 137 mmol/L (136-145) Potassium Level 4.4 mmol/L (3.5-5.1) Chloride Level 109 mmol/L (98-107) Carbon Dioxide Level 23 mmol/L (20-31) Anion Gap 5 (5-15) Blood Urea Nitrogen 34 mg/dL (9-23) Creatinine 1.91 mg/dL (0.700-1.30) Glomerular Filtration Rate Calc 36 mL/min (>90) BUN/Creatinine Ratio 17.8 (10.0-20.0) Serum Glucose 107 mg/dL (74-106) Calcium Level 9.0 mg/dL (8.7-10.4) Magnesium Level 2.0 mg/dL (1.6-2.6) Total Bilirubin 0.5 mg/dL (0.2-1.0) Aspartate Amino Transferase (AST) 17 U/L (13-40) Alanine Aminotransferase (ALT) < 9 U/L (7-40) Alkaline Phosphatase 104 U/L (46-116) Total Protein 5.9 g/dL (5.7-8.2) Albumin 3.2 g/dL (3.2-4.8) Thyroid Stimulating Hormone (TSH) 1.96 uIU/mL (0.55-4.78) SARS-CoV-2 Antigen (Rapid) Negative (NEGATIVE) Plasma/Serum Blood Alcohol 4.5 mg/dL (<10) White Blood Count 4.4 10^3/uL (4.4-10.8) Red Blood Count 3.44 10^6/uL (4.5-5.90) Hemoglobin 10.9 g/dL (13.5-17.5) Hematocrit 34.5 % (41.0-53.0) Mean Corpuscular Volume 100.4 fL (80.0-100.0) Mean Corpuscular Hemoglobin 31.7 pg (28.0-32.0) Mean Corpuscular Hemoglobin Concent 31.6 g/dL (32.0-36.0) Red Cell Distribution Width 18.2 % (11.8-14.3) Platelet Count 261 10^3/uL (140-450) Mean Platelet Volume 7.1 fL (6.9-10.8) Neutrophils (%) (Auto) 55.9 % (37.0-80.0) Lymphocytes (%) (Auto) 32.5 % (10.0-50.0) Monocytes (%) (Auto) 6.4 % (0.0-12.0) Eosinophils (%) (Auto) 3.8 % (0.0-7.0) Basophils (%) (Auto) 1.4 % (0.0-2.0) Neutrophils # (Auto) 2.5 10 ^3/uL (1.6-8.6) Lymphocytes # (Auto) 1.4 10 ^3/uL (0.4-5.4) Monocytes # (Auto) 0.3 10 ^3/uL (0-1.3) Eosinophils # (Auto) 0.2 10 ^3/uL (0-0.8) Basophils # (Auto) 0.1 10 ^3/uL (0-0.2) Nucleated Red Blood Cells 0.3 % Test 12/07/24 12:16 12/07/24 11:07 12/07/24 10:44 Urine Color Light-yellow (Yellow) Urine Clarity Clear (Clear) Urine pH 6.5 (5.0-9.0) Urine Specific [place] 1.014 (1.001-1.035) Urine Protein 2+ (Negative) Urine Ketones Negative (Negative) Urine Blood Negative /uL (Negative) Urine Nitrite Negative (Negative) Urine Bilirubin Negative (Negative) Urine Urobilinogen Normal mg/dL (Negative) Urine Leukocyte Esterase Negative /uL (Negative) Urine RBC 10 /hpf (0 - 3) Urine Microscopic WBC 4 /HPF (0-3) Urine Squamous Epithelial Cells Few /hpf (<5) Urine Bacteria Few /hpf (None Seen) Urine Mucus Few (None Seen) Urine Glucose Normal mg/dL (Normal) POC Glucose 124 mg/dl (70-106) Troponin I High Sensitivity 21 ng/L (</=54) Other Laboratory Tests 12/11/24 10:30 12/08/24 05:34 Brief Hx & Hospital Course: 74-year-old male on hosp[facility] living [facility] brought in for altered mental status and confusion. CT head was negative MRI brain shows normal-pressure hydrocephalus blood cultures negative urine cultures negative EEG showed metabolic encephalopathy. Neurology consult by Dr. Ayala patient has had a bradycardia rate of 50 . Seen by Cardiology metoprolol was held. Patient was history of hypercholesterolemia hypothyroidism hypertension CVA and MA and severe dementia. Patient is back to baseline and being discharged back to [facility] on hospice. Discussed the plan with the patient's daughter Rosa. General condition poor but stable at the time of discharge Consults/Reason for consult Neurology Dr. Ayala Cardiology Operations or Procedures CT head MRI brain Condition at Discharge: Poor Final Diagnosis/Problems List Assessment/Plan Acute metabolic encephalopathy unknown etiology: CT head negative, MRI brain shows normal pressure hydrocephalus blood cultures negative, urine cultures neg, EEG shows metabolic encephalopathy, Neurology consult by Dr. 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 Discharge Disposition: Hospice - Home Discharge Instruct/Medications Diet: Cardiac 2g Na,low cholest Activity: Light activity Follow Up/Referral: Follow up with the hospice Medications: Resume all previous home meds except metoprolol 35 (Time taken for discharge summary 35 minutes) Discharge Statement: "Patient was advised to return to the ER or call 911 if any headaches, dizziness, shortness of breath, chest pain, abdominal pain, bleeding, fevers, or worsening of medical condition. Patient was counseled about treatment plan, medications, possible side effects, patientverbalized understanding. All questions were answered to the best of my ability. This discharge took greater then 30 minutes in planning, reviewing documentation, counseling the patient, and discussing with other team members." ASSESSMENT ASSESSMENT Hospital Course Marginally improved Assessment Assessment/Plan Acute metabolic encephalopathy unknown etiology: CT head negative, MRI brain shows normal pressure hydrocephalus blood cultures negative, urine cultures neg, EEG shows metabolic encephalopathy, Neurology consult by Dr. 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 Date of Service: Dec 12, 2024 Billing Provider: SHUKRI ROCHA MD Common Visit Codes: 43841-LAH/OBS DISCH DAY >30min SHUKRI ROCHA MD Dec 12, 2024 09:26
[2024-12-12 11:48] VITALS: BP 143/69; PULSE 52; RESP 18; TEMP 97.6; O2SAT 98
--- NOTE | 2024-12-12 12:26 | DVHPN2 ---
Progress Note Date Seen: Dec 12, 2024 Medical Necessity Reason Pt with a Central, PICC or Fol: Yes The following are medically ne: Bacon Catheter Subjective Patient reports: Other (No new events patient poor historian) Review of Systems: Deferred Objective vital signs Vital Sign Date Time Temp Pulse Resp B/P (MAP) Pulse Ox O2 Delivery O2 Flow Rate FiO2 12/12/24 09:28 155/108 12/12/24 09:28 60 12/12/24 08:16 17 97 Room Air* 0 21 12/11/24 21:00 98.0 98.0 Total Intake and Output 12/11/24 12/11/24 12/12/24 15:00 23:00 07:00 Intake Total 236 ml 356 ml 100 ml Output Total 500 ml 500 ml Balance 236 ml -144 ml -400 ml medications Current Medications Medications Dose Ordered Sig/Yue Route Start Time Stop Time Status Last Admin Dose Admin Atorvastatin Calcium 20 mg HS PO 12/07/24 22:00 12/11/24 22:00 20 MG Clopidogrel Bisulfate 75 mg DAILY PO 12/08/24 10:00 12/12/24 09:26 75 MG Levothyroxine Sodium 88 mcg QAM@0600 PO 12/08/24 06:00 12/12/24 06:14 88 MCG Metoprolol Tartrate 25 mg BID PO 12/07/24 22:00 12/12/24 09:28 25 MG Amlodipine Besylate 5 mg DAILY PO 12/08/24 10:00 12/12/24 09:28 5 MG Sodium Chloride 10 ml Q8HR IV 12/07/24 22:00 12/12/24 09:37 10 ML Acetaminophen/ Hydrocodone Bitart 1 tab Q4HP PRN PO 12/07/24 16:00 Ondansetron HCl 4 mg Q4HP PRN IV 12/07/24 16:00 Docusate Sodium 100 mg BIDPRN PRN PO 12/07/24 16:00 Acetaminophen 650 mg Q6HP PRN PO 12/07/24 16:00 Nitroglycerin 0.4 mg Q5MINP PRN SL 12/07/24 18:00 Morphine Sulfate 2 mg Q30M PRN IV 12/07/24 18:00 Clonidine HCl 0.2 mg Q6HP PRN PO 12/08/24 13:30 12/10/24 15:00 0.2 MG Lorazepam 1 mg ONCE PRN IV 12/08/24 21:15 Empaglifozin 10 mg DAILY PO 12/10/24 10:00 12/12/24 09:28 10 MG Examination: GENERAL:Abnormal, LUNGS:Abnormal, MSK:Abnormal, NEURO:Abnormal laboratory and microbiology Laboratory Tests 12/11/24 10:30 12/08/24 05:34 Test 12/11/24 10:30 Range/Units Serum Glucose 107 H 74-106 mg/dL Microbiology Date/Time Source Procedure Growth Status 12/08/24 15:06 Blood Blood Culture - Preliminary NO GROWTH AFTER 72 HOURS OF INCUBATION. Resulted 12/08/24 00:45 Nose MRSA Screen - Final Complete 12/07/24 12:16 Urine - [place] Urine Culture - Final Complete Problem List/Assessment/Plan Problem List/Assessment/Plan Acute kidney injury on Chronic kidney disease IIIb hemodynamic mediated Congestive heart failure reduced ejection fraction Encephalopathy Hypertension Atrial fibrillation DNR 3.4 cm renal cyst Hospice revoked Recommendations Kidney ultrasound --no hydronephrosis Conservative management slightly better renal function Patient being discharged on hospice will sign this case no further renal recs Plan discussed with: Other EMILIA PINEDA MD Dec 12, 2024 12:26
[2024-12-12 13:00] VITALS: BP 143/69; PULSE 52; RESP 18; TEMP 97.6; O2SAT 98
[2024-12-12 13:10] VITALS: PULSE 37
== END 2024-12-12 16:55 | disposition hospice, inpatient (51) | DRG 70 ==
LOC: EDBD 10:03 → ER 10:03 → OVERFLOW 17:46 → TELE-CENTR 22:19
PROVIDERS: ADMIT Family Medicine; ATTEND Family Medicine
DX: G93.41 Metabolic encephalopathy (principal); J69.0 Pneumonitis due to inhalation of food and vomit; R53.2 Functional quadriplegia; N17.9 Acute kidney failure, unspecified; I50.22 Chronic systolic (congestive) heart failure; I13.0 Hypertensive heart and chronic kidney disease with heart failure and stage 1 through stage 4 chronic kidney disease, or unspecified chronic kidney disease; G91.2 (Idiopathic) normal pressure hydrocephalus; I69.354 Hemiplegia and hemiparesis following cerebral infarction affecting left non-dominant side; E87.0 Hyperosmolality and hypernatremia; Z66 Do not resuscitate; Z20.822 Contact with and (suspected) exposure to COVID-19; E86.0 Dehydration; E11.22 Type 2 diabetes mellitus with diabetic chronic kidney disease; I48.91 Unspecified atrial fibrillation; I25.5 Ischemic cardiomyopathy; I27.20 Pulmonary hypertension, unspecified; N18.32 Chronic kidney disease, stage 3b; I25.10 Atherosclerotic heart disease of native coronary artery without angina pectoris; N40.0 Benign prostatic hyperplasia without lower urinary tract symptoms; I07.1 Rheumatic tricuspid insufficiency; E78.00 Pure hypercholesterolemia, unspecified; E03.9 Hypothyroidism, unspecified; N28.1 Cyst of kidney, acquired; I95.9 Hypotension, unspecified; G89.29 Other chronic pain; F02.C0 Dementia in other diseases classified elsewhere, severe, without behavioral disturbance, psychotic disturbance, mood disturbance, and anxiety; G30.9 Alzheimer's disease, unspecified; I49.3 Ventricular premature depolarization; Z88.6 Allergy status to analgesic agent; Z88.0 Allergy status to penicillin; Z88.3 Allergy status to other anti-infective agents; Z79.899 Other long term (current) drug therapy; Z79.82 Long term (current) use of aspirin; Z79.02 Long term (current) use of antithrombotics/antiplatelets; Z79.2 Long term (current) use of antibiotics; Z82.0 Family history of epilepsy and other diseases of the nervous system; Z82.49 Family history of ischemic heart disease and other diseases of the circulatory system; Z81.8 Family history of other mental and behavioral disorders; I25.2 Old myocardial infarction; Z98.61 Coronary angioplasty status; Z74.01 Bed confinement status
CPT/HCPCS: 36415; 70450; 70551; 71045; 76775; 80048; 80053; 80320; 81001; 82962; 83735; 84443; 84484; 85025; 87040; 87081; 87086; 87426; 93005; 95819; 96365; 96367; 97163; 99291; G0378; J1956; J3490